=== PATIENT | male | born 1965 | race Caucasian/White ===

== ENCOUNTER 2016-08-03 22:24 | Inpatient (IN) | payer MEDICAID ==
[2016-08-03] MEDS ORDERED: NS 1,000 ML IV ONE ×2 (22:40→23:53)
--- NOTE | 2016-08-03 22:45 | EDPHY ---
H & P HPI/ROS: HPI CHIEF COMPLAINT: Alcohol intoxication, found unresponsive HISTORY OF PRESENT ILLNESS: This patient is a 61-year-old male presents emergency room by EMS after he was found sleeping on his backpack on the sidewalk with another homeless person please make contact with them they realized that he was highly intoxicated with alcohol was unable to care for himself unable to walk and they called 911. EMS arrived and evaluated him they found him to be lethargic unable to participate in the history and physical brought him here to the emergency room. Upon arrival to the emergency room the patient is highly intoxicated with alcohol is able to tell me his name and date of . Patient is unable to tell me how much she drank tonight or if he ingested any other substance. Unclear if there was trauma. However no trauma seen on exam of note history review of systems is limited due the patient's clinical mental state of acute alcohol intoxication. Past Medical History: Unknown medical history Past Surgical History: Unknown surgical history Social History: Homeless, drinks alcohol unclear further drugs or tobacco products Family History: Noncontributory ROS REVIEW OF SYSTEMS: A comprehensive 10 point review of systems is otherwise negative aside from elements mentioned in the history of present illness. Exam Constitutional triage nursing summary reviewed, vital signs reviewed, lethargic, intoxicated with alcohol Eyes normal conjunctivae and sclera, EOMI, horizontal beating nystagmus consistent with acute alcohol intoxication HENT head/neck: no evidence of acute trauma normal inspection, atraumatic, moist mucus membranes, no epistaxis, neck supple/ no meningismus, no raccoon eyes. Respiratory clear to auscultation bilaterally, normal breath sounds, no respiratory distress, no wheezing. Cardiovascular rate normal, regular rhythm, no murmur, no edema, distal pulses normal. Gastrointestinal soft, non-tender, no rebound, no guarding, normal bowel sounds, no distension, no pulsatile mass. Genitourinary no CVA tenderness. Musculoskeletal no midline vertebral tenderness, full range of motion, no calf swelling, no tenderness of extremities, no meningismus, good pulses, neurovascularly intact. Skin pink, warm, & dry, no rash, skin atraumatic. Neurologic lethargic, intoxicated with alcohol, horizontal beating nystagmus acute alcohol intoxication, moves all his extremities Psychiatric normal mood/affect. Heme/Lymph/Immune no lymphadenopathy. Differential Diagnosis: Includes but is not limited to in a particular order acute alcohol intoxication, Possible other substance, intracranial bleed, hypothermia, cold exposure Medical Decision Making:This patient be placed on full manager monitoring, patient had a CT scan of the head to rule out significant intracranial trauma given how sleepy is with alcohol, will check blood work including alcohol level. Patient will be gently hydrated. Re-evaluation: CT scan of the head without IV contrast. The results of the study are sinusitis and atrophy The study was read by Dr. Khan. I viewed the images myself on the PACS system. EKG interpretation by me on record in [email or web address] system. Impression time of EKG 09/29/1945 this is a junctional rhythm rate of 37. I do not appreciate a P and a QRS complex together regular. This appears to be ventricular conduction junctional rhythm. 1155: at this time it is unclear if he is symptomatic from this junctional bradycardia as he is highly intoxicated with alcohol in the 475 range. He has been placed on a full manager monitoring. He is being hydrated of continue closely monitor. His blood pressure is stable. 0430: Re-examination at this time this patient is much more sober however still slurring his speech is aching that he is intoxicated with alcohol still. Will continue monitor for better sobriety. 0642: Re-examination at this time this patient is much more sober. This patient is stable gait. He is not vomiting he is not slurring speech he is ready for discharge. He feels comfortable discharge plan. He is, cooperative. Source: Patient Constitutional: Initial Vital Signs Temperature (C) 36.7 C 08/03/16 22:25 Heart Rate 52 L 08/03/16 22:25 Respiratory Rate 16 08/03/16 22:25 Blood Pressure 124/86 H 08/03/16 22:25 O2 Sat (%) 93 08/03/16 22:25 O2 Delivery Mode Nasal Cannula O2 (L/minute) 3 Allergies/Adverse Reactions: Unable to Assess Allergy (Unverified 08/03/16 23:04) Home Medications: Medication Instructions Recorded NK [No Known Home Meds] 08/03/16 Medical Decision Making - Data Points Laboratory Results: Laboratory Results 08/03/16 22:45 08/03/16 22:45 08/03/16 22:45 WBC 2.13 L 10^3/uL (3.80-9.50) RBC 4.62 10^6/uL (4.40-6.38) Hgb 13.0 L g/dL (13.7-17.5) Hct 39.8 L % (40.0-51.0) MCV 86.1 fL (81.5-99.8) MCH 28.1 pg (27.9-34.1) MCHC 32.7 g/dL (32.4-36.7) RDW 16.8 H % (11.5-15.2) Plt Count 160 10^3/uL (150-400) MPV 9.7 fL (8.7-11.7) Neut % (Auto) 27.3 L % (39.3-74.2) Lymph % (Auto) 56.3 H % (15.0-45.0) [place] % (Auto) 13.6 H % (4.5-13.0) Eos % (Auto) 1.4 % (0.6-7.6) Baso % (Auto) 1.4 % (0.3-1.7) Nucleat RBC Rel Count 0.0 % (0.0-0.2) Absolute Neuts (auto) 0.58 L 10^3/uL (1.70-6.50) Absolute Lymphs (auto) 1.20 10^3/uL (1.00-3.00) Absolute Monos (auto) 0.29 L 10^3/uL (0.30-0.80) Absolute Eos (auto) 0.03 10^3/uL (0.03-0.40) Absolute Basos (auto) 0.03 10^3/uL (0.02-0.10) Absolute Nucleated RBC 0.00 10^3/uL (0-0.01) Immature Gran % 0.0 % (0.0-1.1) Immature Gran # 0.00 10^3/uL (0.00-0.10) Sodium 147 H mEq/L (134-144) Potassium 4.3 mEq/L (3.5-5.2) Chloride 109 mEq/L (97-110) Carbon Dioxide 22 mEq/l (22-31) Anion Gap 16 mEq/L (8-16) BUN 7 mg/dL (7-23) Creatinine 0.5 L mg/dL (0.7-1.3) Estimated GFR > 60 Glucose 245 H mg/dL (70-100) Calcium 8.7 mg/dL (8.5-10.4) Ethyl Alcohol 475 H* mg/dL (0-10) Medications Given: Discontinued Medications Sodium Chloride (Ns) 1,000 mls @ 0 mls/hr IV ONCE ONE PRN Reason: Wide Open Stop: 08/03/16 22:41 Last Admin: 08/03/16 22:50 Dose: 1,000 mls Sodium Chloride (Ns) 1,000 mls @ 0 mls/hr IV ONCE ONE PRN Reason: Wide Open Stop: 08/03/16 23:54 Last Admin: 08/04/16 01:30 Dose: 1,000 mls Multivitamins 10 ml/ Folic Acid 2.5 mg/ Thiamine HCl 100 mg/ Magnesium Sulfate 2 gm/Sodium Chloride 1,015.5 mls @ 0 mls/hr IV EDNOW ONE PRN Reason: As Directed Stop: 08/03/16 23:54 Last Admin: 08/04/16 00:20 Dose: 1,015.5 mls Departure - Departure Disposition: Home, Routine, Self-Care Clinical Impression: Alcoholic intoxication Qualifiers: Complication of substance-induced condition: uncomplicated Qualifier Code: ( F10.120) Alcohol abuse with intoxication, uncomplicated Condition: Good Instructions: Alcohol Intoxication (ED) Referrals: Patient,NotPresent [Primary Care Provider] - As per Instructions
[2016-08-03 22:55] LABS: ADD DIFF? NO; ADD MORPH? NO; ADD SCAN? NO; ATYPICAL LYMPHOCYTE FLAG 30 (0-99); FRAGMENT RBC FLAG 0 (0-99); HEMATOCRIT 39.8 % (40.0-51.0); LEFT SHIFT FLG 0 (0-99); LIPEMIA HEMOLYSIS FLAG 80 (0-99); MEAN CELL HEMOGLOBIN 28.1 pg (27.9-34.1); MEAN CELL HEMOGLOBIN CONCENTR. 32.7 g/dL (32.4-36.7); MEAN CELL VOLUME 86.1 fL (81.5-99.8); MEAN PLATELET VOLUME 9.7 fL (8.7-11.7); PLATELET CLUMPS FLAG 20 (0-99); PLATELET COUNT 160 10^3/uL (150-400); RED BLOOD CELL COUNT 4.62 10^6/uL (4.40-6.38); RED CELL DISTRIBUTION WIDTH 16.8 % (11.5-15.2)
[2016-08-03 23:17] LABS: ANION GAP 16 mEq/L (8-16); CALCIUM 8.7 mg/dL (8.5-10.4); CARBON DIOXIDE 22 mEq/l (22-31); CHLORIDE 109 mEq/L (97-110); CREATININE 0.5 mg/dL (0.7-1.3); GLOMERULAR FILTRATION RATE > 60; GLUCOSE 245 mg/dL (70-100); POTASSIUM 4.3 mEq/L (3.5-5.2); SODIUM 147 mEq/L (134-144)
--- NOTE | 2016-08-03 23:18 | CT ---
CT Brain (Without Contrast) at 2258 hours History: Altered mental status, EtOH. Comparison: None. Technique: Axial computed tomographic images of the brain without contrast. Dose reduction technique s were utilized. Findings: Ventricles, cisterns, and sulci are slightly widened. No hydrocephalus, midline shift/felicitas iation, or epidural/subdural hematomas. No acute intraparenchymal hemorrhage, definite infarct, or ma ss effect. Bone windows demonstrate no displaced fractures. Bilateral sinusitis worse in the right ma xillary sinus. Impression: 1. Sinusitis. 2. Mild atrophy. 3. No hemorrhage or mass effect. 4.Consider MRI of the brain without and with contrast enhancement, if there is continued clinical con cern. Findings and recommendations discussed with Emergency Department physician, Dr. Anant Ness at 23 10 hour, today. Final report concurs with initial preliminary interpretation.
[2016-08-03 23:28] LABS: ETHANOL SERUM 475 mg/dL (0-10)
--- NOTE | 2016-08-03 23:49 | CPEKG ---
Heart Rate: 37 RR Interval: 1622 QRSD Interval: 150 QT Interval: 628 QTC Interval: 493 QRS [place]: 69 T Wave [place]: 100 EKG Severity - ABNORMAL ECG - EKG Impression: JUNCTIONAL ESCAPE RHYTHM EKG Impression: NONSPECIFIC INTRAVENTRICULAR CONDUCTION DELAY Electronically Signed By: Loreto Ramos 04-Aug-2016 15:12:01
[2016-08-03] MEDS ORDERED: MVI WITH VIT K 10 ML, FOLIC ACID 2.5 MG, THIAMINE HCL 100 MG, MAGNESIUM SULFATE 2 GM in... IV ONE (23:53)
--- NOTE | 2016-08-04 07:39 | CPEKG ---
Heart Rate: 58 RR Interval: 1034 P-R Interval: 212 QRSD Interval: 90 QT Interval: 512 QTC Interval: 504 P [place]: 0 QRS [place]: 47 T Wave [place]: 88 EKG Severity - ABNORMAL ECG - EKG Impression: SINUS RHYTHM EKG Impression: FIRST DEGREE AV BLOCK EKG Impression: PROLONGED QT INTERVAL Electronically Signed By: Loreto Ramos 04-Aug-2016 15:11:41
[2016-08-04] MEDS ORDERED: chlordiazePOXIDE 25 MG CAP PO ONE (10:06)
[2016-08-04] MEDS ORDERED: LORazepam 1 MG TAB PO ONE (12:43)
[2016-08-04] MEDS ORDERED: CHLORDIAZEPOXIDE 25MG PREPK#6 BTL TAKEHOME ONE (13:17)
[2016-08-04] MEDS ORDERED: LORazepam 2 MG/ML INJ IVP ONE ×2 (13:45→13:55)
[2016-08-04] MEDS ORDERED: ONDANSETRON 4 MG/2 ML VIAL IVP PRN (15:37)
[2016-08-04] MEDS ORDERED: PROMETHAZINE HCL 25 MG/ML INJ IVP PRN (15:37)
[2016-08-04] MEDS ORDERED: diphenhydrAMINE 25 MG CAP PO PRN (15:37)
[2016-08-04] MEDS ORDERED: ACETAMINOPHEN 325 MG TAB PO PRN (15:37)
[2016-08-04] MEDS ORDERED: ONDANSETRON DISINTEGRATING 4 MG TAB PO PRN (15:37)
[2016-08-04] MEDS ORDERED: ACETAMINOPHEN 650 MG SUPP PR PRN (15:37)
[2016-08-04] MEDS ORDERED: D50W 25 GM/50 ML SYR IVP PRN (15:37)
[2016-08-04] MEDS ORDERED: THIAMINE HCL 500 MG in NS 100 ML IV ONE (15:39)
[2016-08-04] MEDS ORDERED: MAG HYDROX/AL HYDROX/SIMETH 30 ML UDCUP PO PRN (15:39)
[2016-08-04] MEDS: LORazepam 2 MG/ML INJ IVP PRN ×4 (16:57→23:51)
[2016-08-04] MEDS: NS 1,000 ML IV SCH (16:57)
[2016-08-04] MEDS: oxyCODONE IR 5 MG TAB PO PRN (17:33)
[2016-08-04] MEDS: INSULIN LISPRO 100 UNIT/ML SC SCH (17:34)
[2016-08-04] MEDS: chlordiazePOXIDE 25 MG CAP PO SCH ×2 (19:45→21:47)
--- NOTE | 2016-08-04 22:37 | GHP ---
[f rep st] HISTORY AND PHYSICAL DATE OF ADMISSION: 08/04/2016 CHIEF COMPLAINT: Intoxication. HISTORY: This is a 51-year-old man who has previously been seen at this hospital, however his chart is listed under a different MR number. He presents after being found by police acutely intoxicated a nd asleep outside. They did attempt to wake him up outside, but he was essentially unable to walk. They felt that given how intoxicated he was, he would need to be brought to the emergency room for fu rther evaluation. At time of my evaluation, patient was arousable and moving all four extremities, b ut essentially only able to mutter unintelligible words. I am unable to obtain essentially any histo ry from him, and therefore the entirety of this history is obtained per ER and EMS report. The patie nt was found to be hypothermic in the ER and tremulous, and likely beginning to have what appears to be alcohol withdrawal as well. PAST MEDICAL HISTORY: Alcohol abuse and diabetes. Polysubstance abuse, alcohol withdrawal and seizu re. Pancreatitis. FAMILY HISTORY: Notable for diabetes. SOCIAL HISTORY: Apparently patient is homeless. Heavy alcohol use is noted in his chart, though aga in I am unable to discuss this with him. Also apparently per chart review, he is and his wif e would be his decision maker. REVIEW OF SYSTEMS: This is unobtainable secondary to patient's obtundation. PHYSICAL EXAM: VITAL SIGNS: BP 105/65, heart rate 122, respiratory rate 18, O2 sat is 93% on room a ir, temperature is 36.7. GENERAL APPEARANCE: This is a disheveled malodorous man. He is quite somn olent though arousable, and when arousable is unintelligible. EYES: Anicteric. HENT: Poor dentiti on. Oropharynx is clear. CARDIOVASCULAR: Tachycardic, regular, no MRG. ABDOMEN: Soft, nontender, nondistended. EXTREMITIES: No clubbing, cyanosis or edema. SKIN: Warm, dry, well perfused. NEUR O/PSYCH: Patient moves all 4 extremities. He is not responding to commands or understandable when h e speaks. CLINICAL DATA: Labs reviewed significant for white blood cell count of 2.13, hemoglobin of [address] atelets of 160. Sodium of 147. Glucose of 245. Blood alcohol level of 475. Head CT reviewed and interpreted independently by myself shows no acute findings. EKG reviewed and interpreted showing sinus rhythm on 1 EKG and another one showing a junctional escap e rhythm with a heart rate of 37. ASSESSMENT AND PLAN: This is a 51-year-old man with past medical history of alcohol abuse as well as polysubstance abuse presenting with acute intoxication and hypothermia. 1. Acute alcohol intoxication. This is in the setting of a history of heavy alcohol abuse and withd yohana, with withdrawal seizures. He is already tremulous and showing evidence of withdrawal, despite a recent blood alcohol level 475. He will be monitored on CIWA. He may require a higher level of c are if his alcohol withdrawal become severe. 2. Hypothermia secondary to exposure. His temperature was as low as 31.8 initially, now up to 36.7 following passive rewarming. 3. Junctional bradycardia. This does seem to have resolved. It was in the setting of hypothermia. Monitoring on telemetry. 4. Diabetes. Will place patient on sliding scale. He is currently not able to take p.o. secondary to his somnolence and intoxication. 5. History of alcoholic hepatitis. LFTs have been ordered and are pending. He is not jaundiced on exam. 6. CODE STATUS: Full; per prior H and P's he is and his would be his MD OSORIO. 7. Disposition: Inpatient status. Suspect he will need greater than 48 hours stay for evaluation a nd management of above given his multiple active comorbidities. 8. Patient is new to my care. Old records reviewed and summarized as per HPI and Past Medical Histo ry. Care plan reviewed with ER physician, including plans for admission. 9. Again please note that the patient has been seen previously at [facility] but his chart is under a different medical record number for unclear reasons. Name is the same. /[id number]/MODL
[2016-08-04 22:47] LABS: ALBUMIN 3.3 g/dL (3.5-5.0); BILIRUBIN-CONJUGATED 0.2 mg/dL (0.0-0.5); BILIRUBIN-UNCONJUGATED 0.8 mg/dL (0.0-1.1); TOTAL PROTEIN 5.9 g/dL (6.3-8.2)
[2016-08-05] MEDS: LORazepam 2 MG/ML INJ IVP PRN (03:32)
[2016-08-05] MEDS: oxyCODONE IR 5 MG TAB PO PRN ×2 (03:32→21:14)
[2016-08-05 04:24] LABS: PHENCYCLIDINE URINE BCH < 6 ng/ml (NEGATIVE); TETRAHYDROCANNABINOL URINE < 5 ng/mL (NEGATIVE)
[2016-08-05 04:29] LABS: PHENCYCLIDINE URINE BCH NEGATIVE (NEGATIVE); TETRAHYDROCANNABINOL URINE NEGATIVE (NEGATIVE)
[2016-08-05 05:47] LABS: % IMMATURE GRANULYOCYTES 0.2 % (0.0-1.1); ABSOLUTE IMMATURE GRANULOCYTES 0.01 10^3/uL (0.00-0.10); ADD DIFF? NO; ADD MORPH? NO; ADD SCAN? NO; ATYPICAL LYMPHOCYTE FLAG 0 (0-99); FRAGMENT RBC FLAG 0 (0-99); HEMATOCRIT 30.5 % (40.0-51.0); HEMOGLOBIN 9.9 g/dL (13.7-17.5); LEFT SHIFT FLG 0 (0-99); LIPEMIA HEMOLYSIS FLAG 80 (0-99); MEAN CELL HEMOGLOBIN 28.1 pg (27.9-34.1); MEAN CELL HEMOGLOBIN CONCENTR. 32.5 g/dL (32.4-36.7); MEAN CELL VOLUME 86.6 fL (81.5-99.8); MEAN PLATELET VOLUME 11.3 fL (8.7-11.7); PLATELET CLUMPS FLAG 0 (0-99); PLATELET COUNT 119 10^3/uL (150-400); RED BLOOD CELL COUNT 3.52 10^6/uL (4.40-6.38); RED CELL DISTRIBUTION WIDTH 17.5 % (11.5-15.2)
[2016-08-05 06:05] LABS: ANION GAP 8 mEq/L (8-16); CALCIUM 8.2 mg/dL (8.5-10.4); CARBON DIOXIDE 23 mEq/l (22-31); CHLORIDE 105 mEq/L (97-110); CREATININE 0.6 mg/dL (0.7-1.3); GLOMERULAR FILTRATION RATE > 60; GLUCOSE 196 mg/dL (70-100); INR 1.13 (0.83-1.16); MAGNESIUM 1.4 mg/dL (1.6-2.3); POTASSIUM 3.6 mEq/L (3.5-5.2); PROTIME(PATIENT) 14.4 SEC (12.0-15.0); SODIUM 136 mEq/L (134-144)
[2016-08-05] MEDS: THIAMINE HCL 500 MG in NS 100 ML IV SCH (09:14)
[2016-08-05] MEDS: chlordiazePOXIDE 25 MG CAP PO SCH ×3 (09:18→21:15)
[2016-08-05] MEDS: FOLIC ACID 1 MG TAB PO SCH (09:18)
[2016-08-05] MEDS: MULTIVITAMINS 1 EACH TAB PO SCH (09:18)
[2016-08-05] MEDS: INSULIN LISPRO 100 UNIT/ML SC SCH ×3 (09:19→18:16)
[2016-08-05] MEDS: ENOXAPARIN 40 MG/0.4 ML SYR SC SCH (09:20)
[2016-08-05] MEDS: LORazepam 1 MG TAB PO PRN ×2 (14:18→22:24)
--- NOTE | 2016-08-05 14:35 | HOSPPROG ---
Hospitalist Progress Note Assessment/Plan: 51-year-old male found down in the outpatient setting. Brought to the emergency room secondary to altered mental status. Chart reviewed. This is my 1st encounter with the patient. Discussed with the disease case manager. # alcohol withdrawal Continue CIWA protocol Patient does not want to discontinue his alcohol consumption Will continue supportive care Consider adding beer to the patient's diet once his withdrawal is better # diabetes Continue blood sugar control # acute alcohol intoxication Continue supportive care # hypothermia The patient has been warmed Temperature is within normal limits # junctional bradycardia This is in the setting of hypothermia Has resolved since hypothermia resolved # tachycardia Likely secondary to withdrawal Continue supportive care # disposition Unclear at this time The patient is homeless Reviewed with disease case manager Will continue to assess and evaluate disposition on a daily basis Subjective: Feeling weak and tremulous. No pain currently. No specific concerns or issues at this time. Objective: Vital Signs Temp Pulse Resp BP Pulse Ox 36.7 C 111 H 18 124/93 H 95 08/05/16 12:00 08/05/16 12:00 08/05/16 12:00 08/05/16 12:00 08/05/16 12:00 Laboratory Results 08/05/16 04:21 08/05/16 04:21 08/04/16 08/05/16 08/06/16 05:59 05:59 05:59 Intake Total 5420 Output Total 1250 Balance 4170 PT 14.4 SEC (12.0-15.0) 08/05/16 04:21 INR 1.13 (0.83-1.16) 08/05/16 04:21 - Physical Exam Constitutional: not in pain, chronically ill appearing, unkempt Eyes: PERRL, anicteric sclera, EOMI Ears, Nose, Mouth, Throat: moist mucous membranes, hearing normal, ears appear normal Cardiovascular: tachycardia, No JVD, No edema Respiratory: no respiratory distress, no rales or rhonchi, reduced air movement Gastrointestinal: No tenderness, No ascites, No guarding Skin: warm, abrasion, No pressure ulcer Musculoskeletal: no joint effusions, muscular tenderness, generalized weakness Neurologic: AAOx3 Psychiatric: interacting appropriately, not encephalopathic, poor insight, poor judgement, poor memory ICD10 Worksheet Patient Problems: Problems Problem Status Diagnosed Alcoholic intoxication Acute
[2016-08-05] MEDS ORDERED: MAGNESIUM SULF 2 GM/WATER 50 ML IV ONE (15:30)
[2016-08-05] MEDS ORDERED: NICOTINE 21 MG/24 HR PATCH TD ONE (20:26)
[2016-08-05] MEDS: NS 1,000 ML IV SCH (23:50)
[2016-08-06] MEDS: oxyCODONE IR 5 MG TAB PO PRN (02:02)
[2016-08-06 03:00] VITALS: PULSE 108
[2016-08-06 04:53] LABS: % IMMATURE GRANULYOCYTES 0.3 % (0.0-1.1); ABSOLUTE IMMATURE GRANULOCYTES 0.01 10^3/uL (0.00-0.10); ABSOLUTE NRBC COUNT 0.02 10^3/uL (0-0.01); ADD DIFF? NO; ADD MORPH? NO; ADD SCAN? NO; ATYPICAL LYMPHOCYTE FLAG 0 (0-99); FRAGMENT RBC FLAG 0 (0-99); HEMATOCRIT 30.6 % (40.0-51.0); LEFT SHIFT FLG 0 (0-99); LIPEMIA HEMOLYSIS FLAG 80 (0-99); MEAN CELL HEMOGLOBIN CONCENTR. 32.7 g/dL (32.4-36.7); MEAN CELL VOLUME 85.7 fL (81.5-99.8); MEAN PLATELET VOLUME 10.6 fL (8.7-11.7); NRBC-AUTO% 0.5 % (0.0-0.2); PLATELET CLUMPS FLAG 10 (0-99); PLATELET COUNT 97 10^3/uL (150-400); RED BLOOD CELL COUNT 3.57 10^6/uL (4.40-6.38); RED CELL DISTRIBUTION WIDTH 17.3 % (11.5-15.2)
[2016-08-06 05:12] LABS: ANION GAP 8 mEq/L (8-16); CALCIUM 8.6 mg/dL (8.5-10.4); CARBON DIOXIDE 24 mEq/l (22-31); CHLORIDE 103 mEq/L (97-110); CREATININE 0.7 mg/dL (0.7-1.3); GLOMERULAR FILTRATION RATE > 60; GLUCOSE 295 mg/dL (70-100); MAGNESIUM 1.8 mg/dL (1.6-2.3); POTASSIUM 3.7 mEq/L (3.5-5.2); SODIUM 135 mEq/L (134-144)
[2016-08-06 07:46] VITALS: BP 149/110; RESP 16; TEMP 97.7; O2SAT 96
[2016-08-06] MEDS: FOLIC ACID 1 MG TAB PO SCH (08:22)
[2016-08-06] MEDS: ENOXAPARIN 40 MG/0.4 ML SYR SC SCH ×2 (08:23→08:24)
[2016-08-06] MEDS: MULTIVITAMINS 1 EACH TAB PO SCH (08:23)
[2016-08-06] MEDS: chlordiazePOXIDE 25 MG CAP PO SCH (08:30)
[2016-08-06] MEDS: INSULIN LISPRO 100 UNIT/ML SC SCH (09:07)
[2016-08-06] MEDS: THIAMINE HCL 500 MG in NS 100 ML IV SCH (09:17)
--- NOTE | 2016-08-06 13:13 | GDS ---
[f rep st] DISCHARGE SUMMARY DISCHARGE DIAGNOSES: 1. Alcohol withdrawal. 2. Acute intoxication. 3. Diabetes mellitus. 4. Hypothermia. 5. Junctional bradycardia. 6. Tachycardia. STUDIES AND PROCEDURES DONE: CT of the head. PHYSICAL EXAM: GENERAL: The patient is alert. VITAL SIGNS: Afebrile at 36.5, pulse is 108, respir atory rate 16, blood pressure is 149/110. He is saturating 96% on room air. I have seen and evaluat ed the patient on the day of discharge. HOSPITAL COURSE: The patient is a 51-year-old male who was found down in the outpatient setting and brought to the emergency room. He was evaluated and diagnosed with: 1. Acute intoxication. This condition has resolved. 2. Severe alcohol withdrawal. During this hospital course, the patient was treated with CIWA protoc ol and supportive management. He was given thiamine and Librium. His withdrawal symptoms have signi ficantly improved. However, he remains tachycardic at the time of disposition. He is able to ambula te independently and feels comfortable. He states that he does not want to discontinue his alcohol c onsumption and plans to continue alcohol in the outpatient setting. 3. Hypertension. The patient was offered antihypertensive medications during this hospitalization a nd has chosen to refuse them. He will follow up at [facility] in the outpatient setting. 4. Diabetes mellitus. The patient's blood glucose is intermittently elevated. He is returning to h is regular medications. 5. Hypothermia. This is in the setting of acute intoxication. The patient is homeless and was foun d down. He was warmed and his temperature is normal. 6. Junctional bradycardia. This is in the setting of hypothermia. This has resolved. 7. Tachycardia. This is likely secondary to his acute withdrawal process and will resolve in the fu ture. DISPOSITION: The patient will be discharged to the street. There are no pending studies. Again, he has been offered antihypertensive medications as well as outpatient followup. He is refusing either . He was visited by a director of casework services who offered [facility] . He states that he does not wish to see any medical providers in the outpatient setting. He will g o to [facility] if it is felt necessary. I have educated the patient with regard to his dis continuation of his chronic alcohol. Again, he states that he has no desire to discontinue alcohol u se. I spent greater than 35 minutes in the care, coordination, and management of this patient's disp osition. /[id number]/MODL
[2016-08-07] MEDS ORDERED: THIAMINE HCL 100 MG TAB PO SCH (09:00)
== END 2016-08-06 10:54 | disposition home or self-care (01) | DRG 897 ==
LOC: EDBD 22:24 → MERGE 08-04 15:37 → OBSVTOIN 08-04 15:37 → F3E 08-04 16:31
PROVIDERS: ADMIT Internal Medicine; ATTEND Hospitalist
DX: F10.239 Alcohol dependence with withdrawal, unspecified (principal); F10.220 Alcohol dependence with intoxication, uncomplicated; E11.9 Type 2 diabetes mellitus without complications; T68.XXXA Hypothermia, initial encounter; X31.XXXA Exposure to excessive natural cold, initial encounter; Y92.480 Sidewalk as the place of occurrence of the external cause; R00.1 Bradycardia, unspecified; R00.0 Tachycardia, unspecified; I10 Essential (primary) hypertension; Z59.0 Homelessness
CPT/HCPCS: 80307; 96365; 97116-GP; 97161-GP; 97165-GO; G0480; J1650; J1815; J3411

== ENCOUNTER 2016-08-08 17:03 | Emergency (ER) | payer MEDICAID ==
--- NOTE | 2016-08-08 17:30 | EDPHY ---
H & P Time Seen by Provider: 08/08/16 17:10 HPI/ROS: CHIEF COMPLAINT: Shooting pains in my legs HISTORY OF PRESENT ILLNESS: Patient was discharged 08/06/2016 with alcohol withdrawal and diabetes. Discharge summary personally reviewed by myself. In addition history and physical dated 03/22/2016 reviewed personally by myself. Patient presents today saying he last alcohol was 10 minutes before arrival. He says he has for months been having shooting pains in my legs which are sharp and intermittent and have been keeping him awake at night. Not associated with any recent trauma or back pain or incontinence. Is associated with generalized malaise and weakness. He does continue to drink. No recent seizures or fall or injury. REVIEW OF SYSTEMS: Eye: no change in vision ENT: no sore throat Cardiac: no chest pain or syncope Pulmonary: no cough or SOB Abdomen: no vomiting, diarrhea, abdominal pain Musculoskeletal: no back pain Skin: no rash Neuro: no headache Constitutional: no fever : no urinary symptoms A comprehensive 10 point review of systems is otherwise negative aside from elements mentioned in the history of present illness. PAST MEDICAL HISTORY: Includes alcoholism, diabetes, pancreatitis, withdrawal seizures. Social history: Tobacco user and alcohol 10 minutes prior to arrival. General Appearance: Alert and conversant, cooperative. Eyes: No scleral icterus. ENT, Mouth: Normal mucous membranes. Respiratory: Normal respiratory effort, breath sounds equal, lungs are clear to auscultation. Cardiovascular: Regular rate and rhythm. Gastrointestinal: Abdomen is soft and non tender. Neurological: Alert and oriented x3. Normally conversant. Face symmetric, normal movement and sensation in all extremities. Ambulatory in the emergency department and not ataxic. Skin: Warm and dry, no rashes. No lacerations. Musculoskeletal: No peripheral edema and no joint swelling. No spinal tenderness. Both feet are warm and well perfused without evidence of cellulitis or frostbite. No skin discoloration or erythema or lymphangitis or blisters. Psychiatric: Not agitated. Patient states he intermittently hears voices, songs about bashing me. Not currently hearing voices or hallucinating. Not suicidal or homicidal. Emergency Department course/MDM: CBC, chemistry panel, alcohol level. 1800: Patient very slightly tremulous. 1 mg oral Ativan. Patient is asking if I think "he has ALS" and wants to know if I can admit him to the hospital for definitive testing so we can find out. I told him that he can be referred to Neurology. Currently I do not think the patient has evidence of cauda equina, compartment syndrome, frostbite, acute spinal cord compromise. I think that diabetic neuropathy is possible. He is not currently hallucinating or hearing voices and I think that delirium tremens also unlikely in the emergency department. The patient states to me he is not interested in alcohol cessation. Ambulatory at the time of discharge. Does not have clinical evidence of delirium tremens at this time. Smoking Status: Current every day smoker Constitutional: Initial Vital Signs Temperature (C) 36.4 C 08/08/16 17:05 Heart Rate 105 H 08/08/16 17:05 Respiratory Rate 16 08/08/16 17:05 Blood Pressure 145/92 H 08/08/16 17:05 O2 Delivery Mode Room Air Allergies/Adverse Reactions: MILK THISTEL Allergy (Uncoded 08/08/16 17:09) Home Medications: Medication Instructions Recorded No Known Home Meds 08/08/16 Medical Decision Making Differential Diagnosis: Differential considered including but not limited to frostbite, spinal cord abnormality, spinal stenosis, cauda equina, peripheral neuropathy, fracture or compartment syndrome. - Data Points Laboratory Results: Laboratory Results 08/08/16 17:25 08/08/16 17:25 08/08/16 17:25 WBC 4.55 10^3/uL (3.80-9.50) RBC 3.43 L 10^6/uL (4.40-6.38) Hgb 9.8 L g/dL (13.7-17.5) Hct 30.5 L % (40.0-51.0) MCV 88.9 fL (81.5-99.8) MCH 28.6 pg (27.9-34.1) MCHC 32.1 L g/dL (32.4-36.7) RDW 17.3 H % (11.5-15.2) Plt Count 132 L 10^3/uL (150-400) MPV 10.5 fL (8.7-11.7) Neut % (Auto) 51.6 % (39.3-74.2) Lymph % (Auto) 31.4 % (15.0-45.0) [place] % (Auto) 12.1 % (4.5-13.0) Eos % (Auto) 4.0 % (0.6-7.6) Baso % (Auto) 0.7 % (0.3-1.7) Nucleat RBC Rel Count 0.0 % (0.0-0.2) Absolute Neuts (auto) 2.35 10^3/uL (1.70-6.50) Absolute Lymphs (auto) 1.43 10^3/uL (1.00-3.00) Absolute Monos (auto) 0.55 10^3/uL (0.30-0.80) Absolute Eos (auto) 0.18 10^3/uL (0.03-0.40) Absolute Basos (auto) 0.03 10^3/uL (0.02-0.10) Absolute Nucleated RBC 0.00 10^3/uL (0-0.01) Immature Gran % 0.2 % (0.0-1.1) Immature Gran # 0.01 10^3/uL (0.00-0.10) Sodium 137 mEq/L (134-144) Potassium 3.5 mEq/L (3.5-5.2) Chloride 105 mEq/L (97-110) Carbon Dioxide 21 L mEq/l (22-31) Anion Gap 11 mEq/L (8-16) BUN 6 L mg/dL (7-23) Creatinine 0.7 mg/dL (0.7-1.3) Estimated GFR > 60 Glucose 260 H mg/dL (70-100) Calcium 8.7 mg/dL (8.5-10.4) Ethyl Alcohol 55 H mg/dL (0-10) Medications Given: Discontinued Medications Ibuprofen (Motrin) 600 mg PO EDNOW ONE Stop: 08/08/16 18:04 Last Admin: 08/08/16 18:05 Dose: 600 mg Lorazepam (Ativan Injection) 2 mg IVP EDNOW ONE Stop: 08/08/16 17:57 Last Admin: 08/08/16 18:24 Dose: Not Given Lorazepam (Ativan) 1 mg PO EDNOW ONE Stop: 08/08/16 18:02 Last Admin: 08/08/16 18:20 Dose: 1 mg Departure - Departure Disposition: Home, Routine, Self-Care Clinical Impression: Alcoholism Condition: Good Instructions: Alcohol Intoxication (ED), Alcohol Dependence (ED) Referrals: Mingo Méndez MD [Primary Care Provider] - As per Instructions Marc Grewal MD [Medical Doctor] - As per Instructions (neurology referral)
[2016-08-08 17:38] LABS: % IMMATURE GRANULYOCYTES 0.2 % (0.0-1.1); ABSOLUTE IMMATURE GRANULOCYTES 0.01 10^3/uL (0.00-0.10); ADD DIFF? NO; ADD MORPH? NO; ADD SCAN? NO; ATYPICAL LYMPHOCYTE FLAG 30 (0-99); FRAGMENT RBC FLAG 20 (0-99); HEMATOCRIT 30.5 % (40.0-51.0); HEMOGLOBIN 9.8 g/dL (13.7-17.5); LEFT SHIFT FLG 0 (0-99); LIPEMIA HEMOLYSIS FLAG 80 (0-99); MEAN CELL HEMOGLOBIN 28.6 pg (27.9-34.1); MEAN CELL HEMOGLOBIN CONCENTR. 32.1 g/dL (32.4-36.7); MEAN CELL VOLUME 88.9 fL (81.5-99.8); MEAN PLATELET VOLUME 10.5 fL (8.7-11.7); PLATELET CLUMPS FLAG 10 (0-99); PLATELET COUNT 132 10^3/uL (150-400); RED BLOOD CELL COUNT 3.43 10^6/uL (4.40-6.38); RED CELL DISTRIBUTION WIDTH 17.3 % (11.5-15.2)
[2016-08-08 17:53] LABS: ANION GAP 11 mEq/L (8-16); CALCIUM 8.7 mg/dL (8.5-10.4); CARBON DIOXIDE 21 mEq/l (22-31); CHLORIDE 105 mEq/L (97-110); CREATININE 0.7 mg/dL (0.7-1.3); ETHANOL SERUM 55 mg/dL (0-10); GLOMERULAR FILTRATION RATE > 60; GLUCOSE 260 mg/dL (70-100); POTASSIUM 3.5 mEq/L (3.5-5.2); SODIUM 137 mEq/L (134-144)
[2016-08-08] MEDS ORDERED: LORazepam 2 MG/ML INJ IVP ONE (17:56)
[2016-08-08] MEDS ORDERED: LORazepam 1 MG TAB PO ONE (18:01)
[2016-08-08] MEDS ORDERED: IBUPROFEN 600 MG TAB PO ONE (18:03)
[2016-08-08 18:26] VITALS: BP 145/95; PULSE 92; RESP 18; TEMP 98.1; O2SAT 100
== END 2016-08-08 18:37 | disposition home or self-care (01) ==
DX: F10.10 Alcohol abuse, uncomplicated (principal); E11.9 Type 2 diabetes mellitus without complications; F17.200 Nicotine dependence, unspecified, uncomplicated
CPT/HCPCS: G0480

== ENCOUNTER 2016-10-10 11:20 | Emergency (ER) | payer MEDICAID ==
[2016-10-10] MEDS ORDERED: NS 1,000 ML IV ONE (11:25)
--- NOTE | 2016-10-10 11:29 | EDPHY ---
HPI/HX/ROS/PE/MDM Narrative: CHIEF COMPLAINT: Found down HPI: The patient is a 51 year-old man with a history of extensive ED visits related to alcohol intoxication and withdrawal. The patient was found passed out, covered in own stool inside a public shower in a park. He states he does not know what happened. He complains of generally not feeling well. BGL was normal on scene and no medications were given. Apparently the 911 call was for unresponsive green party, but the patient was responsive for EMS. REVIEW OF SYSTEMS: Aside from elements discussed in the HPI, a comprehensive 10-point review of systems was reviewed and is negative. PMH:Alcoholism. History of alcohol withdrawal, hypertension, diabetes. SOCIAL HISTORY: Homeless. Admits to alcohol abuse. Denies drug abuse. PHYSICAL EXAM: General:Patient is alert, in no acute distress. ENT:Eyes are normal to inspection. ENT inspection normal. Neck: Normal inspection. Full range of motion. Respiratory:No respiratory distress. Breath sounds normal bilaterally. Cardiovascular: Regular rate and rhythm. Strong peripheral pulses. Normal cap refill. Abdomen:The abdomen is nontender to palpation. There are no peritoneal signs. There are normal bowel sounds. Back: Normal to inspection. No tenderness to palpation. Skin: Normal color. No rash. Warm and dry. Extremities: Normal appearance. Full range of motion. Neuro: Normal motor function. Normal sensory function. ED Course: 1300: Patient noted to have large formed brown stool. 1340: Patient ambulatory around ED without assistance. No sign of alcohol withdrawal at this time. MDM: This patient presents after being found down with altered mental status. We performed an extensive workup which is negative except for signs of severe alcohol intoxication. In reviewing the patient's chart, this is similar to multiple previous ER presentations. He has had several CTH in the past so I think the risk of repeat radiation from CTH probably outweighs benefit. At this point, the patient appears to have AMS secondary to intoxication, and can be safely transported to the [facility]. - Data Points Laboratory Results: Laboratory Results 10/10/16 11:31 10/10/16 11:31 10/10/16 10/10/16 11:31 11:31 WBC 6.66 10^3/uL 10^3/uL (3.80-9.50) RBC 3.83 10^6/uL L 10^6/uL (4.40-6.38) Hgb 11.7 g/dL L g/dL (13.7-17.5) Hct 34.8 % L % (40.0-51.0) MCV 90.9 fL fL (81.5-99.8) MCH 30.5 pg pg (27.9-34.1) MCHC 33.6 g/dL g/dL (32.4-36.7) RDW 19.8 % H % (11.5-15.2) Plt Count 79 10^3/uL L 10^3/uL (150-400) MPV 8.9 fL fL (8.7-11.7) Neut % (Auto) 77.6 % H % (39.3-74.2) Lymph % (Auto) 14.4 % L % (15.0-45.0) [place] % (Auto) 6.3 % % (4.5-13.0) Eos % (Auto) 0.5 % L % (0.6-7.6) Baso % (Auto) 0.3 % % (0.3-1.7) Nucleat RBC Rel Count 0.0 % % (0.0-0.2) Absolute Neuts (auto) 5.17 10^3/uL 10^3/uL (1.70-6.50) Absolute Lymphs (auto) 0.96 10^3/uL L 10^3/uL (1.00-3.00) Absolute Monos (auto) 0.42 10^3/uL 10^3/uL (0.30-0.80) Absolute Eos (auto) 0.03 10^3/uL 10^3/uL (0.03-0.40) Absolute Basos (auto) 0.02 10^3/uL 10^3/uL (0.02-0.10) Absolute Nucleated RBC 0.00 10^3/uL 10^3/uL (0-0.01) Immature Gran % 0.9 % % (0.0-1.1) Immature Gran # 0.06 10^3/uL 10^3/uL (0.00-0.10) Sodium 146 mEq/L H mEq/L (134-144) Potassium 4.1 mEq/L mEq/L (3.5-5.2) Chloride 107 mEq/L mEq/L (97-110) Carbon Dioxide 23 mEq/l mEq/l (22-31) Anion Gap 16 mEq/L mEq/L (8-16) BUN 12 mg/dL mg/dL (7-23) Creatinine 0.6 mg/dL L mg/dL (0.7-1.3) Estimated GFR > 60 Glucose 123 mg/dL H mg/dL (70-100) Calcium 8.2 mg/dL L mg/dL (8.5-10.4) Troponin I < 0.012 ng/mL ng/mL (0-0.034) Ethyl Alcohol 367 mg/dL H mg/dL (0-10) Medications Given: Discontinued Medications Sodium Chloride (Ns) 1,000 mls @ 0 mls/hr IV ONCE ONE PRN Reason: Wide Open Stop: 10/10/16 11:26 Last Admin: 10/10/16 11:29 Dose: 1,000 mls General Time Seen by Provider: 10/10/16 11:20 Initial Vital Signs: Initial Vital Signs Temperature (C) 36.5 C 10/10/16 11:30 Heart Rate 78 10/10/16 11:30 Respiratory Rate 18 10/10/16 11:30 Blood Pressure 129/77 H 10/10/16 11:30 O2 Sat (%) 99 10/10/16 11:30 O2 Delivery Mode Room Air Allergies/Adverse Reactions: No Allergies [NKDA] Allergy (Verified 08/04/16 18:19) MILK THISTEL Allergy (Uncoded 08/08/16 17:09) Home Medications: Medication Instructions Recorded Insulin Detemir [Levemir Flextouch] 14 unit SQ DAILY 08/04/16 Insulin Lispro [Humalog Kwikpen 10 unit SQ TIDMEAL 08/04/16 U-100] Acetaminophen [Tylenol 325mg (*)] 650 mg PO Q4HRS PRN #0 tab 08/06/16 Folic Acid [Folic Acid 1 MG (*)] 1 mg PO DAILY #0 tab 08/06/16 Multivitamins [Multivitamin (*)] 1 each PO DAILY #0 tab 08/06/16 Thiamine HCl [Vitamin B-1] 100 mg PO DAILY #0 tab 08/06/16 No Known Home Meds 08/08/16 Departure - Departure Disposition: Home, Routine, Self-Care Clinical Impression: Alcohol intoxication, Altered mental status Condition: Good Instructions: Abuse of Alcohol (ED) Additional Instructions: Follow-up with your primary doctor within 72 hours. Return to the Emergency Department for fever, chest pain, shortness of breath, increasing pain or other worsening of condition. Referrals: Patient,NotPresent [Unknown] - As per Instructions
[2016-10-10 11:33] VITALS: TEMP 97.7
[2016-10-10 11:42] LABS: % IMMATURE GRANULYOCYTES 0.9 % (0.0-1.1); ABSOLUTE IMMATURE GRANULOCYTES 0.06 10^3/uL (0.00-0.10); ADD DIFF? NO; ADD MORPH? NO; ADD SCAN? NO; ATYPICAL LYMPHOCYTE FLAG 10 (0-99); FRAGMENT RBC FLAG 0 (0-99); HEMATOCRIT 34.8 % (40.0-51.0); HEMOGLOBIN 11.7 g/dL (13.7-17.5); LEFT SHIFT FLG 0 (0-99); LIPEMIA HEMOLYSIS FLAG 80 (0-99); MEAN CELL HEMOGLOBIN 30.5 pg (27.9-34.1); MEAN CELL HEMOGLOBIN CONCENTR. 33.6 g/dL (32.4-36.7); MEAN CELL VOLUME 90.9 fL (81.5-99.8); MEAN PLATELET VOLUME 8.9 fL (8.7-11.7); PLATELET CLUMPS FLAG 0 (0-99); PLATELET COUNT 79 10^3/uL (150-400); RED BLOOD CELL COUNT 3.83 10^6/uL (4.40-6.38); RED CELL DISTRIBUTION WIDTH 19.8 % (11.5-15.2)
--- NOTE | 2016-10-10 11:43 | CPEKG ---
Heart Rate: 74 RR Interval: 811 P-R Interval: 168 QRSD Interval: 94 QT Interval: 412 QTC Interval: 457 P [place]: 57 QRS [place]: 79 T Wave [place]: 67 EKG Severity - NORMAL ECG - EKG Impression: SINUS RHYTHM Electronically Signed By: Luis Fernando Moyer 10-Oct-2016 14:53:08
[2016-10-10 12:05] LABS: ANION GAP 16 mEq/L (8-16); CALCIUM 8.2 mg/dL (8.5-10.4); CARBON DIOXIDE 23 mEq/l (22-31); CHLORIDE 107 mEq/L (97-110); CREATININE 0.6 mg/dL (0.7-1.3); GLOMERULAR FILTRATION RATE > 60; GLUCOSE 123 mg/dL (70-100); POTASSIUM 4.1 mEq/L (3.5-5.2); SODIUM 146 mEq/L (134-144)
[2016-10-10 12:16] LABS: TROPONIN I < 0.012 ng/mL (0-0.034)
[2016-10-10 12:30] LABS: ETHANOL SERUM 367 mg/dL (0-10)
[2016-10-10 12:55] VITALS: RESP 18
[2016-10-10 14:13] VITALS: BP 128/75; PULSE 89; O2SAT 94
== END 2016-10-10 14:13 | disposition home or self-care (01) ==
LOC: EDUNIT#
DX: F10.129 Alcohol abuse with intoxication, unspecified (principal); R41.82 Altered mental status, unspecified; I10 Essential (primary) hypertension; E11.9 Type 2 diabetes mellitus without complications; Z79.4 Long term (current) use of insulin
CPT/HCPCS: G0480

== ENCOUNTER 2016-10-10 15:23 | Inpatient (IN) | payer MEDICAID ==
[2016-10-10] MEDS ORDERED: LORazepam 2 MG/ML INJ IVP ONE ×2 (15:43→18:08)
[2016-10-10] MEDS ORDERED: NS 1,000 ML IV ONE (15:44)
--- NOTE | 2016-10-10 15:56 | EDPHY ---
H & P Stated Complaint: dc from ed/? fell thinks he broke r hip/neck pain Time Seen by Provider: 10/10/16 15:31 HPI/ROS: CHIEF COMPLAINT: Neck pain, right hip pain after mechanical fall HISTORY OF PRESENT ILLNESS: The patient presents to the ED for evaluation of neck pain and right hip pain after mechanical fall. The patient was in the ED earlier today with alcohol intoxication and discharged after having sobriety inability to walk independently. The patient [facility] at that point time. The patient did developed symptoms of alcohol withdrawal after discharge. 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 The patient complains of 9/10 pain in his right hip. He also complains of pain throughout the right side of his neck. The patient denies abdominal pain, numbness, weakness or other concerns. REVIEW OF SYSTEMS: A comprehensive 10 point review of systems is otherwise negative aside from elements mentioned in the history of present illness. Source: Patient Exam Limitations: No limitations - Personal History Current Tetanus/Diphtheria Vaccine: Yes Tetanus Vaccine Date: 11/04/12 - Medical/Surgical History Hx Asthma: No Hx Chronic Respiratory Disease: No Hx Diabetes: Yes Hx Cardiac Disease: No Hx Renal Disease: No Hx Cirrhosis: No Hx Alcoholism: Yes Hx HIV/AIDS: No Hx Splenectomy or Spleen Trauma: No Other PMH: ETOH ABUSE. insulin dependent diabetic non compliant - Social History Smoking Status: Current every day smoker - Physical Exam Exam: General Appearance: Tremulous, no acute distress, thin male Head: Atraumatic Eyes: Pupils equal, round, reactive ENT, Mouth: No hemotympanum, no oral trauma Neck: Nontender, trachea midline Respiratory: No chest wall tender, subcutaneous air, lungs clear bilaterally Cardiovascular: Tachycardic Abdomen: Abdomen is soft and nontender, pelvis stable Skin: No lacerations, No abrasion Back: No midline T/L/S pain Extremities: Tenderness to palpation and painful range of motion noted in the right hip Neurological: A&Ox3, normal motor function, normal sensory exam Constitutional: Initial Vital Signs Temperature (C) 36.2 C 10/10/16 15:24 Heart Rate 86 10/10/16 15:24 Respiratory Rate 18 10/10/16 15:24 Blood Pressure 98/74 L 10/10/16 15:24 O2 Sat (%) 95 10/10/16 15:24 O2 Delivery Mode Room Air Allergies/Adverse Reactions: No Allergies [NKDA] Allergy (Verified 10/10/16 15:24) MILK THISTEL Allergy (Uncoded 08/08/16 17:09) Home Medications: Medication Instructions Recorded Insulin Detemir [Levemir Flextouch] 14 unit SQ DAILY 08/04/16 Insulin Lispro [Humalog Kwikpen 10 unit SQ TIDMEAL 08/04/16 U-100] Acetaminophen [Tylenol 325mg (*)] 650 mg PO Q4HRS PRN #0 tab 08/06/16 Folic Acid [Folic Acid 1 MG (*)] 1 mg PO DAILY #0 tab 08/06/16 Multivitamins [Multivitamin (*)] 1 each PO DAILY #0 tab 08/06/16 Thiamine HCl [Vitamin B-1] 100 mg PO DAILY #0 tab 08/06/16 Medical Decision Making - Diagnostics Imaging: Right hip x-ray: Negative for acute fracture. Images reviewed by myself and discussed with radiologist. CT head without contrast: Negative for intracranial hemorrhage, skull fracture or other acute abnormality. Images reviewed by myself and discussed with radiologist Dr. Emile Gentile. CT cervical spine without contrast: Negative for acute fracture. Images reviewed by myself. ED Course/Re-evaluation: The patient presents to the ED with traumatic complaints of headache, neck pain and right hip pain following a mechanical fall secondary to mild alcohol withdrawal. The patient had an IV established. He received 2 mg of IV Ativan. The patient was taken for a stat CT scan of his head and cervical spine which demonstrate no evidence of an acute fracture or intracranial hemorrhage. X-ray of his right hip demonstrates no evidence of an acute fracture. I re-evaluated the patient at 6:00 p.m.. He continues to have symptoms of alcohol withdrawal. The patient was given 50 mg of Librium. The patient is not eligible to go to the [facility] secondary to his diabetes and insulin requirement. The patient will be admitted to the hospital for observation this evening as he is homeless and would not be well served being discharged into the wet snowy night. Consultation was made with Dr. Eli from the hospitalist service who will admit the patient Differential Diagnosis: Differential diagnosis considered includes intracranial hemorrhage, alcohol withdrawal, metabolic abnormality, hip fracture, cervical spine fracture - Data Points Laboratory Results: Laboratory Results 10/10/16 16:00 10/10/16 16:45 10/10/16 10/10/16 10/10/16 16:45 16:00 16:00 WBC 5.81 10^3/uL 10^3/uL (3.80-9.50) RBC 3.78 10^6/uL L 10^6/uL (4.40-6.38) Hgb 11.7 g/dL L g/dL (13.7-17.5) Hct 34.1 % L % (40.0-51.0) MCV 90.2 fL fL (81.5-99.8) MCH 31.0 pg pg (27.9-34.1) MCHC 34.3 g/dL g/dL (32.4-36.7) RDW 19.9 % H % (11.5-15.2) Plt Count 88 10^3/uL L 10^3/uL (150-400) MPV 9.4 fL fL (8.7-11.7) Neut % (Auto) 79.0 % H % (39.3-74.2) Lymph % (Auto) 14.8 % L % (15.0-45.0) [place] % (Auto) 5.3 % % (4.5-13.0) Eos % (Auto) 0.3 % L % (0.6-7.6) Baso % (Auto) 0.3 % % (0.3-1.7) Nucleat RBC Rel Count 0.3 % H % (0.0-0.2) Absolute Neuts (auto) 4.58 10^3/uL 10^3/uL (1.70-6.50) Absolute Lymphs (auto) 0.86 10^3/uL L 10^3/uL (1.00-3.00) Absolute Monos (auto) 0.31 10^3/uL 10^3/uL (0.30-0.80) Absolute Eos (auto) 0.02 10^3/uL L 10^3/uL (0.03-0.40) Absolute Basos (auto) 0.02 10^3/uL 10^3/uL (0.02-0.10) Absolute Nucleated RBC 0.02 10^3/uL H 10^3/uL (0-0.01) Immature Gran % 0.3 % % (0.0-1.1) Immature Gran # 0.02 10^3/uL 10^3/uL (0.00-0.10) Turbidity REJ Sodium 138 mEq/L mEq/L REJ (134-144) Potassium 3.8 mEq/L mEq/L REJ (3.5-5.2) Chloride 102 mEq/L mEq/L REJ (97-110) Carbon Dioxide 23 mEq/l mEq/l REJ (22-31) Anion Gap 13 mEq/L mEq/L REJ (8-16) BUN 12 mg/dL mg/dL REJ (7-23) Creatinine 0.5 mg/dL L mg/dL REJ (0.7-1.3) Estimated GFR > 60 REJ Glucose 166 mg/dL H mg/dL REJ (70-100) Calcium 8.2 mg/dL L mg/dL REJ (8.5-10.4) Specimen Hemolysis REJ Medications Given: Discontinued Medications Sodium Chloride (Ns) 1,000 mls @ 0 mls/hr IV ONCE ONE PRN Reason: Wide Open Stop: 10/10/16 15:45 Last Admin: 10/10/16 16:13 Dose: 1,000 mls Lorazepam (Ativan Injection) 1 mg IVP EDNOW ONE Stop: 10/10/16 15:44 Last Admin: 10/10/16 16:14 Dose: 1 mg Departure - Departure Disposition: [facility] In[facility] Acute Clinical Impression: Alcohol withdrawal, Contusion of right hip, Cervical strain, acute Condition: Good Referrals: Mingo Méndez MD [Primary Care Provider] - As per Instructions
[2016-10-10 16:21] LABS: % IMMATURE GRANULYOCYTES 0.3 % (0.0-1.1); ABSOLUTE IMMATURE GRANULOCYTES 0.02 10^3/uL (0.00-0.10); ABSOLUTE NRBC COUNT 0.02 10^3/uL (0-0.01); ADD DIFF? NO; ADD MORPH? NO; ADD SCAN? NO; ATYPICAL LYMPHOCYTE FLAG 0 (0-99); FRAGMENT RBC FLAG 20 (0-99); HEMATOCRIT 34.1 % (40.0-51.0); HEMOGLOBIN 11.7 g/dL (13.7-17.5); LEFT SHIFT FLG 0 (0-99); LIPEMIA HEMOLYSIS FLAG 90 (0-99); MEAN CELL HEMOGLOBIN CONCENTR. 34.3 g/dL (32.4-36.7); MEAN CELL VOLUME 90.2 fL (81.5-99.8); MEAN PLATELET VOLUME 9.4 fL (8.7-11.7); NRBC-AUTO% 0.3 % (0.0-0.2); PLATELET CLUMPS FLAG 30 (0-99); PLATELET COUNT 88 10^3/uL (150-400); RED BLOOD CELL COUNT 3.78 10^6/uL (4.40-6.38); RED CELL DISTRIBUTION WIDTH 19.9 % (11.5-15.2)
[2016-10-10 17:06] LABS: ANION GAP 13 mEq/L (8-16); CALCIUM 8.2 mg/dL (8.5-10.4); CARBON DIOXIDE 23 mEq/l (22-31); CHLORIDE 102 mEq/L (97-110); CREATININE 0.5 mg/dL (0.7-1.3); GLOMERULAR FILTRATION RATE > 60; GLUCOSE 166 mg/dL (70-100); POTASSIUM 3.8 mEq/L (3.5-5.2); SODIUM 138 mEq/L (134-144)
[2016-10-10] MEDS ORDERED: chlordiazePOXIDE 25 MG CAP PO ONE (18:08)
[2016-10-10] MEDS ORDERED: LORazepam 2 MG/ML INJ IVP PRN (19:42)
[2016-10-10] MEDS ORDERED: ACETAMINOPHEN 325 MG TAB PO PRN (19:42)
[2016-10-10] MEDS ORDERED: ONDANSETRON DISINTEGRATING 4 MG TAB PO PRN (19:42)
[2016-10-10] MEDS ORDERED: ONDANSETRON 4 MG/2 ML VIAL IVP PRN (19:42)
[2016-10-10] MEDS ORDERED: D50W 25 GM/50 ML SYR IVP PRN (19:48)
[2016-10-10 20:33] LABS: ALANINE AMINOTRANSFERASE 88 IU/L (21-72); ALBUMIN 3.5 g/dL (3.5-5.0); ALKALINE PHOSPHATASE 225 IU/L (38-126); ASPARTATE AMINOTRANSFERASE 218 IU/L (17-59); BILIRUBIN,TOTAL 1.6 mg/dL (0.1-1.4); BILIRUBIN-CONJUGATED 0.6 mg/dL (0.0-0.5); ETHANOL SERUM 235 mg/dL (0-10); TOTAL PROTEIN 6.2 g/dL (6.3-8.2)
--- NOTE | 2016-10-10 20:48 | PDGENHP ---
History and Physical - Chief Complaint tremors, alcohol withdrawal - History of Present Illness 51 yo male with h/o alcohol abuse and frequent ED visits with acute alcohol intoxication presented to ED this morning after being found down with altered mentation. He was found to have severe alcohol intoxication. The plan was to transfer him to the [facility], but the pt refused. He left the ED and suffered a mechanical fall, injuring his hip and neck. He returned to the ED, imaging was negative, but he then developed acute withdrawal symptoms and is admitted for further management. He reports his last drink was this morning. He denies N/V/D or abdominal pain. No fevers/chills, CP or SOB. He states he drinks 750 mL bottle of vodka daily , but shares some of it. He endorses a h/o withdrawal seizures, last seizure reportedly a month ago. He complains of LE pain due to neuropathy. He has not been checking his bg's or taking his insulin due to homelessness. History Information - Allergies/Home Medication List Allergies/Adverse Reactions: No Allergies [NKDA] Allergy (Verified 10/10/16 15:24) MILK THISTEL Allergy (Uncoded 08/08/16 17:09) Home Medications: Insulin Detemir [Levemir Flextouch] 14 unit SQ DAILY 08/04/16 [Last Taken Unknown] Insulin Lispro [Humalog Kwikpen U-100] 10 unit SQ TIDMEAL 08/04/16 [Last Taken Unknown] I have personally reviewed and updated: family history, medical history, social history, surgical history - Past Medical History Additional medical history: alcohol abuse, withdrawal, IDDM, peripheral neuropathy - Surgical History Reports: no pertinent surgical hx - Family History Positive for: non-pertinent - Social History Smoking Status: Current every day smoker Alcohol Use: Heavy Additional social history: Pt is homeless, last drink this am. Review of Systems ROS: 10pt was reviewed & negative except for what was stated in HPI & below Physical Exam Temp Pulse Resp BP Pulse Ox 36.8 C 107 H 18 132/80 H 98 10/10/16 19:48 10/10/16 19:48 10/10/16 19:48 10/10/16 19:48 10/10/16 19:48 O2 (L/minute) 2 Constitutional: no apparent distress Eyes: PERRL, icteric sclera Ears, Nose, Mouth, Throat: moist mucous membranes Cardiovascular: regular rate and rhythym, no murmur, rub, or gallop Respiratory: no respiratory distress, clear to auscultation Gastrointestinal: normoactive bowel sounds, other (soft, nd, mild TTP without r/ r/g, +BS) Skin: warm Musculoskeletal: full muscle strength, other (decreased sensation of toes b/l) Neurologic: AAOx3 Psychiatric: interacting appropriately Lab Data & Imaging Review 10/10/16 16:00 10/10/16 16:45 WBC 5.81 10^3/uL (3.80-9.50) 10/10/16 16:00 RBC 3.78 10^6/uL (4.40-6.38) L 10/10/16 16:00 Hgb 11.7 g/dL (13.7-17.5) L 10/10/16 16:00 Hct 34.1 % (40.0-51.0) L 10/10/16 16:00 MCV 90.2 fL (81.5-99.8) 10/10/16 16:00 MCH 31.0 pg (27.9-34.1) 10/10/16 16:00 MCHC 34.3 g/dL (32.4-36.7) 10/10/16 16:00 RDW 19.9 % (11.5-15.2) H 10/10/16 16:00 Plt Count 88 10^3/uL (150-400) L 10/10/16 16:00 MPV 9.4 fL (8.7-11.7) 10/10/16 16:00 Neut % (Auto) 79.0 % (39.3-74.2) H 10/10/16 16:00 Lymph % (Auto) 14.8 % (15.0-45.0) L 10/10/16 16:00 [place] % (Auto) 5.3 % (4.5-13.0) 10/10/16 16:00 Eos % (Auto) 0.3 % (0.6-7.6) L 10/10/16 16:00 Baso % (Auto) 0.3 % (0.3-1.7) 10/10/16 16:00 Nucleat RBC Rel Count 0.3 % (0.0-0.2) H 10/10/16 16:00 Absolute Neuts (auto) 4.58 10^3/uL (1.70-6.50) 10/10/16 16:00 Absolute Lymphs (auto) 0.86 10^3/uL (1.00-3.00) L 10/10/16 16:00 Absolute Monos (auto) 0.31 10^3/uL (0.30-0.80) 10/10/16 16:00 Absolute Eos (auto) 0.02 10^3/uL (0.03-0.40) L 10/10/16 16:00 Absolute Basos (auto) 0.02 10^3/uL (0.02-0.10) 10/10/16 16:00 Absolute Nucleated RBC 0.02 10^3/uL (0-0.01) H 10/10/16 16:00 Immature Gran % 0.3 % (0.0-1.1) 10/10/16 16:00 Immature Gran # 0.02 10^3/uL (0.00-0.10) 10/10/16 16:00 Turbidity REJ 10/10/16 16:00 Sodium 138 mEq/L (134-144) 10/10/16 16:45 Potassium 3.8 mEq/L (3.5-5.2) 10/10/16 16:45 Chloride 102 mEq/L (97-110) 10/10/16 16:45 Carbon Dioxide 23 mEq/l (22-31) 10/10/16 16:45 Anion Gap 13 mEq/L (8-16) 10/10/16 16:45 BUN 12 mg/dL (7-23) 10/10/16 16:45 Creatinine 0.5 mg/dL (0.7-1.3) L 10/10/16 16:45 Estimated GFR > 60 10/10/16 16:45 Glucose 166 mg/dL (70-100) H 10/10/16 16:45 Calcium 8.2 mg/dL (8.5-10.4) L 10/10/16 16:45 Total Bilirubin 1.6 mg/dL (0.1-1.4) H 10/10/16 16:45 Conjugated Bilirubin 0.6 mg/dL (0.0-0.5) H 10/10/16 16:45 Unconjugated Bilirubin 1.0 mg/dL (0.0-1.1) 10/10/16 16:45 AST 218 IU/L (17-59) H 10/10/16 16:45 ALT 88 IU/L (21-72) H 10/10/16 16:45 Alkaline Phosphatase 225 IU/L (38-126) H 10/10/16 16:45 Total Protein 6.2 g/dL (6.3-8.2) L 10/10/16 16:45 Albumin 3.5 g/dL (3.5-5.0) 10/10/16 16:45 Specimen Hemolysis REJ 10/10/16 16:00 Ethyl Alcohol 235 mg/dL (0-10) H 10/10/16 16:45 Assessment & Plan Assessment: Alcohol dependence in active withdrawal despite a BAL of 235. His last drink was this morning. Plan for CIWA protocol, symptom triggered bzd dosing, thiamine, vits, folic acid. CM consult. Alcoholic hepatitis - AST/ALT ratio consistent with etoh etiology of transaminitis. However, will check acute hepatitis panel. Supportive care with IVF's, trend LFTs. Consider u/s if LFT's worsening or increased pain. Anemia and Thrombocytopenia - likely suppression due to etoh. No e/o bleeding. Follow. Insulin dependent DM - last a1c was 16 in 11/2013, bg on arrival is 166. Will check a1c. Med rec not completed, will give Lantus 10 u qhs with SSI and adjust as indicated after med rec completed. Peripheral neuropathy - start low dose Gabapentin Mechanical fall with Cervical strain and Contusion of right hip - Head and neck CT negative, hip xray negative. Will request PT/OT evals for tomorrow. Homelessness - CM consult requested DVT PPLX - Lovenox contraindicated with low plts, will place SCD's. Consider addition of Lovenox if plts improve and pt has prolonged hospitalization. Full code Dispo - inpt as pt will likely require >48 hrs hospitalization for alcohol w/d and acute alcoholic hepatitis.
[2016-10-10] MEDS: INSULIN GLARGINE 100 UNITS/ML SYRINGE SC SCH (21:30)
[2016-10-10] MEDS: GABAPENTIN 300 MG CAP PO SCH (21:30)
[2016-10-10] MEDS: FAMOTIDINE 20 MG TAB PO SCH (21:30)
[2016-10-10 21:44] LABS: HEMOGLOBIN A1C 9.4 % (4.0-6.0)
[2016-10-10 22:11] LABS: PHENCYCLIDINE URINE BCH < 6 ng/ml (NEGATIVE); PHENCYCLIDINE URINE BCH NEGATIVE (NEGATIVE); TETRAHYDROCANNABINOL URINE 32 ng/mL (NEGATIVE); TETRAHYDROCANNABINOL URINE NEGATIVE (NEGATIVE)
[2016-10-10] MEDS: LORazepam 1 MG TAB PO PRN (22:26)
[2016-10-10] MEDS: NS 1,000 ML IV SCH (22:29)
[2016-10-11 05:11] LABS: % IMMATURE GRANULYOCYTES 0.6 % (0.0-1.1); ABSOLUTE IMMATURE GRANULOCYTES 0.03 10^3/uL (0.00-0.10); ABSOLUTE NRBC COUNT 0.02 10^3/uL (0-0.01); ADD DIFF? NO; ADD MORPH? NO; ADD SCAN? NO; ATYPICAL LYMPHOCYTE FLAG 0 (0-99); FRAGMENT RBC FLAG 0 (0-99); HEMATOCRIT 29.4 % (40.0-51.0); HEMOGLOBIN 10.2 g/dL (13.7-17.5); LEFT SHIFT FLG 0 (0-99); LIPEMIA HEMOLYSIS FLAG 90 (0-99); MEAN CELL HEMOGLOBIN 31.1 pg (27.9-34.1); MEAN CELL HEMOGLOBIN CONCENTR. 34.7 g/dL (32.4-36.7); MEAN CELL VOLUME 89.6 fL (81.5-99.8); MEAN PLATELET VOLUME 10.7 fL (8.7-11.7); NRBC-AUTO% 0.4 % (0.0-0.2); PLATELET CLUMPS FLAG 0 (0-99); PLATELET COUNT 80 10^3/uL (150-400); RED BLOOD CELL COUNT 3.28 10^6/uL (4.40-6.38); RED CELL DISTRIBUTION WIDTH 19.4 % (11.5-15.2)
[2016-10-11 05:29] LABS: ALANINE AMINOTRANSFERASE 86 IU/L (21-72); ALBUMIN 3.2 g/dL (3.5-5.0); ALKALINE PHOSPHATASE 278 IU/L (38-126); ANION GAP 10 mEq/L (8-16); ASPARTATE AMINOTRANSFERASE 211 IU/L (17-59); BILIRUBIN,TOTAL 2.3 mg/dL (0.1-1.4); CALCIUM 8.4 mg/dL (8.5-10.4); CARBON DIOXIDE 24 mEq/l (22-31); CHLORIDE 100 mEq/L (97-110); CREATININE 0.6 mg/dL (0.7-1.3); GLOMERULAR FILTRATION RATE > 60; GLUCOSE 62 mg/dL (70-100); MAGNESIUM 1.1 mg/dL (1.6-2.3); POTASSIUM 3.4 mEq/L (3.5-5.2); SODIUM 134 mEq/L (134-144); TOTAL PROTEIN 5.9 g/dL (6.3-8.2)
[2016-10-11 05:37] LABS: BILIRUBIN-CONJUGATED 0.4 mg/dL (0.0-0.5); BILIRUBIN-UNCONJUGATED 1.9 mg/dL (0.0-1.1)
[2016-10-11] MEDS: NS 1,000 ML IV SCH (06:22)
[2016-10-11] MEDS ORDERED: FOLIC ACID 1 MG TAB PO SCH (09:00)
[2016-10-11] MEDS: INSULIN LISPRO 100 UNIT/ML SC SCH ×3 (09:03→18:10)
[2016-10-11] MEDS: MULTIVITAMINS 1 EACH TAB PO SCH (09:08)
[2016-10-11] MEDS: GABAPENTIN 300 MG CAP PO SCH ×2 (09:08→20:05)
[2016-10-11] MEDS: FAMOTIDINE 20 MG TAB PO SCH ×2 (09:08→20:05)
[2016-10-11] MEDS: LORazepam 1 MG TAB PO PRN ×4 (09:16→20:05)
[2016-10-11] MEDS ORDERED: ACETAMINOPHEN 325 MG TAB PO PRN (10:08)
--- NOTE | 2016-10-11 10:08 | HOSPPROG ---
Hospitalist Progress Note Assessment/Plan: Patient is a 51-year-old male who presented to the emergency room with acute alcohol intoxication. The plan was to [facility] to [facility] but the patient declined. He left the emergency room and suffered a mechanical fall injuring his hip in neck. He returned to the ER. The imaging was noted to be negative. But he developed acute withdrawal symptoms. Today is my 1st encounter with the patient. Chart reviewed. * Acute alcohol intoxication and withdrawal called by nursing staff because patient CIWA is increasing patient does not want to stop drinking drinks 750 mils of vodka a day will order vodka three times daily * gait instability with fall reviewed radiologic data CT of head and neck/ nothing acute hip xray stable reviewed his care with PT and OT who noted he needed a walker to ambulate gait still unsteady *Hypokalemia electrolyte protocol *thrombocytopenia due to the above *Nicotine dep patch *alcohol hepatitis *DM2 A1c is 9.4 with average glucose of 223 *anemia *peripheral neuropathy gabapentin *homelessness *Plan: will evaluate again in the a.m. to see if he is stable enough with his gait for dc Subjective: Von said he has pain in his feet, does not want to stop drinking. Objective: Vital Signs Temp Pulse Resp BP Pulse Ox 36.6 C 87 14 122/84 H 95 10/11/16 07:39 10/11/16 07:39 10/11/16 07:39 10/11/16 07:39 10/11/16 07:39 Laboratory Results 10/11/16 04:35 10/11/16 04:35 10/10/16 10/11/16 10/12/16 05:59 05:59 05:59 Intake Total 3100 Output Total 500 Balance 2600 - Physical Exam Constitutional: chronically ill appearing, other (thin) Eyes: PERRL Ears, Nose, Mouth, Throat: hearing normal Cardiovascular: regular rate and rhythym, No tachycardia Respiratory: no respiratory distress Skin: warm Musculoskeletal: generalized weakness Neurologic: AAOx3 Psychiatric: interacting appropriately, not anxious ICD10 Worksheet Patient Problems: Problems Problem Status Onset Alcohol withdrawal Acute Cervical strain, acute Acute Contusion of right hip Acute Alcohol intoxication Acute Altered mental status Acute
[2016-10-11] MEDS: VODKA 50 ML BOTTLE PO SCH ×3 (10:21→22:16)
[2016-10-11] MEDS: INSULIN GLARGINE 100 UNITS/ML SYRINGE SC SCH (20:06)
[2016-10-11] MEDS ORDERED: LORazepam 1 MG TAB PO PRN (20:37)
[2016-10-12 05:18] LABS: % IMMATURE GRANULYOCYTES 0.7 % (0.0-1.1); ABSOLUTE IMMATURE GRANULOCYTES 0.04 10^3/uL (0.00-0.10); ABSOLUTE NRBC COUNT 0.03 10^3/uL (0-0.01); ADD DIFF? NO; ADD MORPH? NO; ADD SCAN? NO; ATYPICAL LYMPHOCYTE FLAG 0 (0-99); FRAGMENT RBC FLAG 0 (0-99); HEMATOCRIT 31.1 % (40.0-51.0); HEMOGLOBIN 10.5 g/dL (13.7-17.5); LEFT SHIFT FLG 0 (0-99); LIPEMIA HEMOLYSIS FLAG 90 (0-99); MEAN CELL HEMOGLOBIN 30.5 pg (27.9-34.1); MEAN CELL HEMOGLOBIN CONCENTR. 33.8 g/dL (32.4-36.7); MEAN CELL VOLUME 90.4 fL (81.5-99.8); MEAN PLATELET VOLUME 10.3 fL (8.7-11.7); NRBC-AUTO% 0.5 % (0.0-0.2); PLATELET CLUMPS FLAG 0 (0-99); PLATELET COUNT 88 10^3/uL (150-400); RED BLOOD CELL COUNT 3.44 10^6/uL (4.40-6.38); RED CELL DISTRIBUTION WIDTH 19.6 % (11.5-15.2)
[2016-10-12 05:39] LABS: MAGNESIUM 1.3 mg/dL (1.6-2.3)
[2016-10-12] MEDS: INSULIN LISPRO 100 UNIT/ML SC SCH ×2 (07:37→12:31)
[2016-10-12] MEDS ORDERED: LISINOPRIL 20 MG TAB PO SCH (09:00)
[2016-10-12] MEDS ORDERED: FOLIC ACID 1 MG TAB PO SCH (09:00)
[2016-10-12] MEDS: VODKA 50 ML BOTTLE PO SCH (09:00)
[2016-10-12] MEDS: GABAPENTIN 300 MG CAP PO SCH (09:01)
[2016-10-12] MEDS: FAMOTIDINE 20 MG TAB PO SCH (09:01)
[2016-10-12] MEDS: MULTIVITAMINS 1 EACH TAB PO SCH (09:01)
[2016-10-12 12:13] VITALS: BP 119/83; PULSE 115; RESP 16; TEMP 98.5; O2SAT 93
--- NOTE | 2016-10-12 12:22 | HOSPPROG ---
Hospitalist Progress Note Assessment/Plan: Patient is a 51-year-old male who presented to the emergency room with acute alcohol intoxication. The plan was to transfer to the [facility] but the patient declined. He left the emergency room and suffered a mechanical fall injuring his hip in neck. He returned to the ER. The imaging was noted to be negative. But he developed acute withdrawal symptoms. * Acute alcohol intoxication and withdrawal encouraged him to go to the [facility]/he doesn't want to patient does not want to stop drinking drinks 750 mils of vodka a day will order vodka three times daily * gait instability with fall reviewed radiologic data CT of head and neck/ nothing acute hip xray stable gait much improved today *Hypokalemia electrolyte protocol *thrombocytopenia due to the above *Nicotine dep patch *alcohol hepatitis hepatitis panel is negative *DM2 A1c is 9.4 with average glucose of 223 offered him insulin/ doesn't want it *anemia *peripheral neuropathy gabapentin *homelessness CM to look nto arranging a correction bed, but doubtful he will go there *Plan: dc Subjective: Von wants to leave now. No complaints. Objective: Vital Signs Temp Pulse Resp BP Pulse Ox 36.9 C 115 H 16 119/83 H 93 10/12/16 12:00 10/12/16 12:00 10/12/16 12:00 10/12/16 12:00 10/12/16 12:00 Laboratory Results 10/12/16 04:32 10/11/16 04:35 10/11/16 10/12/16 10/13/16 05:59 05:59 05:59 Intake Total 3100 1300 Output Total 500 2200 Balance 2600 -900 - Physical Exam Constitutional: appears nourished, chronically ill appearing Eyes: scleral injection Ears, Nose, Mouth, Throat: hearing normal Cardiovascular: regular rate and rhythym Respiratory: no respiratory distress, reduced air movement Gastrointestinal: normoactive bowel sounds Skin: warm Musculoskeletal: generalized weakness Neurologic: AAOx3 Psychiatric: interacting appropriately, not encephalopathic ICD10 Worksheet Patient Problems: Problems Problem Status Onset Alcohol withdrawal Acute Cervical strain, acute Acute Contusion of right hip Acute Alcohol intoxication Acute Altered mental status Acute
[2016-10-12] MEDS ORDERED: VODKA 50 ML BOTTLE PO ONE (12:30)
--- NOTE | 2016-10-12 15:02 | GDS ---
[f rep st] DISCHARGE SUMMARY DISCHARGE DIAGNOSES: 1. Acute alcohol intoxication and withdrawal. 2. Gait instability with fall. 3. Hypokalemia. 4. Thrombocytopenia. 5. Nicotine dependence. 6. Alcoholic hepatitis. 7. Diabetes type 2. 8. Anemia. 9. Peripheral neuropathy. 10. Homelessness. BRIEF HISTORY: The patient is a 51-year-old male with history of alcohol abuse and frequent emergen cy department visits with acute alcohol intoxication. He initially presented to the emergency room after being found down with altered mentation. He was found to have severe alcohol intoxication. T he plan was to transfer to [facility], but he refused. He subsequently left the emergency department and s ustained a fall, complaining of pain to his hip and neck area. He returned to the ER. His imaging was noted to be negative, but he developed acute alcohol withdra wal symptoms and was admitted for further evaluation. He was admitted for further care. HOSPITAL COURSE PER PROBLEM: 1. Acute alcohol intoxication withdrawal. In speaking with the patient, he does not want to stop d rinking. He drinks 750 mL of vodka a day. His symptoms were well managed with giving him vodka 3 t imes a day. Encouraged him to go to [facility]. He wanted to be discharged back to the street. 2. Gait instability with fall. I reviewed all his radiologic data. The CT of his head and neck sh owed nothing acute. His hip x-ray was stable. He is ambulating well without difficulty. 3. Hypokalemia, on electrolyte protocol. 4. Thrombocytopenia due to alcohol use. 5. Nicotine dependence. Has a patch. 6. Alcoholic hepatitis. His hepatitis panel was negative. 7. Diabetes type 2. His hemoglobin A1c is 9.4 with an average glucose of 223. I offered him insul in, and he did not want it. 8. Anemia, stable. 9. Peripheral neuropathy. He was started on gabapentin. 10. Homelessness. [facility]. I told him they are open until November 10. [facility] was looking to see if a bed was available for him for this evening. I am doubtful that he will go there. CONDITION AT DISCHARGE: Stable. VITAL SIGNS: Blood pressure is 119/83, pulse is 115, respiratory rate of 16, temperature is 36.9 Celsius. O2 sats on room air 93%. MEDICATIONS AT DISCHARGE: Please see the EMR. DISCHARGE INSTRUCTIONS: 1. Recommend that he try to cut back a bit on his alcohol. 2. Follow up with his primary care provider, Dr. Méndez, at [facility]. Greater than 30 minutes discharging and coordinating care. /[id number]/MODL
[2016-10-13] MEDS ORDERED: THIAMINE HCL 100 MG TAB PO SCH (09:00)
== END 2016-10-12 13:00 | disposition home or self-care (01) | DRG 897 ==
LOC: F3N 19:42 → OBSVTOIN 19:42
PROVIDERS: ADMIT Hospitalist; ATTEND Hospitalist
DX: F10.229 Alcohol dependence with intoxication, unspecified (principal); F10.239 Alcohol dependence with withdrawal, unspecified; S70.01XA Contusion of right hip, initial encounter; S16.1XXA Strain of muscle, fascia and tendon at neck level, initial encounter; E87.6 Hypokalemia; D69.6 Thrombocytopenia, unspecified; F17.200 Nicotine dependence, unspecified, uncomplicated; K70.10 Alcoholic hepatitis without ascites; E11.9 Type 2 diabetes mellitus without complications; D64.9 Anemia, unspecified; G62.9 Polyneuropathy, unspecified; Y90.7 Blood alcohol level of 200-239 mg/100 ml; W19.XXXA Unspecified fall, initial encounter; Z79.4 Long term (current) use of insulin; Z59.0 Homelessness
CPT/HCPCS: 80307; 96374; 97116-GP; 97162-GP; 97165-GO; 97530-GP; G0472; G0480; J1815; J2060

== ENCOUNTER 2016-10-13 21:36 | Emergency (ER) | payer MEDICAID ==
[2016-10-13 21:45] VITALS: TEMP 98.2
[2016-10-13] MEDS ORDERED: LORazepam 2 MG/ML INJ ONE (22:24)
[2016-10-13] MEDS ORDERED: LORazepam 2 MG/ML INJ IVP ONE (22:36)
[2016-10-13] MEDS ORDERED: NS 1,000 ML IV ONE (22:36)
[2016-10-13 22:38] VITALS: RESP 16; O2SAT 96
[2016-10-13] MEDS ORDERED: IBUPROFEN 600 MG TAB PO ONE ×2 (23:10→23:36)
[2016-10-13 23:52] LABS: % IMMATURE GRANULYOCYTES 0.8 % (0.0-1.1); ABSOLUTE IMMATURE GRANULOCYTES 0.04 10^3/uL (0.00-0.10); ADD DIFF? NO; ADD MORPH? NO; ADD SCAN? NO; ATYPICAL LYMPHOCYTE FLAG 20 (0-99); FRAGMENT RBC FLAG 0 (0-99); HEMATOCRIT 27.5 % (40.0-51.0); HEMOGLOBIN 9.2 g/dL (13.7-17.5); LEFT SHIFT FLG 0 (0-99); LIPEMIA HEMOLYSIS FLAG 80 (0-99); MEAN CELL HEMOGLOBIN 30.4 pg (27.9-34.1); MEAN CELL HEMOGLOBIN CONCENTR. 33.5 g/dL (32.4-36.7); MEAN CELL VOLUME 90.8 fL (81.5-99.8); MEAN PLATELET VOLUME 9.7 fL (8.7-11.7); PLATELET CLUMPS FLAG 0 (0-99); PLATELET COUNT 131 10^3/uL (150-400); RED BLOOD CELL COUNT 3.03 10^6/uL (4.40-6.38)
[2016-10-14 00:13] LABS: ANION GAP 12 mEq/L (8-16); CALCIUM 8.5 mg/dL (8.5-10.4); CARBON DIOXIDE 21 mEq/l (22-31); CHLORIDE 102 mEq/L (97-110); CREATININE 0.7 mg/dL (0.7-1.3); ETHANOL SERUM < 10 mg/dL (0-10); GLOMERULAR FILTRATION RATE > 60; GLUCOSE 295 mg/dL (70-100); POTASSIUM 4.1 mEq/L (3.5-5.2); SODIUM 135 mEq/L (134-144)
[2016-10-14] MEDS ORDERED: chlordiazePOXIDE 25 MG CAP PO ONE (00:17)
[2016-10-14] MEDS ORDERED: LORazepam 2 MG/ML INJ IVP ONE (00:17)
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
[2016-10-14 00:39] VITALS: BP 126/89; PULSE 95
== END 2016-10-14 00:58 | disposition home or self-care (01) ==
DX: F10.239 Alcohol dependence with withdrawal, unspecified (principal); E11.9 Type 2 diabetes mellitus without complications; F17.200 Nicotine dependence, unspecified, uncomplicated; Z79.4 Long term (current) use of insulin
CPT/HCPCS: 80305; 96374; G0480; J2060

== ENCOUNTER 2016-12-15 21:05 | Emergency (ER) | payer OTHER, MEDICAID ==
--- NOTE | 2016-12-15 21:26 | EDPHY ---
H & P Time Seen by Provider: 12/15/16 21:25 HPI/ROS: Chief complaint. Hypoglycemia HPI. 51-year-old male insulin-dependent diabetic found to be lethargic with decreased responsiveness at the [place] [facility]. He had a blood glucose of 30. He was given D50. He arrives with a blood sugar 180 and is awake and alert. He thinks that he took his regular insulin dose but did not eat and off. Patient now has no complaints. He has no chest discomfort or trouble breathing. He is not ill and has not been running a fever. No vomiting or diarrhea. No abdominal pain. ROS Constitutional. Generalized weakness Eyes. no problems with vision ENT. no sore throat, no nasal drainage Cardiovascular. no chest pain Respiratory. no shortness of breath, no cough Abdominal. no abdominal pain, no nausea/vomiting, no diarrhea . no problems urinating MS. no calf pain/swelling, no neck/back pain, no joint pain Skin. no rash Lymph. no swollen glands Neuro. Decreased responsiveness Past Medical/Surgical History: Past medical history alcoholism, hypertension, insulin-dependent diabetes, closed-head injury Social History: Single, daily smoker, no alcohol Smoking Status: Current every day smoker Physical Exam: General Appearance: Alert well-developed male mild distress vital signs are stable Eyes: Pupils equal and round . Both eyes somewhat injected with yellowish exudate ENT, Mouth: Mucous membranes are moist. Respiratory: There are no retractions, lungs are clear to auscultation. Cardiovascular: Regular rate and rhythm. Gastrointestinal: Abdomen is soft and nontender, no masses, bowel sounds normal. Neurological: Awake and alert, sensory and motor exams grossly normal. Skin: Warm and dry, no rashes. Musculoskeletal: Neck is supple nontender. Extremities symmetrical, full range of motion. Psychiatric: Patient is oriented X 3, there is no agitation. Constitutional: Initial Vital Signs Temperature (C) 35.7 C L 12/15/16 21:05 Heart Rate 60 12/15/16 21:05 Respiratory Rate 18 12/15/16 21:05 Blood Pressure 116/82 H 12/15/16 21:05 O2 Sat (%) 98 12/15/16 21:05 O2 Delivery Mode Room Air Allergies/Adverse Reactions: No Allergies [NKDA] Allergy (Verified 12/15/16 21:16) MILK THISTEL Allergy (Uncoded 12/15/16 21:16) Home Medications: Medication Instructions Recorded Insulin Detemir [Levemir Flextouch] 0 unit SQ DAILY 08/04/16 Insulin Lispro [Humalog Kwikpen 0 unit SQ TIDMEAL 08/04/16 U-100] Acetaminophen [Tylenol 325mg (*)] 650 mg PO Q4HRS PRN #0 tab 08/06/16 Folic Acid [Folic Acid 1 MG (*)] 1 mg PO DAILY #0 tab 08/06/16 Multivitamins [Multivitamin (*)] 1 each PO DAILY #0 tab 08/06/16 Thiamine HCl [Vitamin B-1] 100 mg PO DAILY #0 tab 08/06/16 Medical Decision Making Procedures: IV normal saline, monitor Patient given a meal to eat. Re-evaluation 10:45 p.m. patient is stable and has no complaints ED Course/Re-evaluation: Patient and I discussed treatment plan including criteria for return importance of follow-up and further evaluation. He expresses understanding and agreement. We discussed making sure he eat adequately after taking his insulin Repeat i-STAT and glucose after eating A sandwich a is 154. Re-evaluation at 11:15 p.m.. Patient is stable and alert. We discussed laboratory evaluation, treatment plan, criteria for return, importance of follow -up further evaluation. He expresses understanding and agreement Differential Diagnosis: Hyperglycemia in a patient with insulin-dependent diabetes. He apparently took regular dose of insulin but did not eat enough. He also has bilateral conjunctivitis - Data Points Laboratory Results: Laboratory Results 12/15/16 21:15 12/15/16 21:15 12/15/16 12/15/16 12/15/16 22:49 21:15 21:15 WBC 5.85 10^3/uL 10^3/uL (3.80-9.50) RBC 3.61 10^6/uL L 10^6/uL (4.40-6.38) Hgb 11.1 g/dL L g/dL (13.7-17.5) POC Hgb 12.6 gm/dL L gm/dL (13.7-17.5) Hct 34.8 % L % (40.0-51.0) POC Hct 37 % L % (40-51) MCV 96.4 fL fL (81.5-99.8) MCH 30.7 pg pg (27.9-34.1) MCHC 31.9 g/dL L g/dL (32.4-36.7) RDW 15.0 % % (11.5-15.2) Plt Count 170 10^3/uL 10^3/uL (150-400) MPV 10.4 fL fL (8.7-11.7) Neut % (Auto) 65.0 % % (39.3-74.2) Lymph % (Auto) 16.8 % % (15.0-45.0) [place] % (Auto) 14.9 % H % (4.5-13.0) Eos % (Auto) 2.1 % % (0.6-7.6) Baso % (Auto) 0.7 % % (0.3-1.7) Nucleat RBC Rel Count 0.0 % % (0.0-0.2) Absolute Neuts (auto) 3.81 10^3/uL 10^3/uL (1.70-6.50) Absolute Lymphs (auto) 0.98 10^3/uL L 10^3/uL (1.00-3.00) Absolute Monos (auto) 0.87 10^3/uL H 10^3/uL (0.30-0.80) Absolute Eos (auto) 0.12 10^3/uL 10^3/uL (0.03-0.40) Absolute Basos (auto) 0.04 10^3/uL 10^3/uL (0.02-0.10) Absolute Nucleated RBC 0.00 10^3/uL 10^3/uL (0-0.01) Immature Gran % 0.5 % % (0.0-1.1) Immature Gran # 0.03 10^3/uL 10^3/uL (0.00-0.10) POC Sodium 144 mEq/L mEq/L (134-144) Sodium 141 mEq/L mEq/L (134-144) POC Potassium 2.9 mEq/L L mEq/L (3.3-5.0) Potassium 3.4 mEq/L L mEq/L (3.5-5.2) POC Chloride 104 mEq/L mEq/L (97-110) Chloride 103 mEq/L mEq/L (97-110) Carbon Dioxide 26 mEq/l mEq/l (22-31) Anion Gap 12 mEq/L mEq/L (8-16) POC BUN 14 mg/dL mg/dL (7-23) BUN 14 mg/dL mg/dL (7-23) Creatinine 0.8 mg/dL mg/dL (0.7-1.3) POC Creatinine 0.8 mg/dL mg/dL (0.7-1.3) Estimated GFR > 60 Glucose 65 mg/dL L mg/dL (70-100) POC Glucose 154 mg/dL H mg/dL (70-100) Calcium 10.0 mg/dL mg/dL (8.5-10.4) 12/15/16 21:08 WBC RBC Hgb POC Hgb 12.6 gm/dL L gm/dL (13.7-17.5) Hct POC Hct 37 % L % (40-51) MCV MCH MCHC RDW Plt Count MPV Neut % (Auto) Lymph % (Auto) [place] % (Auto) Eos % (Auto) Baso % (Auto) Nucleat RBC Rel Count Absolute Neuts (auto) Absolute Lymphs (auto) Absolute Monos (auto) Absolute Eos (auto) Absolute Basos (auto) Absolute Nucleated RBC Immature Gran % Immature Gran # POC Sodium 142 mEq/L mEq/L (134-144) Sodium POC Potassium 3.2 mEq/L L mEq/L (3.3-5.0) Potassium POC Chloride 100 mEq/L mEq/L (97-110) Chloride Carbon Dioxide Anion Gap POC BUN 13 mg/dL mg/dL (7-23) BUN Creatinine POC Creatinine 0.9 mg/dL mg/dL (0.7-1.3) Estimated GFR Glucose POC Glucose 194 mg/dL H mg/dL (70-100) Calcium Point of Care Test Results: 12/15/16 12/15/16 21:08 22:49 POC Sodium 142 144 POC Potassium 3.2 L 2.9 L POC Chloride 100 104 POC BUN 13 14 POC Creatinine 0.9 0.8 POC Glucose 194 H 154 H Departure - Departure Disposition: Home, Routine, Self-Care Clinical Impression: Hypoglycemia due to insulin Conjunctivitis Qualifiers: Conjunctivitis type: other mucopurulent Laterality: bilateral Qualified Code(s) : H10.023 - Other mucopurulent conjunctivitis, bilateral Condition: Good Instructions: Conjunctivitis (ED) Additional Instructions: Antibiotic eyedrops using 2 drops 4 times daily to each eye for 3 days. Eat regular meals after you take your insulin. Referrals: Patient,NotPresent [Primary Care Provider] - As per Instructions [facility] [Outside] - 2-3 days without fail
[2016-12-15 21:27] LABS: % IMMATURE GRANULYOCYTES 0.5 % (0.0-1.1); ABSOLUTE IMMATURE GRANULOCYTES 0.03 10^3/uL (0.00-0.10); ADD DIFF? NO; ADD MORPH? NO; ADD SCAN? NO; ATYPICAL LYMPHOCYTE FLAG 40 (0-99); FRAGMENT RBC FLAG 0 (0-99); HEMATOCRIT 34.8 % (40.0-51.0); HEMOGLOBIN 11.1 g/dL (13.7-17.5); LEFT SHIFT FLG 0 (0-99); LIPEMIA HEMOLYSIS FLAG 80 (0-99); MEAN CELL HEMOGLOBIN 30.7 pg (27.9-34.1); MEAN CELL HEMOGLOBIN CONCENTR. 31.9 g/dL (32.4-36.7); MEAN CELL VOLUME 96.4 fL (81.5-99.8); MEAN PLATELET VOLUME 10.4 fL (8.7-11.7); PLATELET CLUMPS FLAG 0 (0-99); PLATELET COUNT 170 10^3/uL (150-400); RED BLOOD CELL COUNT 3.61 10^6/uL (4.40-6.38)
[2016-12-15 21:36] LABS: ANION GAP 12 mEq/L (8-16); CARBON DIOXIDE 26 mEq/l (22-31); CHLORIDE 103 mEq/L (97-110); CREATININE 0.8 mg/dL (0.7-1.3); GLOMERULAR FILTRATION RATE > 60; GLUCOSE 65 mg/dL (70-100); POTASSIUM 3.4 mEq/L (3.5-5.2); SODIUM 141 mEq/L (134-144)
[2016-12-15] MEDS ORDERED: OFLOXACIN 0.3% SOLN PREPACK OPHT.BTL TAKEHOME ONE (22:49)
[2016-12-15 22:56] VITALS: RESP 16
[2016-12-15 23:56] VITALS: BP 118/70; PULSE 74; TEMP 96.8; O2SAT 94
== END 2016-12-15 23:56 | disposition home or self-care (01) ==
LOC: EDUNIT#
DX: E11.649 Type 2 diabetes mellitus with hypoglycemia without coma (principal); H10.023 Other mucopurulent conjunctivitis, bilateral; I10 Essential (primary) hypertension; F17.200 Nicotine dependence, unspecified, uncomplicated; Z79.4 Long term (current) use of insulin
CPT/HCPCS: 82947-QW

== ENCOUNTER 2016-12-18 16:37 | Emergency (ER) | payer MEDICAID, OTHER ==
[2016-12-18] MEDS ORDERED: NS 1,000 ML IV ONE (16:56)
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
[2016-12-18 17:07] LABS: ANION GAP 14 mEq/L (8-16); CALCIUM 9.5 mg/dL (8.5-10.4); CARBON DIOXIDE 22 mEq/l (22-31); CHLORIDE 106 mEq/L (97-110); CREATININE 0.7 mg/dL (0.7-1.3); GLOMERULAR FILTRATION RATE > 60; GLUCOSE 333 mg/dL (70-100); POTASSIUM 3.9 mEq/L (3.5-5.2); SODIUM 142 mEq/L (134-144)
[2016-12-18 17:11] LABS: % IMMATURE GRANULYOCYTES 0.5 % (0.0-1.1); ABSOLUTE IMMATURE GRANULOCYTES 0.02 10^3/uL (0.00-0.10); ADD DIFF? NO; ADD MORPH? NO; ADD SCAN? NO; ATYPICAL LYMPHOCYTE FLAG 50 (0-99); FRAGMENT RBC FLAG 0 (0-99); HEMATOCRIT 33.4 % (40.0-51.0); HEMOGLOBIN 10.6 g/dL (13.7-17.5); LEFT SHIFT FLG 0 (0-99); LIPEMIA HEMOLYSIS FLAG 80 (0-99); MEAN CELL HEMOGLOBIN 30.6 pg (27.9-34.1); MEAN CELL HEMOGLOBIN CONCENTR. 31.7 g/dL (32.4-36.7); MEAN CELL VOLUME 96.5 fL (81.5-99.8); PLATELET CLUMPS FLAG 10 (0-99); PLATELET COUNT 266 10^3/uL (150-400); RED BLOOD CELL COUNT 3.46 10^6/uL (4.40-6.38)
== END 2016-12-18 17:24 | disposition left against medical advice (07) ==
DX: M54.9 Dorsalgia, unspecified (principal); E11.65 Type 2 diabetes mellitus with hyperglycemia; I10 Essential (primary) hypertension; F17.200 Nicotine dependence, unspecified, uncomplicated; Z79.4 Long term (current) use of insulin

== ENCOUNTER 2017-01-09 09:22 | Emergency (ER) | payer MEDICAID ==
[2017-01-09 09:31] VITALS: TEMP 97.7
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
[2017-01-09 09:54] LABS: % IMMATURE GRANULYOCYTES 0.2 % (0.0-1.1); ABSOLUTE IMMATURE GRANULOCYTES 0.01 10^3/uL (0.00-0.10); ABSOLUTE NRBC COUNT 0.02 10^3/uL (0-0.01); ADD DIFF? NO; ADD MORPH? NO; ADD SCAN? NO; ATYPICAL LYMPHOCYTE FLAG 20 (0-99); FRAGMENT RBC FLAG 0 (0-99); HEMATOCRIT 38.7 % (40.0-51.0); HEMOGLOBIN 12.6 g/dL (13.7-17.5); LEFT SHIFT FLG 0 (0-99); LIPEMIA HEMOLYSIS FLAG 80 (0-99); MEAN CELL HEMOGLOBIN CONCENTR. 32.6 g/dL (32.4-36.7); MEAN CELL VOLUME 92.1 fL (81.5-99.8); MEAN PLATELET VOLUME 10.6 fL (8.7-11.7); NRBC-AUTO% 0.5 % (0.0-0.2); PLATELET CLUMPS FLAG 10 (0-99); PLATELET COUNT 76 10^3/uL (150-400); RED CELL DISTRIBUTION WIDTH 15.9 % (11.5-15.2)
[2017-01-09 10:07] LABS: ANION GAP 18 mEq/L (8-16); CALCIUM 8.2 mg/dL (8.5-10.4); CARBON DIOXIDE 19 mEq/l (22-31); CHLORIDE 105 mEq/L (97-110); CREATININE 0.7 mg/dL (0.7-1.3); GLOMERULAR FILTRATION RATE > 60; GLUCOSE 368 mg/dL (70-100); POTASSIUM 4.3 mEq/L (3.5-5.2); SODIUM 142 mEq/L (134-144)
[2017-01-09 10:20] LABS: ETHANOL SERUM 594 mg/dL (0-10)
[2017-01-09] MEDS ORDERED: NS 1,000 ML IV ONE (11:18)
[2017-01-09] MEDS: CHLORDIAZEPOXIDE 25MG PREPK#6 BTL TAKEHOME ONE ×2 (14:31→14:36)
[2017-01-09] MEDS ORDERED: CHLORDIAZEPOXIDE 25MG PREPK#6 BTL TAKEHOME ONE (14:31)
[2017-01-09 14:39] VITALS: BP 113/57; PULSE 78; RESP 18; O2SAT 91
== END 2017-01-09 14:38 | disposition left against medical advice (07) ==
LOC: EDUNIT#
DX: F10.920 Alcohol use, unspecified with intoxication, uncomplicated (principal); E11.65 Type 2 diabetes mellitus with hyperglycemia; I10 Essential (primary) hypertension; F17.200 Nicotine dependence, unspecified, uncomplicated; E86.9 Volume depletion, unspecified; Z79.4 Long term (current) use of insulin
CPT/HCPCS: 82947-QW; G0480

== ENCOUNTER 2017-01-20 09:24 | Inpatient (IN) | payer MEDICAID ==
[2017-01-20] MEDS ORDERED: LORazepam 2 MG/ML INJ IVP ONE ×3 (09:30→15:23)
[2017-01-20] MEDS ORDERED: NS 1,000 ML IV ONE ×2 (09:30→10:34)
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
[2017-01-20 09:47] LABS: % IMMATURE GRANULYOCYTES 0.7 % (0.0-1.1); ABSOLUTE IMMATURE GRANULOCYTES 0.02 10^3/uL (0.00-0.10); ADD DIFF? NO; ADD MORPH? NO; ADD SCAN? NO; ATYPICAL LYMPHOCYTE FLAG 0 (0-99); FRAGMENT RBC FLAG 0 (0-99); HEMATOCRIT 32.4 % (40.0-51.0); LEFT SHIFT FLG 0 (0-99); LIPEMIA HEMOLYSIS FLAG 90 (0-99); MEAN CELL HEMOGLOBIN 30.5 pg (27.9-34.1); MEAN CELL VOLUME 89.8 fL (81.5-99.8); MEAN PLATELET VOLUME 10.6 fL (8.7-11.7); PLATELET CLUMPS FLAG 10 (0-99); PLATELET COUNT 67 10^3/uL (150-400); RED BLOOD CELL COUNT 3.61 10^6/uL (4.40-6.38); RED CELL DISTRIBUTION WIDTH 17.4 % (11.5-15.2)
[2017-01-20] MEDS ORDERED: CHLORDIAZEPOXIDE 25MG PREPK#6 BTL TAKEHOME ONE (10:00)
[2017-01-20 10:03] LABS: ANION GAP 15 mEq/L (8-16); CALCIUM 8.3 mg/dL (8.5-10.4); CARBON DIOXIDE 21 mEq/l (22-31); CHLORIDE 99 mEq/L (97-110); CREATININE 0.7 mg/dL (0.7-1.3); GLOMERULAR FILTRATION RATE > 60; GLUCOSE 197 mg/dL (70-100); POTASSIUM 4.2 mEq/L (3.5-5.2); SODIUM 135 mEq/L (134-144)
[2017-01-20] MEDS ORDERED: ONDANSETRON 4 MG/2 ML VIAL IVP PRN (15:07)
[2017-01-20] MEDS ORDERED: ONDANSETRON DISINTEGRATING 4 MG TAB PO PRN (15:07)
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
[2017-01-20] MEDS ORDERED: NON-FORMULARY NEW DRUG (Insulin Aspart [Novolog] 5 UNIT) SQ SCH (18:00)
[2017-01-20] MEDS ORDERED: CREON PO SCH (18:00)
[2017-01-20] MEDS: NICOTINE 21 MG/24 HR PATCH TD SCH (18:20)
[2017-01-20] MEDS: NS 1,000 ML IV SCH (18:20)
[2017-01-20] MEDS: IBUPROFEN 200 MG TAB PO PRN (18:42)
[2017-01-20] MEDS: LORazepam 2 MG/ML INJ IVP PRN (18:52)
[2017-01-20] MEDS: INSULIN LISPRO 100 UNIT/ML SC SCH (19:42)
[2017-01-20] MEDS ORDERED: GABAPENTIN 300 MG CAP PO SCH (21:00)
[2017-01-21] MEDS: LORazepam 1 MG TAB PO PRN ×4 (03:58→20:57)
[2017-01-21] MEDS: IBUPROFEN 200 MG TAB PO PRN ×3 (03:58→20:57)
[2017-01-21 04:25] LABS: % IMMATURE GRANULYOCYTES 0.6 % (0.0-1.1); ABSOLUTE IMMATURE GRANULOCYTES 0.03 10^3/uL (0.00-0.10); ADD DIFF? NO; ADD MORPH? NO; ADD SCAN? NO; ATYPICAL LYMPHOCYTE FLAG 0 (0-99); FRAGMENT RBC FLAG 0 (0-99); HEMATOCRIT 32.5 % (40.0-51.0); LEFT SHIFT FLG 0 (0-99); LIPEMIA HEMOLYSIS FLAG 90 (0-99); MEAN CELL HEMOGLOBIN 30.8 pg (27.9-34.1); MEAN CELL HEMOGLOBIN CONCENTR. 33.8 g/dL (32.4-36.7); MEAN PLATELET VOLUME 11.5 fL (8.7-11.7); PLATELET CLUMPS FLAG 0 (0-99); PLATELET COUNT 70 10^3/uL (150-400); RED BLOOD CELL COUNT 3.57 10^6/uL (4.40-6.38); RED CELL DISTRIBUTION WIDTH 18.1 % (11.5-15.2)
[2017-01-21 04:34] LABS: INR 1.05 (0.83-1.16); PROTIME(PATIENT) 13.6 SEC (12.0-15.0)
[2017-01-21 05:20] LABS: ALANINE AMINOTRANSFERASE 177 IU/L (21-72); ALBUMIN 3.4 g/dL (3.5-5.0); ALKALINE PHOSPHATASE 221 IU/L (38-126); ANION GAP 12 mEq/L (8-16); ASPARTATE AMINOTRANSFERASE 591 IU/L (17-59); BILIRUBIN,TOTAL 4.4 mg/dL (0.1-1.4); CALCIUM 8.3 mg/dL (8.5-10.4); CARBON DIOXIDE 23 mEq/l (22-31); CHLORIDE 104 mEq/L (97-110); CREATININE 0.8 mg/dL (0.7-1.3); GLOMERULAR FILTRATION RATE > 60; GLUCOSE 80 mg/dL (70-100); MAGNESIUM 1.1 mg/dL (1.6-2.3); POTASSIUM 3.7 mEq/L (3.5-5.2); SODIUM 139 mEq/L (134-144); TOTAL PROTEIN 6.3 g/dL (6.3-8.2)
[2017-01-21 05:52] LABS: BILIRUBIN-CONJUGATED 1.1 mg/dL (0.0-0.5); BILIRUBIN-UNCONJUGATED 3.3 mg/dL (0.0-1.1)
[2017-01-21] MEDS ORDERED: PROTOCOL MAGNESIUM 1 DOSE IV PRN (06:43)
[2017-01-21] MEDS ORDERED: PROTOCOL POTASSIUM 1 DOSE MISC PRN (06:43)
[2017-01-21] MEDS ORDERED: POTASSIUM CL 10 MEQ TAB PO ONE ×3 (06:44→20:01)
[2017-01-21] MEDS: LORazepam 2 MG/ML INJ IVP PRN (06:46)
[2017-01-21] MEDS: NS 1,000 ML IV SCH (06:46)
[2017-01-21] MEDS ORDERED: MAGNESIUM SULF 2 GM/WATER 50 ML BAG IV ONE (07:20)
[2017-01-21] MEDS: NICOTINE 21 MG/24 HR PATCH TD SCH (07:29)
[2017-01-21] MEDS: CREON 12 CAP PO SCH (07:29)
[2017-01-21] MEDS: INSULIN LISPRO 100 UNIT/ML SC SCH ×3 (07:29→17:24)
[2017-01-21] MEDS ORDERED: MAGNESIUM SULF 2 GM/WATER 50 ML IV ONE (07:30)
[2017-01-21] MEDS ORDERED: INSULIN LISPRO 100 UNIT/ML SC SCH (08:00)
[2017-01-21] MEDS ORDERED: CREON PO SCH (09:00)
[2017-01-21] MEDS: GABAPENTIN 300 MG CAP PO SCH ×3 (11:05→20:57)
[2017-01-21] MEDS ORDERED: OLANZapine DISINTEGR 5 MG TAB PO PRN (11:09)
--- NOTE | 2017-01-21 15:21 | HOSPPROG ---
Hospitalist Progress Note Assessment/Plan: * Etoh withdrawal -continue CIWA - po benzos -IV thiamine * Query undiagnosed schizophrenia -patient hears voices - drinks Etoh to suppress -po zyprexa -consider inpatient MD psych consult when more stable * Increased LFT - due to Etoh -check abd US * DM - insulin dependent -has been on long-acting insulin in past -start Lantus 10 units qhs * Peripheral neuropathy -gabapentin * Chronic pancreatitis -Creon * Pancytopenia - due to Etoh * Congenital short acetabulum with hip pain -PT/OT -outpatient ortho consult * Homeless Subjective: Hearing voices now Objective: Vital Signs Temp Pulse Resp BP Pulse Ox 36.9 C 98 17 139/90 H 100 01/21/17 11:40 01/21/17 11:40 01/21/17 11:40 01/21/17 11:40 01/21/17 11:40 Laboratory Results 01/21/17 04:10 01/21/17 04:10 01/20/17 01/21/17 01/22/17 05:59 05:59 05:59 Intake Total 3600 Output Total 1350 Balance 2250 PT 13.6 SEC (12.0-15.0) 01/21/17 04:10 INR 1.05 (0.83-1.16) 01/21/17 04:10 Pelvis xray- congenital short acetabulum case d/w Dr. Bennett ICU rounds - stable for med surg - Physical Exam Constitutional: no apparent distress, appears nourished, not in pain Cardiovascular: regular rate and rhythym, no murmur, rub, or gallop Respiratory: no respiratory distress, no rales or rhonchi, clear to auscultation Gastrointestinal: normoactive bowel sounds, soft, non-tender abdomen, no palpable masses Skin: no rashes or abrasions, no fluctuance, no induration Neurologic: AAOx3, sensation intact bilaterally, other (tremor) Psychiatric: interacting appropriately, not anxious, not encephalopathic, thought process linear ICD10 Worksheet Patient Problems: Problems Problem Status Onset Alcohol withdrawal Acute Leg weakness, bilateral Acute Alcohol intoxication Acute Alcohol intoxication Acute Altered mental status Acute Cervical strain, acute Acute Contusion of right hip Acute Hyperglycemia Acute
[2017-01-21] MEDS ORDERED: D50W 25 GM/50 ML SYR IVP PRN (15:27)
[2017-01-21] MEDS: CREON 24 CAP PO SCH (17:27)
[2017-01-21 18:11] LABS: GLUCOSE 180 mg/dL (70-100); POTASSIUM 3.4 mEq/L (3.5-5.2)
--- NOTE | 2017-01-21 20:04 | GCON ---
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 HISTORY OF PRESENT ILLNESS: The patient is an extremely pleasant 51-year-old white male with a past medical history including schizophrenia, alcoholism, diabetes, peripheral neuropathy. He was trans ferred from [facility] today for significant tremors and he was subsequently admitted. Apparently, he has been taking gabapentin for his neuropathy; this was stolen. He had not had a drink in approximately 3 days. He apparently has long-standing history of schizophrenia and drinks to stop the voices in his head. In discussion with the patient, he states overall he is doing quite well. He does admit to pain from his neuropathy but denies any cough or productive sputum. There is no shortness of kaity ath, fever, or night sweats. He is awake and alert, and oriented x3. He has minimal tremors at thi s time. PAST MEDICAL HISTORY: Again, significant for alcoholism, insulin-dependent diabetes, peripheral maria ines ropathy as well as possible schizophrenia. ALLERGIES: No known allergies to medications. SOCIAL HISTORY: He is a daily smoker. Alcohol he drinks heavy. He is homeless but he has an advoc ate of the court with him currently. MEDICATIONS: At home include insulin, Neurontin. PHYSICAL EXAM: VITAL SIGNS: Blood pressure is 140/87, pulse 87, respirations 23, temperature 37.1, oxygen saturation 93% on room air. GENERAL: He is a well-developed, elderly white matter well-dev eloped 51-year-old white male who is currently resting comfortably in moderate pain. HEENT: Eyes P ERL EOMI. Throat shows no erythema or tonsillar hypertrophy. NECK: Supple. No cervical adenopath y. HEART: Regular rate and rhythm without murmurs, rubs, gallops. LUNGS: Clear to auscultation w ithout wheeze or rhonchi. ABDOMEN: Soft, nontender. Bowel sounds are present in all 4 quadrants. EXTREMITIES: No clubbing, cyanosis, or edema. He does have mild tremor. LABORATORY DATA: White count 5.1, hemoglobin of 11, hematocrit 32, platelet count is 70. INR is 1. 05. Sodium 139, potassium 3.9, chloride 104, CO2 is 23, BUN 6, creatinine 0.8, glucose is 80. AST is elevated at 591. ALT 177. IMPRESSION: 1. Alcoholism. 2. Alcohol withdrawals. 3. Schizophrenia by history. 4. Severe peripheral neuropathy. 5. Insulin-dependent diabetes. RECOMMENDATIONS: 1. Agree with current CIWA protocol. The patient not on Precedex at this time. 2. Adequate pain control. Will increase his Neurontin to t.i.d. 3. Aggressive blood sugar control. 4. DVT and PE prophylaxis. 5. Stress ulcer prophylaxis. 6. PT and OT. 7. Adequate nutrition. /[id number]/MODL
[2017-01-21] MEDS: INSULIN GLARGINE 100 UNITS/ML SYRINGE SC SCH (20:57)
[2017-01-22] MEDS: LORazepam 1 MG TAB PO PRN ×4 (03:11→18:48)
[2017-01-22] MEDS: IBUPROFEN 200 MG TAB PO PRN ×2 (03:11→18:13)
[2017-01-22 03:36] LABS: % IMMATURE GRANULYOCYTES 0.3 % (0.0-1.1); ABSOLUTE IMMATURE GRANULOCYTES 0.02 10^3/uL (0.00-0.10); ADD DIFF? NO; ADD MORPH? NO; ADD SCAN? NO; ATYPICAL LYMPHOCYTE FLAG 0 (0-99); FRAGMENT RBC FLAG 0 (0-99); HEMATOCRIT 33.8 % (40.0-51.0); HEMOGLOBIN 11.4 g/dL (13.7-17.5); LEFT SHIFT FLG 0 (0-99); LIPEMIA HEMOLYSIS FLAG 80 (0-99); MEAN CELL HEMOGLOBIN 31.1 pg (27.9-34.1); MEAN CELL HEMOGLOBIN CONCENTR. 33.7 g/dL (32.4-36.7); MEAN CELL VOLUME 92.1 fL (81.5-99.8); MEAN PLATELET VOLUME 11.4 fL (8.7-11.7); PLATELET CLUMPS FLAG 0 (0-99); PLATELET COUNT 74 10^3/uL (150-400); RED BLOOD CELL COUNT 3.67 10^6/uL (4.40-6.38); RED CELL DISTRIBUTION WIDTH 18.4 % (11.5-15.2)
[2017-01-22 04:10] LABS: ALANINE AMINOTRANSFERASE 143 IU/L (21-72); ALBUMIN 3.5 g/dL (3.5-5.0); ALKALINE PHOSPHATASE 226 IU/L (38-126); ANION GAP 11 mEq/L (8-16); ASPARTATE AMINOTRANSFERASE 359 IU/L (17-59); BILIRUBIN,TOTAL 3.5 mg/dL (0.1-1.4); BILIRUBIN-CONJUGATED 0.8 mg/dL (0.0-0.5); BILIRUBIN-UNCONJUGATED 2.7 mg/dL (0.0-1.1); CALCIUM 8.9 mg/dL (8.5-10.4); CARBON DIOXIDE 19 mEq/l (22-31); CHLORIDE 102 mEq/L (97-110); CREATININE 0.8 mg/dL (0.7-1.3); GLOMERULAR FILTRATION RATE > 60; GLUCOSE 261 mg/dL (70-100); MAGNESIUM 1.6 mg/dL (1.6-2.3); POTASSIUM 4.1 mEq/L (3.5-5.2); SODIUM 132 mEq/L (134-144); TOTAL PROTEIN 6.5 g/dL (6.3-8.2)
[2017-01-22] MEDS ORDERED: MAGNESIUM SULF 1 GM/DEXTROSE 100 ML IV ONE (05:03)
[2017-01-22] MEDS: GABAPENTIN 300 MG CAP PO SCH ×3 (05:54→21:01)
[2017-01-22] MEDS: CREON 24 CAP PO SCH ×3 (09:07→18:49)
[2017-01-22] MEDS: NICOTINE 21 MG/24 HR PATCH TD SCH (09:07)
[2017-01-22] MEDS: CREON 12 CAP PO SCH (09:07)
[2017-01-22] MEDS: INSULIN LISPRO 100 UNIT/ML SC SCH ×3 (09:08→18:22)
[2017-01-22] MEDS: LORazepam 2 MG/ML INJ IVP PRN ×2 (09:47→23:37)
--- NOTE | 2017-01-22 16:10 | HOSPPROG ---
Hospitalist Progress Note Assessment/Plan: * Etoh withdrawal -continue CIWA - po benzos -IV thiamine * Query undiagnosed schizophrenia -patient hears voices - drinks Etoh to suppress -po zyprexa - worsened hallucinations -consult psych - MD consult * Etoh hepatitis -follow LFT * DM - insulin dependent, uncontrolled/non-compliant -has been on long-acting insulin in past -start Lantus 10 units qhs * Peripheral neuropathy -gabapentin * Chronic pancreatitis -Creon * Pancytopenia - due to Etoh * Congenital short acetabulum with hip pain -PT/OT -outpatient ortho consult * Homeless Subjective: No new complaints. Zyprexa made voices worse Objective: Vital Signs Temp Pulse Resp BP Pulse Ox 36.6 C 105 H 24 H 106/74 99 01/22/17 12:00 01/22/17 12:00 01/22/17 12:00 01/22/17 12:00 01/22/17 12:00 Laboratory Results 01/22/17 03:27 01/22/17 03:27 01/21/17 01/22/17 01/23/17 05:59 05:59 05:59 Intake Total 3600 3860 Output Total 1350 3275 Balance 2250 585 PT 13.6 SEC (12.0-15.0) 01/21/17 04:10 INR 1.05 (0.83-1.16) 01/21/17 04:10 - Physical Exam Constitutional: no apparent distress, appears nourished, not in pain Cardiovascular: regular rate and rhythym, no murmur, rub, or gallop Respiratory: no respiratory distress, no rales or rhonchi, clear to auscultation Gastrointestinal: normoactive bowel sounds, soft, non-tender abdomen, no palpable masses Skin: no rashes or abrasions, no fluctuance, no induration Neurologic: AAOx3, sensation intact bilaterally Psychiatric: interacting appropriately, not anxious, not encephalopathic, thought process linear ICD10 Worksheet Patient Problems: Problems Problem Status Onset Alcohol withdrawal Acute Leg weakness, bilateral Acute Alcohol intoxication Acute Alcohol intoxication Acute Altered mental status Acute Cervical strain, acute Acute Contusion of right hip Acute Hyperglycemia Acute
[2017-01-22 18:12] LABS: POTASSIUM 4.7 mEq/L (3.5-5.2)
[2017-01-22 18:18] LABS: GLUCOSE 538 mg/dL (70-100)
--- NOTE | 2017-01-22 20:03 | BCON ---
[f rep st] BEHAVIORAL HEALTH CONSULTATION PSYCHIATRIC CONSULTATION PATIENT IDENTIFICATION: The patient presents as a 51-year-old white male, who is homeless, unemployed, has a severe alcohol addiction. He was admitted to the medical service on 01/20 after assessment in the [facility] ED, where he was found to be in acute alcohol withdrawal as well as experiencing lower extremity pain and weakness and was sent on to a medical bed on [address] [address] for further medical management and workup. CONSULTATIVE REQUEST: Psychiatry was asked to assess the patient for complaints of audio and visual hallucinations, a chronic recurrent problem, which is currently present; assessment to consider diagnostic options as well as dispositional planning. HISTORY OF PRESENT ILLNESS: As referenced, the patient presents with severe and advanced alcohol addiction. He has had sporadic attention for crises of his addictive use of alcohol. He has a history for withdrawal seizures. Most recently, he states, he experienced a withdrawal seizure several months ago. The patient denies any psychiatric treatment history. His history of audio and visual hallucinations, he states, began about 8 years ago, well into his history of chronic alcohol addiction. Prior to 8 years ago, he denies having any psychiatric symptoms. He states he has never had a psychiatric evaluation or received psychiatric treatment. More recently, the patient was active in his overuse of alcohol, was incarcerated overnight on 01/19 in the [facility] following a last drink during the day on 01/19. He was referred from the intermediate to the [facility] program for detoxification. On site at the [facility] program, he was found to be in active withdrawal, complaining of tremulousness, and was sent on by ambulance to the [facility] emergency room for further assessment and management of his withdrawal syndrome. In the emergency room, he was noted to be tremulous but alert and oriented x3. It is unclear if the tremulousness was visible or a subjective complaint by the patient about his internal sense of shakiness. He was given 2 mg by IV push of Ativan on 3 occasions, calmed considerably. He was also given a liter of normal saline, and the initial plan was to discharge him. However, the patient complained of lower extremity weakness and worsening of his chronic lower extremity pain secondary to congenital hip joint deformities. He therefore was sent on to a medical bed on [address] [place] [address]. Over the past 48 hours, the patient has been monitored by [facility] protocol, received medications per the protocol to resolve his withdrawal syndrome, which has improved. However, the patient has complained of the re-emergence of audio and visual hallucinations, which are occurring intermittently, per his report, while awake. He has remained calmer and cooperative with care through this current course of treatment. MENTAL STATUS EXAMINATION: On direct exam, the patient is relatively calm, alert, oriented x3. He denies having hallucinations currently. He describes his experience of hallucinations as emerging 8 years ago and happening both while drinking addictively as well as during withdrawal syndromes. He states the alcohol does diminish the intensity and frequency of the hallucinations but infrequently resolves them completely. He states they emerge with more intensity and frequency when detoxifying. He does not remember any medication intervention to help with the hallucinations. He does state that the intervention of Zydis/Zyprexa at 5 mg seemed to worsen the audio hallucinations. I note that the Zydis/Zyprexa 5 mg q.4h p.r.n. is remaining as an active order on the patient's medication regimen currently. The patient states he has been homeless x3 years, previously lived with his in their own home. He states, while , he and his are "friends," and she is aware of his problem with hallucinations. However, he states that she sometimes has experienced similar hallucinated experiences. The patient states he is willing to cooperate with another medication intervention as a trial to diminish the hallucinations. IMPRESSION: It is unlikely the patient suffers from a Schizophrenic Disorder, as he does not describe the usual history of positive and negative sx c/w with this disorder It is more likely that the circumscribed hallucinations, which have been present for 8 years intermittently, are associated with his chronic and severe alcohol addiction. The brain injury secondary to chronic exposure to alcohol may be the causal factor in creating the hallucinations, which can occur in selected alcoholics with sufficiently chronic and severe histories. 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 Its response to antipsychotic medication is variable but worth trying. RECOMMENDATIONS: I would recommend a trial of Risperdal, initially dosed at 1 mg b.i.d. as a standing trial. I would recommend discontinuation of the Zyprexa , given the report of it possibly exacerbating and not helping this problem. Further intake to formulate the case more precisely would be useful by contacting the patient's as collateral to expand the database. I will update the patient's status tomorrow and attempt to contact the patient' s in the a.m. I can be reached with any questions at [phone]. /[id number]/MODL MTDD
[2017-01-22] MEDS: INSULIN GLARGINE 100 UNITS/ML SYRINGE SC SCH (21:00)
[2017-01-22] MEDS: risperiDONE 1 MG TAB PO SCH (21:01)
[2017-01-23] MEDS: LORazepam 1 MG TAB PO PRN ×4 (04:23→16:47)
[2017-01-23 05:02] LABS: ALANINE AMINOTRANSFERASE 116 IU/L (21-72); ALBUMIN 3.6 g/dL (3.5-5.0); ALKALINE PHOSPHATASE 200 IU/L (38-126); ANION GAP 11 mEq/L (8-16); ASPARTATE AMINOTRANSFERASE 205 IU/L (17-59); BILIRUBIN,TOTAL 1.5 mg/dL (0.1-1.4); BILIRUBIN-CONJUGATED 0.4 mg/dL (0.0-0.5); BILIRUBIN-UNCONJUGATED 1.1 mg/dL (0.0-1.1); CALCIUM 9.2 mg/dL (8.5-10.4); CARBON DIOXIDE 17 mEq/l (22-31); CHLORIDE 102 mEq/L (97-110); CREATININE 0.7 mg/dL (0.7-1.3); GLOMERULAR FILTRATION RATE > 60; GLUCOSE 270 mg/dL (70-100); MAGNESIUM 1.6 mg/dL (1.6-2.3); POTASSIUM 4.5 mEq/L (3.5-5.2); SODIUM 130 mEq/L (134-144); TOTAL PROTEIN 6.3 g/dL (6.3-8.2)
[2017-01-23 05:18] LABS: % IMMATURE GRANULYOCYTES 0.5 % (0.0-1.1); ABSOLUTE IMMATURE GRANULOCYTES 0.03 10^3/uL (0.00-0.10); ADD DIFF? NO; ADD MORPH? NO; ADD SCAN? NO; ATYPICAL LYMPHOCYTE FLAG 0 (0-99); FRAGMENT RBC FLAG 0 (0-99); HEMATOCRIT 33.2 % (40.0-51.0); HEMOGLOBIN 11.3 g/dL (13.7-17.5); LEFT SHIFT FLG 0 (0-99); LIPEMIA HEMOLYSIS FLAG 90 (0-99); MEAN CELL HEMOGLOBIN 31.7 pg (27.9-34.1); MEAN CELL VOLUME 93.3 fL (81.5-99.8); MEAN PLATELET VOLUME 11.7 fL (8.7-11.7); PLATELET CLUMPS FLAG 0 (0-99); PLATELET COUNT 95 10^3/uL (150-400); RED BLOOD CELL COUNT 3.56 10^6/uL (4.40-6.38); RED CELL DISTRIBUTION WIDTH 18.6 % (11.5-15.2)
[2017-01-23] MEDS: GABAPENTIN 300 MG CAP PO SCH ×4 (08:44→20:27)
[2017-01-23] MEDS: risperiDONE 1 MG TAB PO SCH ×2 (08:45→20:27)
[2017-01-23] MEDS: CREON 24 CAP PO SCH ×4 (08:45→18:12)
[2017-01-23] MEDS: INSULIN LISPRO 100 UNIT/ML SC SCH ×3 (08:45→18:09)
[2017-01-23] MEDS: NICOTINE 21 MG/24 HR PATCH TD SCH (08:46)
[2017-01-23] MEDS: IBUPROFEN 200 MG TAB PO PRN (10:35)
[2017-01-23] MEDS: CREON 12 CAP PO SCH (10:36)
[2017-01-23] MEDS ORDERED: MAGNESIUM SULF 1 GM/DEXTROSE 100 ML IV ONE (11:50)
[2017-01-23] MEDS: chlordiazePOXIDE 25 MG CAP PO PRN ×2 (12:44→16:47)
--- NOTE | 2017-01-23 13:57 | HOSPPROG ---
Hospitalist Progress Note Assessment/Plan: 51y male with hx of ETOH and ataxia. First encounter, chart reviewed. * Etoh withdrawal -continue CIWA - po benzos, add librium -CIWA 11, cont supportive care -IV thiamine, unclear if pt was receiving this before today * Query undiagnosed schizophrenia -patient hears voices - drinks Etoh to suppress -po zyprexa - worsened hallucinations -appreciate psych - MD consult, change meds * Etoh hepatitis -follow LFT -some improvement -acute hep panel negative * DM - insulin dependent, uncontrolled/non-compliant -has been on long-acting insulin in past -start Lantus 10 units qhs -may not be best choice, noncomplaint * Peripheral neuropathy -gabapentin * Chronic pancreatitis -Creon * Pancytopenia - due to Etoh * Congenital short acetabulum with hip pain -PT/OT -outpatient ortho consult * Homeless -reviewed with Cm -pt refused snf in past -cont evaluation Subjective: Confused. Denies pain. Not anxious. Objective: Vital Signs Temp Pulse Resp BP Pulse Ox 37.0 C 119 H 18 106/71 94 01/23/17 11:35 01/23/17 11:35 01/23/17 11:35 01/23/17 11:35 01/23/17 11:35 Laboratory Results 01/23/17 04:21 01/23/17 04:21 01/22/17 01/23/17 01/24/17 05:59 05:59 05:59 Intake Total 3860 1300 Output Total 3275 2250 400 Balance 585 -950 -400 PT 13.6 SEC (12.0-15.0) 01/21/17 04:10 INR 1.05 (0.83-1.16) 01/21/17 04:10 - Physical Exam Constitutional: appears nourished, not in pain, chronically ill appearing Eyes: PERRL, anicteric sclera, EOMI Ears, Nose, Mouth, Throat: moist mucous membranes, hearing normal, ears appear normal Cardiovascular: regular rate and rhythym, No JVD, No edema Respiratory: no respiratory distress, no rales or rhonchi, reduced air movement Gastrointestinal: normoactive bowel sounds, No tenderness, No ascites Skin: warm, normal color, No erythema Musculoskeletal: normal joint ROM, no joint effusions, generalized weakness Neurologic: No AAOx3 Psychiatric: not anxious, poor insight, poor judgement, No thought process linear ICD10 Worksheet Patient Problems: Problems Problem Status Onset Alcohol withdrawal Acute Alcohol intoxication Acute Altered mental status Acute Contusion of right hip Acute Cervical strain, acute Acute Alcohol intoxication Acute Hyperglycemia Acute Leg weakness, bilateral Acute
[2017-01-23] MEDS: THIAMINE HCL 500 MG in NS 100 ML IV SCH (14:12)
[2017-01-23] MEDS ORDERED: LORazepam 2 MG/ML INJ IVP ONE (14:14)
[2017-01-23] MEDS: LORazepam 2 MG/ML INJ IVP PRN ×3 (14:18→20:27)
[2017-01-23] MEDS ORDERED: INSULIN LISPRO 100 UNIT/ML SC ONE (18:00)
[2017-01-23 19:31] LABS: POTASSIUM 4.6 mEq/L (3.5-5.2)
[2017-01-23] MEDS: INSULIN GLARGINE 100 UNITS/ML SYRINGE SC SCH (20:27)
[2017-01-23] MEDS: HALOPERIDOL LACT 5 MG/ML INJ IVP PRN (21:35)
[2017-01-24] MEDS: HALOPERIDOL LACT 5 MG/ML INJ IVP PRN ×3 (00:59→23:55)
[2017-01-24] MEDS: NICOTINE POLACRILEX 2 MG GUM B PRN ×2 (00:59→20:51)
[2017-01-24] MEDS: LORazepam 2 MG/ML INJ IVP PRN ×4 (02:50→21:48)
[2017-01-24] MEDS: chlordiazePOXIDE 25 MG CAP PO PRN ×3 (04:03→19:28)
[2017-01-24] MEDS: IBUPROFEN 200 MG TAB PO PRN ×2 (04:03→19:27)
[2017-01-24] MEDS ORDERED: LORazepam 2 MG/ML INJ IVP ONE (05:15)
[2017-01-24 05:29] LABS: MAGNESIUM 1.7 mg/dL (1.6-2.3); POTASSIUM 4.7 mEq/L (3.5-5.2)
[2017-01-24] MEDS ORDERED: MAGNESIUM SULF 1 GM/DEXTROSE 100 ML IV ONE (07:42)
[2017-01-24 09:00] LABS: GLUCOSE 401 mg/dL (70-100)
[2017-01-24] MEDS: risperiDONE 1 MG TAB PO SCH ×2 (09:43→20:27)
[2017-01-24] MEDS: GABAPENTIN 300 MG CAP PO SCH ×3 (09:43→20:27)
[2017-01-24] MEDS: LORazepam 1 MG TAB PO PRN ×3 (09:43→18:27)
[2017-01-24] MEDS: CREON 12 CAP PO SCH (09:44)
[2017-01-24] MEDS: INSULIN LISPRO 100 UNIT/ML SC SCH ×3 (09:44→18:27)
[2017-01-24] MEDS: CREON 24 CAP PO SCH ×3 (09:44→18:27)
[2017-01-24] MEDS: NICOTINE 21 MG/24 HR PATCH TD SCH (09:45)
[2017-01-24] MEDS: THIAMINE HCL 500 MG in NS 100 ML IV SCH (09:45)
--- NOTE | 2017-01-24 13:12 | HOSPPROG ---
Hospitalist Progress Note Assessment/Plan: # etOH abuse and w/d - cont CIWA, high dose IV thiamine - concerned about WE or cerebellar degeneration; consider CT head # delirium - visual and auditory hallucinations - Dr Emile issa's risperdal # etOH hepatitis - improving, follow tomorrow; low DF # DM, insulin dependent - labile glucs - cont glargine 10, SSI, follow glucs # hypoNa - recheck today # anemia/thrombocytopenia - d/t etOH - follow tomorrow - pancytopenic on admit # peripheral neuropathy - gabapentin # congenital short acetabulum with hip pain -PT/OT -outpatient ortho consult # chronic pancreatitis - creon # homeless # dvt ppx - start lovenox when plts>100; SCDs for now Subjective: can barely stand or feed himself Objective: Vital Signs Temp Pulse Resp BP Pulse Ox 36.7 C 95 20 160/104 H 95 01/24/17 07:38 01/24/17 07:38 01/24/17 07:38 01/24/17 07:38 01/24/17 07:38 Laboratory Results 01/23/17 04:21 01/24/17 08:30 01/23/17 01/24/17 01/25/17 05:59 05:59 05:59 Intake Total 1300 200 Output Total 2250 1200 1 Balance -950 -1000 -1 PT 13.6 SEC (12.0-15.0) 01/21/17 04:10 INR 1.05 (0.83-1.16) 01/21/17 04:10 US reviewed; CXR reviewed; chart reviewed - Physical Exam Constitutional: chronically ill appearing Cardiovascular: regular rate and rhythym, no murmur, rub, or gallop Respiratory: no respiratory distress, no rales or rhonchi, clear to auscultation Gastrointestinal: normoactive bowel sounds, soft, non-tender abdomen Neurologic: other (tremulous, speaks slowly, AOx3) ICD10 Worksheet Patient Problems: Problems Problem Status Onset Alcohol withdrawal Acute Leg weakness, bilateral Acute Alcohol intoxication Acute Alcohol intoxication Acute Altered mental status Acute Cervical strain, acute Acute Contusion of right hip Acute Hyperglycemia Acute
[2017-01-24 13:49] LABS: ANION GAP 12 mEq/L (8-16); CALCIUM 9.9 mg/dL (8.5-10.4); CARBON DIOXIDE 18 mEq/l (22-31); CHLORIDE 109 mEq/L (97-110); CREATININE 0.8 mg/dL (0.7-1.3); GLOMERULAR FILTRATION RATE > 60; GLUCOSE 106 mg/dL (70-100); POTASSIUM 4.1 mEq/L (3.5-5.2); SODIUM 139 mEq/L (134-144)
[2017-01-24 19:35] LABS: POTASSIUM 4.1 mEq/L (3.5-5.2)
[2017-01-24] MEDS: INSULIN GLARGINE 100 UNITS/ML SYRINGE SC SCH (20:27)
[2017-01-25 04:54] LABS: % IMMATURE GRANULYOCYTES 0.8 % (0.0-1.1); ABSOLUTE IMMATURE GRANULOCYTES 0.04 10^3/uL (0.00-0.10); ADD DIFF? NO; ADD MORPH? NO; ADD SCAN? NO; ATYPICAL LYMPHOCYTE FLAG 50 (0-99); FRAGMENT RBC FLAG 0 (0-99); HEMATOCRIT 31.6 % (40.0-51.0); HEMOGLOBIN 10.4 g/dL (13.7-17.5); LEFT SHIFT FLG 0 (0-99); LIPEMIA HEMOLYSIS FLAG 80 (0-99); MEAN CELL HEMOGLOBIN CONCENTR. 32.9 g/dL (32.4-36.7); MEAN PLATELET VOLUME 10.4 fL (8.7-11.7); PLATELET CLUMPS FLAG 0 (0-99); PLATELET COUNT 169 10^3/uL (150-400); RED BLOOD CELL COUNT 3.36 10^6/uL (4.40-6.38); RED CELL DISTRIBUTION WIDTH 19.1 % (11.5-15.2)
[2017-01-25] MEDS: LORazepam 2 MG/ML INJ IVP PRN ×2 (04:56→20:37)
[2017-01-25 05:12] LABS: ALANINE AMINOTRANSFERASE 81 IU/L (21-72); ALBUMIN 3.5 g/dL (3.5-5.0); ALKALINE PHOSPHATASE 149 IU/L (38-126); ANION GAP 12 mEq/L (8-16); ASPARTATE AMINOTRANSFERASE 107 IU/L (17-59); BILIRUBIN,TOTAL 1.3 mg/dL (0.1-1.4); BILIRUBIN-CONJUGATED 0.3 mg/dL (0.0-0.5); CALCIUM 9.4 mg/dL (8.5-10.4); CARBON DIOXIDE 17 mEq/l (22-31); CHLORIDE 109 mEq/L (97-110); CREATININE 0.7 mg/dL (0.7-1.3); GLOMERULAR FILTRATION RATE > 60; GLUCOSE 260 mg/dL (70-100); MAGNESIUM 1.8 mg/dL (1.6-2.3); POTASSIUM 4.2 mEq/L (3.5-5.2); SODIUM 138 mEq/L (134-144); TOTAL PROTEIN 6.4 g/dL (6.3-8.2)
[2017-01-25] MEDS: IBUPROFEN 200 MG TAB PO PRN ×2 (05:42→18:24)
[2017-01-25] MEDS: chlordiazePOXIDE 25 MG CAP PO PRN ×2 (05:45→13:44)
[2017-01-25] MEDS ORDERED: MAGNESIUM SULF 1 GM/DEXTROSE 100 ML IV ONE (07:11)
[2017-01-25] MEDS: THIAMINE HCL 500 MG in NS 100 ML IV SCH (08:20)
[2017-01-25] MEDS: CREON 12 CAP PO SCH (08:20)
[2017-01-25] MEDS: risperiDONE 1 MG TAB PO SCH ×2 (08:20→20:25)
[2017-01-25] MEDS: CREON 24 CAP PO SCH ×3 (08:20→17:23)
[2017-01-25] MEDS: GABAPENTIN 300 MG CAP PO SCH ×3 (08:20→20:25)
[2017-01-25] MEDS: NICOTINE 21 MG/24 HR PATCH TD SCH (08:22)
[2017-01-25 09:00] LABS: GLUCOSE 348 mg/dL (70-100)
[2017-01-25] MEDS: INSULIN LISPRO 100 UNIT/ML SC SCH ×3 (09:43→17:23)
[2017-01-25] MEDS: LORazepam 1 MG TAB PO PRN ×2 (09:43→17:23)
--- NOTE | 2017-01-25 12:41 | HOSPPROG ---
Hospitalist Progress Note Assessment/Plan: # etOH abuse and w/d - cont CIWA, high dose IV thiamine - concerned about WE or cerebellar degeneration; consider CT head if does not continue to improve - overall doing slightly better today - will be a long course # delirium - visual and auditory hallucinations - Dr Emile issa's risperdal # etOH hepatitis - improving, follow tomorrow; low DF # DM, insulin dependent - labile glucs - cont glargine 10, SSI, follow glucs # hypoNa - resolved # anemia/thrombocytopenia - d/t etOH - pancytopenic on admit # peripheral neuropathy - gabapentin # congenital short acetabulum with hip pain -PT/OT -outpatient ortho consult # chronic pancreatitis - creon # homeless # dvt ppx - start lovenox today Subjective: ambulated with walker today; tells me he is having less trouble eating Objective: Vital Signs Temp Pulse Resp BP Pulse Ox 36.4 C 102 H 20 114/74 96 01/25/17 08:00 01/25/17 08:00 01/25/17 08:00 01/25/17 08:00 01/25/17 08:00 Laboratory Results 01/25/17 04:22 01/25/17 08:15 01/24/17 01/25/17 01/26/17 05:59 05:59 05:59 Intake Total 200 700 400 Output Total 1200 203 300 Balance -1000 497 100 PT 13.6 SEC (12.0-15.0) 01/21/17 04:10 INR 1.05 (0.83-1.16) 01/21/17 04:10 - Physical Exam Constitutional: chronically ill appearing Cardiovascular: regular rate and rhythym, no murmur, rub, or gallop Respiratory: no respiratory distress, no rales or rhonchi Gastrointestinal: normoactive bowel sounds, soft, non-tender abdomen, no palpable masses Neurologic: AAOx3, other (tremulous; decreased finger to nose; good heel to briceno ) ICD10 Worksheet Patient Problems: Problems Problem Status Onset Alcohol withdrawal Acute Alcohol intoxication Acute Altered mental status Acute Contusion of right hip Acute Cervical strain, acute Acute Alcohol intoxication Acute Hyperglycemia Acute Leg weakness, bilateral Acute
[2017-01-25] MEDS: ENOXAPARIN 40 MG/0.4 ML SYR SC SCH (13:45)
[2017-01-25] MEDS ORDERED: NS 1,000 ML IV SCH (14:00)
[2017-01-25 17:23] LABS: GLUCOSE 325 mg/dL (70-100)
[2017-01-25] MEDS: INSULIN GLARGINE 100 UNITS/ML SYRINGE SC SCH (20:26)
[2017-01-26] MEDS: LORazepam 1 MG TAB PO PRN ×2 (00:43→22:06)
[2017-01-26 01:31] LABS: GLUCOSE 374 mg/dL (70-100)
[2017-01-26] MEDS ORDERED: INSULIN REGULAR HUMAN 100 UNIT/ML IVP ONE (02:06)
[2017-01-26] MEDS ORDERED: INSULIN REGULAR HUMAN 100 UNIT/ML SC ONE (02:30)
[2017-01-26 05:29] LABS: ANION GAP 11 mEq/L (8-16); CALCIUM 9.2 mg/dL (8.5-10.4); CARBON DIOXIDE 16 mEq/l (22-31); CHLORIDE 109 mEq/L (97-110); CREATININE 0.7 mg/dL (0.7-1.3); GLOMERULAR FILTRATION RATE > 60; GLUCOSE 233 mg/dL (70-100); MAGNESIUM 1.6 mg/dL (1.6-2.3); POTASSIUM 4.3 mEq/L (3.5-5.2); SODIUM 136 mEq/L (134-144)
[2017-01-26] MEDS ORDERED: MAGNESIUM SULF 1 GM/DEXTROSE 100 ML IV ONE (07:33)
[2017-01-26] MEDS: IBUPROFEN 200 MG TAB PO PRN (08:52)
[2017-01-26] MEDS: CREON 24 CAP PO SCH ×3 (08:53→18:00)
[2017-01-26] MEDS: risperiDONE 1 MG TAB PO SCH ×2 (08:53→20:21)
[2017-01-26] MEDS: CREON 12 CAP PO SCH (08:53)
[2017-01-26] MEDS: GABAPENTIN 300 MG CAP PO SCH ×3 (08:53→22:06)
[2017-01-26] MEDS: chlordiazePOXIDE 25 MG CAP PO PRN ×2 (08:54→15:43)
[2017-01-26] MEDS: NICOTINE 21 MG/24 HR PATCH TD SCH (08:54)
[2017-01-26] MEDS: ENOXAPARIN 40 MG/0.4 ML SYR SC SCH (08:54)
[2017-01-26] MEDS: INSULIN LISPRO 100 UNIT/ML SC SCH ×3 (08:55→17:59)
[2017-01-26] MEDS: THIAMINE HCL 500 MG in NS 100 ML IV SCH (10:14)
--- NOTE | 2017-01-26 10:54 | HOSPPROG ---
Hospitalist Progress Note Assessment/Plan: Mr Mae is a 51 y/o male with a PMH of schizophrenia, alcoholism and neuropathy who presented to the ER with alcohol withdrawal.Today is my first encounter with him/ chart reviewed. # etOH abuse and w/d - cont CIWA, high dose IV thiamine - concerned about WE or cerebellar degeneration; consider CT head if does not continue to improve - he is doing better, and per nursing staff was able to walk # delirium - visual and auditory hallucinations - Dr Emile issa's Risperdal # etOH hepatitis - improving, follow tomorrow; low DF # DM, insulin dependent - labile glucs - cont glargine 10, SSI, follow glucs # hypoNa - resolved # anemia/thrombocytopenia - d/t etOH # peripheral neuropathy - gabapentin # congenital short acetabulum with hip pain -PT/OT -outpatient ortho consult # chronic pancreatitis - creon # homeless - has offered him placement/ he wants to go back to the streets when he can walk # dvt ppx - lovenox Subjective: Pete has no complaints. Objective: Vital Signs Temp Pulse Resp BP Pulse Ox 36.6 C 90 16 136/89 H 96 01/26/17 07:42 01/26/17 07:42 01/26/17 07:42 01/26/17 07:42 01/26/17 07:42 Laboratory Results 01/25/17 04:22 01/26/17 04:22 01/25/17 01/26/17 01/27/17 05:59 05:59 05:59 Intake Total 700 3880 200 Output Total 203 2101 300 Balance 497 1779 -100 PT 13.6 SEC (12.0-15.0) 01/21/17 04:10 INR 1.05 (0.83-1.16) 01/21/17 04:10 - Physical Exam Constitutional: not in pain, chronically ill appearing, unkempt Eyes: PERRL Ears, Nose, Mouth, Throat: hearing normal Cardiovascular: regular rate and rhythym Respiratory: no respiratory distress, reduced air movement Skin: warm Neurologic: AAOx3 Psychiatric: interacting appropriately, not anxious ICD10 Worksheet Patient Problems: Problems Problem Status Onset Alcohol withdrawal Acute Leg weakness, bilateral Acute Alcohol intoxication Acute Alcohol intoxication Acute Altered mental status Acute Cervical strain, acute Acute Contusion of right hip Acute Hyperglycemia Acute
[2017-01-26 17:47] LABS: GLUCOSE 324 mg/dL (70-100)
[2017-01-26] MEDS: INSULIN GLARGINE 100 UNITS/ML SYRINGE SC SCH (20:22)
[2017-01-27] MEDS: INSULIN LISPRO 100 UNIT/ML SC SCH ×3 (08:42→17:40)
[2017-01-27] MEDS: ENOXAPARIN 40 MG/0.4 ML SYR SC SCH (08:42)
[2017-01-27] MEDS: THIAMINE HCL 500 MG in NS 100 ML IV SCH (08:42)
[2017-01-27] MEDS: CREON 12 CAP PO SCH (08:43)
[2017-01-27] MEDS: risperiDONE 1 MG TAB PO SCH (08:43)
[2017-01-27] MEDS: GABAPENTIN 300 MG CAP PO SCH ×3 (08:43→21:55)
[2017-01-27] MEDS: NICOTINE 21 MG/24 HR PATCH TD SCH (08:43)
[2017-01-27] MEDS: CREON 24 CAP PO SCH ×3 (08:43→17:40)
[2017-01-27] MEDS: LORazepam 1 MG TAB PO PRN (08:51)
[2017-01-27] MEDS ORDERED: MAGNESIUM SULF 1 GM/DEXTROSE 100 ML IV ONE (09:46)
--- NOTE | 2017-01-27 11:18 | HOSPPROG ---
Hospitalist Progress Note Assessment/Plan: Mr Mae is a 51 y/o male with a PMH of schizophrenia, alcoholism and neuropathy who presented to the ER with alcohol withdrawal. # etOH abuse and w/d - cont CIWA, high dose IV thiamine - concerned about WE or cerebellar degeneration; consider CT head if does not continue to improve - he is doing better, he was able to ambulate in room for me # delirium - visual and auditory hallucinations - Dr Emile issa's Risperdal dc today and see how he does/ he will be back on the streets # etOH hepatitis - improving, follow tomorrow; low DF # DM, insulin dependent - labile glucs - cont glargine 15, SSI, follow glucs # hypoNa - resolved # anemia/thrombocytopenia - d/t etOH # peripheral neuropathy - gabapentin # congenital short acetabulum with hip pain -PT/OT -outpatient ortho consult # chronic pancreatitis - creon # homeless -CM has offered him placement/ he wants to go back to the streets when he can walk # dvt ppx - lovenox #Plan: to set him an appt w Dr Mingo Gomez, stop ativan, low dose librium/ nursing staff to give him a glucometer Subjective: Von wants to go out to the street today/ he says he can ambulate , agreeable to staying another night to be sure he is steady on his feet. Objective: Vital Signs Temp Pulse Resp BP Pulse Ox 36.7 C 93 18 136/93 H 94 01/27/17 07:47 01/27/17 07:47 01/27/17 07:47 01/27/17 07:47 01/27/17 07:47 Laboratory Results 01/25/17 04:22 01/26/17 17:15 01/26/17 01/27/17 01/28/17 05:59 05:59 05:59 Intake Total 3880 2320 Output Total 2101 1970 225 Balance 1779 350 -225 PT 13.6 SEC (12.0-15.0) 01/21/17 04:10 INR 1.05 (0.83-1.16) 01/21/17 04:10 - Physical Exam Constitutional: no apparent distress, appears nourished, not in pain Eyes: PERRL Ears, Nose, Mouth, Throat: hearing normal Cardiovascular: regular rate and rhythym Respiratory: no respiratory distress Gastrointestinal: normoactive bowel sounds Skin: warm Musculoskeletal: abnormal gait, generalized weakness Neurologic: AAOx3 Psychiatric: interacting appropriately, not anxious, not encephalopathic ICD10 Worksheet Patient Problems: Problems Problem Status Onset Alcohol withdrawal Acute Alcohol intoxication Acute Altered mental status Acute Contusion of right hip Acute Cervical strain, acute Acute Alcohol intoxication Acute Hyperglycemia Acute Leg weakness, bilateral Acute
[2017-01-27] MEDS ORDERED: INSULIN GLARGINE 100 UNITS/ML SYRINGE SC SCH (12:41)
[2017-01-27] MEDS: IBUPROFEN 200 MG TAB PO PRN (21:55)
[2017-01-28] MEDS: IBUPROFEN 200 MG TAB PO PRN (05:28)
[2017-01-28 07:31] VITALS: BP 137/96; PULSE 96; RESP 18; TEMP 98.5; O2SAT 96
[2017-01-28] MEDS ORDERED: MAGNESIUM SULF 1 GM/DEXTROSE 100 ML IV ONE (07:40)
[2017-01-28] MEDS: CREON 12 CAP PO SCH (08:10)
[2017-01-28] MEDS: CREON 24 CAP PO SCH (08:11)
[2017-01-28] MEDS: NICOTINE 21 MG/24 HR PATCH TD SCH (08:11)
[2017-01-28] MEDS: GABAPENTIN 300 MG CAP PO SCH (08:11)
[2017-01-28] MEDS: ENOXAPARIN 40 MG/0.4 ML SYR SC SCH (08:13)
[2017-01-28] MEDS: INSULIN LISPRO 100 UNIT/ML SC SCH (08:14)
--- NOTE | 2017-01-28 08:36 | HOSPPROG ---
Hospitalist Progress Note Assessment/Plan: Mr Mae is a 51 y/o male with a PMH of schizophrenia, alcoholism and neuropathy who presented to the ER with alcohol withdrawal. # etOH abuse and w/d - cont CIWA, high dose IV thiamine - concerned about WE or cerebellar degeneration - he is doing better # delirium - visual and auditory hallucinations - Dr Baptiste rec's Risperdal -dc the Risperdal/ he's doing fine # etOH hepatitis # DM, insulin dependent - labile glucs - cont glargine 15, SSI, follow glucs # hypoNa - resolved # anemia/thrombocytopenia - d/t etOH # peripheral neuropathy - gabapentin # congenital short acetabulum with hip pain -PT/OT -outpatient ortho consult # chronic pancreatitis - creon # homeless - has offered him placement/ he wants to go back to the streets when he can walk # dvt ppx - lovenox #Plan: to see Dr [facility]/ if he can walk he can be dc/ refusing SNF Subjective: Gonzalo wants to go. Objective: Vital Signs Temp Pulse Resp BP Pulse Ox 36.9 C 96 18 137/96 H 96 01/28/17 07:29 01/28/17 07:29 01/28/17 07:29 01/28/17 07:29 01/28/17 07:29 Laboratory Results 01/25/17 04:22 01/26/17 17:15 01/27/17 01/28/17 01/29/17 05:59 05:59 05:59 Intake Total 2320 200 Output Total 1970 225 Balance 350 -25 PT 13.6 SEC (12.0-15.0) 01/21/17 04:10 INR 1.05 (0.83-1.16) 01/21/17 04:10 - Physical Exam Constitutional: no apparent distress, chronically ill appearing Eyes: PERRL Ears, Nose, Mouth, Throat: hearing normal Respiratory: no respiratory distress Skin: warm Musculoskeletal: generalized weakness Neurologic: AAOx3 Psychiatric: interacting appropriately, not anxious ICD10 Worksheet Patient Problems: Problems Problem Status Onset Alcohol withdrawal Acute Leg weakness, bilateral Acute Alcohol intoxication Acute Alcohol intoxication Acute Altered mental status Acute Cervical strain, acute Acute Contusion of right hip Acute Hyperglycemia Acute
[2017-01-28] MEDS: THIAMINE HCL 500 MG in NS 100 ML IV SCH (10:02)
--- NOTE | 2017-01-28 19:36 | GDS ---
[f rep st] DISCHARGE SUMMARY DISCHARGE DIAGNOSES: 1. Alcohol abuse and withdrawal. 2. Delirium. 3. Alcoholic hepatitis. 4. Diabetes, type 2. 5. Hyponatremia. 6. Anemia/thrombocytopenia. 7. Peripheral neuropathy. 8. Congenital short acetabulum with hip pain. 9. Chronic pancreatitis. 10. Homelessness. HISTORY OF PRESENT ILLNESS: Briefly, the patient is a 51-year-old male with a past medical history of schizophrenia, alcoholism, and neuropathy. He presented to the emergency room with severe alcoho l withdrawal. HOSPITAL COURSE BY PROBLEM: 1. Alcohol abuse and withdrawal: He was treated high-dose thiamin. There was concern that he has Wernicke's or cerebellar degeneration. He is doing better today, and yesterday he was able to ambul ate in the room. Doubtful that he will quit drinking. 2. Delirium: He had visual and auditory hallucinations. He was seen by Dr. Baptiste. He was treate d with Risperdal; this has been discontinued because he will be on the street. 3. Alcoholic hepatitis: Overall stable. 4. Diabetes, type 2. His glucoses have been labile. He does not check his blood sugars. I have a sked the nursing staff to get him a glucometer. He also has a followup appointment with Dr. Méndez at [facility]. In addition, prescriptions for his long-acting and short-acting insulin have be en called in to [facility]. 5. Hyponatremia, resolved. 6. Anemia/thrombocytopenia. This is due to alcohol use. 7. Peripheral neuropathy, better with gabapentin. 8. Congenital short acetabulum with hip pain. He is able to walk. 9. Chronic pancreatitis. Resume on his home [place]. 10. Homelessness. Case management has worked with him extensively, offering him [facility] fa cility. At this time, he is decisional and would like to be discharged back to the streets. CONDITION AT DISCHARGE: Stable. Blood pressure is 137/96, heart rate is 96, respiratory rate is 18 , O2 sats on room air 96%, temperature 36.9 Celsius. MEDICATIONS AT DISCHARGE: Please see the EMR. DISCHARGE INSTRUCTIONS: 1. Really encouraging this patient to stop drinking. Recommended that he go to the [facility]. 2. Follow up with Dr. Mingo Méndez. 3. Prescriptions for his insulin been called an. Greater than 30 minutes discharging and coordinating care. /[id number]/MODL
== END 2017-01-28 11:45 | disposition home or self-care (01) | DRG 897 ==
LOC: EDUNIT# → OBSVTOIN 15:07 → F2N 18:02 → F3N 01-22 17:20
PROVIDERS: ADMIT Hospitalist; ATTEND Internal Medicine
DX: F10.230 Alcohol dependence with withdrawal, uncomplicated (principal); K86.1 Other chronic pancreatitis; E87.1 Hypo-osmolality and hyponatremia; D61.818 Other pancytopenia; K70.10 Alcoholic hepatitis without ascites; E11.9 Type 2 diabetes mellitus without complications; G62.9 Polyneuropathy, unspecified; Q74.8 Other specified congenital malformations of limb(s); Z59.0 Homelessness; F20.9 Schizophrenia, unspecified; Z72.0 Tobacco use; Z79.4 Long term (current) use of insulin
CPT/HCPCS: 82947-QW; 96374; 97116-GP; 97161-GP; 97166-GO; 97530-GO; 97530-GP; 97535-GO; G0378; G0472; J1650; J1815; J2060; J3411; J3475

== ENCOUNTER 2017-02-11 17:55 | Emergency (ER) | payer MEDICAID ==
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
[2017-02-11 18:02] VITALS: RESP 18; TEMP 98.1
[2017-02-11] MEDS ORDERED: NS 500 ML IV ONE (19:27)
[2017-02-11 19:33] VITALS: BP 121/84; PULSE 94; O2SAT 92
[2017-02-11] MEDS ORDERED: IBUPROFEN 600 MG TAB PO ONE ×2 (19:42→19:43)
[2017-02-11] MEDS ORDERED: CHLORDIAZEPOXIDE 25MG PREPK#6 BTL TAKEHOME ONE (20:21)
[2017-02-11] MEDS ORDERED: LORazepam 1 MG TAB ONE (21:44)
[2017-02-11] MEDS ORDERED: LORazepam 1 MG TAB PO ONE (21:45)
== END 2017-02-11 22:51 | disposition home or self-care (01) ==
LOC: EDUNIT#
DX: F10.230 Alcohol dependence with withdrawal, uncomplicated (principal); E11.9 Type 2 diabetes mellitus without complications; I10 Essential (primary) hypertension; F17.200 Nicotine dependence, unspecified, uncomplicated; E86.9 Volume depletion, unspecified; Z79.4 Long term (current) use of insulin
CPT/HCPCS: 82947-QW

== ENCOUNTER 2017-02-12 05:17 | Emergency (ER) | payer MEDICAID ==
[2017-02-12 05:22] VITALS: BP 144/100; PULSE 114; RESP 20; TEMP 97.7; O2SAT 94
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
== END 2017-02-12 06:23 | disposition home or self-care (01) ==
DX: S76.011A Strain of muscle, fascia and tendon of right hip, initial encounter (principal); S76.012A Strain of muscle, fascia and tendon of left hip, initial encounter; E11.9 Type 2 diabetes mellitus without complications; I10 Essential (primary) hypertension; F17.200 Nicotine dependence, unspecified, uncomplicated; Z79.4 Long term (current) use of insulin; X58.XXXA Exposure to other specified factors, initial encounter

== ENCOUNTER 2017-03-24 07:46 | Emergency (ER) | payer MEDICAID ==
--- NOTE | 2017-03-24 07:48 | EDPHY ---
HPI/HX/ROS/PE/MDM Narrative: CHIEF COMPLAINT: Weakness, tremulousness HPI: The patient is a homeless 51 y/o male arriving via EMS complaining of generalized weakness onset this morning. He has a history of diabetes, alcoholism, and schizophrenia. This is his 12th ED visit in the last year for alcohol-related symptoms. Per EMS, his friend found him sitting under a tree near [place] and was concerned he was too weak to walk on his own. The patient complains of tremulousness that began yesterday and usually improves when he drinks alcohol. His last alcohol use was yesterday. He has baseline pain in his hips and knees that also causes difficulty walking. He denies unilateral weakness, new paresthesias, fever, vomiting, diarrhea, cough, chest pain, shortness of breath, or other symptoms. His EMS BGL was 138. REVIEW OF SYSTEMS: Aside from elements discussed in the HPI, a comprehensive 10-point review of systems was reviewed and is negative. PMH: Diabetes type II - insulin, pancreatitis, schizophrenia, alcoholism, neuropathy, chronic hip pain related to congenitally short acetabulum, prior visits for alcohol withdrawal SOCIAL HISTORY: Homeless, alcohol abuse, uses a cane to walk, PCP: Dr. M[facility]dez at [facility] Prior medical records reviewed including admission 01/20/17 for tremulousness. PHYSICAL EXAM: General:Patient is alert, in no acute distress. ENT:Eyes are normal to inspection. ENT inspection normal. Neck: Normal inspection. Full range of motion. Respiratory:No respiratory distress. Breath sounds normal bilaterally. Cardiovascular: Regular rate and rhythm. Strong peripheral pulses. Normal cap refill. Abdomen:Diffuse abdominal tenderness to palpation. There are no peritoneal signs. There are normal bowel sounds. Back: Normal to inspection. No tenderness to palpation. Skin: Normal color. No rash. Warm and dry. Extremities: Normal appearance. Full range of motion. Neuro: Oriented x3. Normal motor function. Normal sensory function. Grossly tremulous. ED Course: IV established. Labs drawn including CBC, CHEM, lipase, LFTs, troponin. 1L IV NS administered. Patient is chronically anemic and has a Hct of 27 today, lower than his average around 31 in January. LFTs are elevated at baseline and are elevated today. 50mg PO Librium administered for tremulousness likely related to alcohol withdrawal. MDM: This patient presents with diffuse non-specific weakness and alcohol withdrawal. His workup reveals a number of abnormalities, including anemia, but these appear to be all relatively baseline for the patient. He has had multiple similar admissions in the past, and sometimes gets admitted, sometimes not. He is afebrile and has no infectious symptoms. His alcohol withdrawal was easily controlled with meds here in the ED. He is refusing transport to the [facility]. I do not think admission is indicated at this visit. - Data Points Laboratory Results: Laboratory Results 03/24/17 07:54 03/24/17 07:54 03/24/17 03/24/17 07:54 07:54 WBC 3.58 10^3/uL L 10^3/uL (3.80-9.50) RBC 2.85 10^6/uL L 10^6/uL (4.40-6.38) Hgb 9.0 g/dL L g/dL (13.7-17.5) Hct 27.0 % L % (40.0-51.0) MCV 94.7 fL fL (81.5-99.8) MCH 31.6 pg pg (27.9-34.1) MCHC 33.3 g/dL g/dL (32.4-36.7) RDW 17.7 % H % (11.5-15.2) Plt Count 97 10^3/uL L 10^3/uL (150-400) MPV 9.5 fL fL (8.7-11.7) Neut % (Auto) 68.2 % % (39.3-74.2) Lymph % (Auto) 20.4 % % (15.0-45.0) [place] % (Auto) 8.9 % % (4.5-13.0) Eos % (Auto) 0.3 % L % (0.6-7.6) Baso % (Auto) 1.1 % % (0.3-1.7) Nucleat RBC Rel Count 0.0 % % (0.0-0.2) Absolute Neuts (auto) 2.44 10^3/uL 10^3/uL (1.70-6.50) Absolute Lymphs (auto) 0.73 10^3/uL L 10^3/uL (1.00-3.00) Absolute Monos (auto) 0.32 10^3/uL 10^3/uL (0.30-0.80) Absolute Eos (auto) 0.01 10^3/uL L 10^3/uL (0.03-0.40) Absolute Basos (auto) 0.04 10^3/uL 10^3/uL (0.02-0.10) Absolute Nucleated RBC 0.00 10^3/uL 10^3/uL (0-0.01) Immature Gran % 1.1 % % (0.0-1.1) Immature Gran # 0.04 10^3/uL 10^3/uL (0.00-0.10) Sodium 137 mEq/L mEq/L (134-144) Potassium 4.0 mEq/L mEq/L (3.5-5.2) Chloride 99 mEq/L mEq/L (97-110) Carbon Dioxide 19 mEq/l L mEq/l (22-31) Anion Gap 19 mEq/L H mEq/L (8-16) BUN 7 mg/dL mg/dL (7-23) Creatinine 0.7 mg/dL mg/dL (0.7-1.3) Estimated GFR > 60 Glucose 167 mg/dL H mg/dL (70-100) Calcium 8.8 mg/dL mg/dL (8.5-10.4) Total Bilirubin 3.0 mg/dL H mg/dL (0.1-1.4) Conjugated Bilirubin 0.8 mg/dL H mg/dL (0.0-0.5) Unconjugated Bilirubin 2.2 mg/dL H mg/dL (0.0-1.1) AST 406 IU/L H IU/L (17-59) ALT 116 IU/L H IU/L (21-72) Alkaline Phosphatase 281 IU/L H IU/L (38-126) Troponin I < 0.012 ng/mL ng/mL (0.000-0.034) Total Protein 6.5 g/dL g/dL (6.3-8.2) Albumin 3.9 g/dL g/dL (3.5-5.0) Lipase 17 IU/L L IU/L (23-300) Medications Given: Discontinued Medications Acetaminophen (Tylenol) 650 mg PO EDNOW ONE Stop: 03/24/17 09:14 Last Admin: 03/24/17 09:17 Dose: 650 mg Albuterol (Proventil Neb) 3 ml IH EDNOW ONE Stop: 03/24/17 08:53 Last Admin: 03/24/17 08:58 Dose: Not Given Albuterol/Ipratropium (Duoneb) 3 ml IH EDNOW ONE Stop: 03/24/17 08:53 Last Admin: 03/24/17 08:58 Dose: Not Given Chlordiazepoxide HCl (Librium) 50 mg PO EDNOW ONE Stop: 03/24/17 08:53 Last Admin: 03/24/17 08:55 Dose: 50 mg Sodium Chloride (Ns) 1,000 mls @ 0 mls/hr IV EDNOW ONE; Wide Open PRN Reason: Protocol Stop: 03/24/17 07:51 Last Admin: 03/24/17 07:56 Dose: 1,000 mls Lorazepam (Ativan) 1 mg PO EDNOW ONE Stop: 03/24/17 09:57 Last Admin: 03/24/17 09:59 Dose: 1 mg Methylprednisolone Sodium Succinate (Solu-Medrol) 125 mg IVP EDNOW ONE Stop: 03/24/17 08:53 Last Admin: 03/24/17 08:58 Dose: Not Given General Initial Vital Signs: Initial Vital Signs Temperature (C) 37 C 03/24/17 07:52 Heart Rate 92 03/24/17 07:52 Respiratory Rate 18 03/24/17 07:52 Blood Pressure 134/102 H 03/24/17 07:52 O2 Sat (%) 99 03/24/17 07:52 O2 Delivery Mode Room Air Allergies/Adverse Reactions: No Allergies [NKDA] Allergy (Verified 12/15/16 21:16) MILK THISTEL Allergy (Uncoded 12/15/16 21:16) Home Medications: Medication Instructions Recorded Lipase/Protease/Amylase [Creon 6 2 cap PO DAILY 01/20/17 (*)] Lipase/Protease/Amylase [Creon 6 4 cap PO TIDMEAL 01/20/17 (*)] Ibuprofen [Motrin (*)] 400 mg PO Q6HRS PRN #0 tab 01/28/17 Insulin Aspart [novoLOG] 5 unit SQ TIDMEAL #1 vial 01/28/17 Insulin Detemir [Levemir] 100 unit SQ 15 #1 ml 01/28/17 Syringe-Needle,Insulin,0.5 ml 1 each QID #50 disp.syrin 01/28/17 [Insulin Syringe] Departure - Departure Disposition: Home, Routine, Self-Care Clinical Impression: Alcohol withdrawal Qualifiers: Complication of substance-induced condition: uncomplicated Qualified Code(s): F10.230 - Alcohol dependence with withdrawal, uncomplicated Condition: Good Instructions: Abuse of Alcohol (ED), Alcohol Withdrawal (ED) Additional Instructions: 1. Go to the [facility] if you wish to detox from alcohol. 2. Follow up with your primary care provider for unimproved symptoms over the next few days. 3. Return to the ED for worsening of condition. 4. Avoid abusing alcohol. Referrals: Patient,NotPresent [Unknown] - As per Instructions Mingo Méndez MD [Primary Care Provider] - As per Instructions Report Scribed for: Luis Fernando Moyer Report Scribed by: Esperanza Wlech Date of Report: 03/24/17 Time of Report: 07:56 Physician Review and Approval Statement: Portions of this note were transcribed by an ED scribe. I personally performed the history, physical exam, and medical decision making; and confirm the accuracy of the information in the transcribed note.
[2017-03-24] MEDS ORDERED: NS 1,000 ML IV ONE (07:50)
[2017-03-24 07:53] VITALS: O2SAT 99
[2017-03-24 08:03] LABS: % IMMATURE GRANULYOCYTES 1.1 % (0.0-1.1); ABSOLUTE IMMATURE GRANULOCYTES 0.04 10^3/uL (0.00-0.10); ADD DIFF? NO; ADD MORPH? NO; ADD SCAN? NO; ATYPICAL LYMPHOCYTE FLAG 0 (0-99); FRAGMENT RBC FLAG 0 (0-99); LEFT SHIFT FLG 0 (0-99); LIPEMIA HEMOLYSIS FLAG 80 (0-99); MEAN CELL HEMOGLOBIN 31.6 pg (27.9-34.1); MEAN CELL HEMOGLOBIN CONCENTR. 33.3 g/dL (32.4-36.7); MEAN CELL VOLUME 94.7 fL (81.5-99.8); MEAN PLATELET VOLUME 9.5 fL (8.7-11.7); PLATELET CLUMPS FLAG 0 (0-99); PLATELET COUNT 97 10^3/uL (150-400); RED BLOOD CELL COUNT 2.85 10^6/uL (4.40-6.38); RED CELL DISTRIBUTION WIDTH 17.7 % (11.5-15.2)
[2017-03-24 08:15] LABS: ALANINE AMINOTRANSFERASE 116 IU/L (21-72); ALBUMIN 3.9 g/dL (3.5-5.0); ALKALINE PHOSPHATASE 281 IU/L (38-126); ANION GAP 19 mEq/L (8-16); ASPARTATE AMINOTRANSFERASE 406 IU/L (17-59); BILIRUBIN-CONJUGATED 0.8 mg/dL (0.0-0.5); BILIRUBIN-UNCONJUGATED 2.2 mg/dL (0.0-1.1); CALCIUM 8.8 mg/dL (8.5-10.4); CARBON DIOXIDE 19 mEq/l (22-31); CHLORIDE 99 mEq/L (97-110); CREATININE 0.7 mg/dL (0.7-1.3); GLOMERULAR FILTRATION RATE > 60; GLUCOSE 167 mg/dL (70-100); SODIUM 137 mEq/L (134-144); TOTAL PROTEIN 6.5 g/dL (6.3-8.2)
[2017-03-24 08:26] LABS: TROPONIN I < 0.012 ng/mL (0.000-0.034)
[2017-03-24] MEDS ORDERED: chlordiazePOXIDE 25 MG CAP PO ONE ×2 (08:52→10:34)
[2017-03-24] MEDS ORDERED: IPRATROPIUM/ALBUTEROL 3 ML DEYVIAL IH ONE (08:52)
[2017-03-24] MEDS ORDERED: methylPREDNISolone SOD SUCC 125 MG/2 ML VIAL IVP ONE (08:52)
[2017-03-24] MEDS ORDERED: ALBUTEROL 3 ML DEYVIAL IH ONE (08:52)
[2017-03-24] MEDS ORDERED: ACETAMINOPHEN 325 MG TAB ONE (09:09)
[2017-03-24] MEDS ORDERED: ACETAMINOPHEN 325 MG TAB PO ONE (09:13)
[2017-03-24] MEDS ORDERED: LORazepam 1 MG TAB PO ONE (09:56)
[2017-03-24 10:52] VITALS: BP 130/89; PULSE 88; RESP 16; TEMP 97.9
== END 2017-03-24 10:52 | disposition home or self-care (01) ==
LOC: EDUNIT#
DX: F10.230 Alcohol dependence with withdrawal, uncomplicated (principal); E11.9 Type 2 diabetes mellitus without complications; E86.9 Volume depletion, unspecified; Z79.4 Long term (current) use of insulin
CPT/HCPCS: 96374; J1815; J2060

== ENCOUNTER 2017-03-24 15:49 | Emergency (ER) | payer MEDICAID ==
[2017-03-24 15:59] VITALS: TEMP 98.4
[2017-03-24] MEDS ORDERED: NS 1,000 ML IV ONE (20:07)
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
[2017-03-24] MEDS ORDERED: LORazepam 2 MG/ML INJ IVP ONE (20:08)
[2017-03-24 20:56] LABS: % IMMATURE GRANULYOCYTES 0.6 % (0.0-1.1); ABSOLUTE IMMATURE GRANULOCYTES 0.03 10^3/uL (0.00-0.10); ADD DIFF? NO; ADD MORPH? NO; ADD SCAN? NO; ATYPICAL LYMPHOCYTE FLAG 0 (0-99); FRAGMENT RBC FLAG 0 (0-99); HEMOGLOBIN 8.9 g/dL (13.7-17.5); LEFT SHIFT FLG 0 (0-99); LIPEMIA HEMOLYSIS FLAG 80 (0-99); MEAN CELL VOLUME 97.1 fL (81.5-99.8); MEAN PLATELET VOLUME 10.5 fL (8.7-11.7); PLATELET CLUMPS FLAG 10 (0-99); PLATELET COUNT 110 10^3/uL (150-400); RED BLOOD CELL COUNT 2.78 10^6/uL (4.40-6.38); RED CELL DISTRIBUTION WIDTH 18.3 % (11.5-15.2)
[2017-03-24 21:13] LABS: ANION GAP 13 mEq/L (8-16); CALCIUM 9.6 mg/dL (8.5-10.4); CARBON DIOXIDE 25 mEq/l (22-31); CHLORIDE 96 mEq/L (97-110); CREATININE 0.8 mg/dL (0.7-1.3); GLOMERULAR FILTRATION RATE > 60; GLUCOSE 174 mg/dL (70-100); POTASSIUM 4.3 mEq/L (3.5-5.2); SODIUM 134 mEq/L (134-144)
[2017-03-24] MEDS ORDERED: INSULIN GLARGINE 100 UNITS/ML SYRINGE SC ONE (21:32)
[2017-03-24] MEDS ORDERED: CHLORDIAZEPOXIDE 25MG PREPK#6 BTL TAKEHOME ONE (21:38)
[2017-03-24] MEDS ORDERED: chlordiazePOXIDE 25 MG CAP PO ONE (22:22)
[2017-03-25] MEDS ORDERED: NS 1,000 ML IV ONE (00:07)
[2017-03-25 00:10] VITALS: PULSE 116; RESP 18; O2SAT 93
[2017-03-25 00:12] VITALS: BP 150/89
[2017-03-25] MEDS ORDERED: CHLORDIAZEPOXIDE 25MG PREPK#6 BTL TAKEHOME ONE (01:04)
== END 2017-03-25 00:59 | disposition home or self-care (01) ==
DX: E11.65 Type 2 diabetes mellitus with hyperglycemia (principal); I10 Essential (primary) hypertension; F10.230 Alcohol dependence with withdrawal, uncomplicated; E86.9 Volume depletion, unspecified; F17.200 Nicotine dependence, unspecified, uncomplicated; Z79.4 Long term (current) use of insulin
CPT/HCPCS: 96374; J1815; J2060

== ENCOUNTER 2017-03-25 13:42 | Inpatient (IN) | payer MEDICAID ==
--- NOTE | 2017-03-25 14:11 | EDPHY ---
HPI/HX/ROS/PE/MDM Narrative: CHIEF COMPLAINT: Shakes and inability to walk HISTORY OF PRESENT ILLNESS: The patient is a 51 y/o male who complains of an inability to walk because of his hip pain. He is a homeless alcoholic that is well known to this ED, and often complains of bilateral hip pain. He states his last drink was 4 days ago. After being discharged from the ED last night he fell down 4 times. He believes he hit his head last night. Denies history of alcohol withdrawal seizures. No fever, chills, chest pain, shortness of breath, palpitations, vomiting, diarrhea, urinary complaints, headache, lightheadedness. Prior medical records reviewed including ED visit on 03/24/[address] Boyle. REVIEW OF SYSTEMS: Aside from elements discussed in the HPI, a comprehensive 10-point review of systems was reviewed and is negative. PAST MEDICAL HISTORY: Alcoholism Diabetes Hypertension Pancreatitis Schizophrenia SOCIAL HISTORY: Homeless Alcohol, tobacco, and marijuana use VITAL SIGNS: Reviewed by me GENERAL: Disheveled, not showered. HEENT: Atraumatic. Eyes: Bilateral conjunctival injection and mild icterus in eyes. Mouth: moist mucous membranes. Tremors of tongue. No erythema or lesions. Neck: supple with no adenopathy. LUNGS: Clear to auscultation bilaterally, no wheezes, rhonchi or rales. CARDIAC: Regular rate and rhythm, no rubs, murmurs or gallops. ABDOMEN: Soft, nontender, nondistended, bowel sounds normal. BACK: No CVA tenderness. PELVIS: Tenderness with external rotation of both hips. Pelvis stable to compression, no visible trauma. Old abrasion over right greater trochanter. Grade 1 skin break down over coccyx. EXTREMITIES: Range of motion is normal throughout. NEURO: Alert and oriented, grossly nonfocal. SKIN: Warm and dry, no rash. PSYCHIATRIC: Normal mentation, no agitation. Portions of this note were transcribed by a medical reimbursement manager. I personally performed a history, physical exam, medical decision making, and confirmed accuracy of information the transcribed note. ED Course: The patient is a 51 y/o male who presents with bilateral tenderness of his hips with external rotation. His pelvis is stable to compression, with no visible trauma. There is no trauma to his head. The last imaging study of his hips was done in January, however he has not had a CT study performed. 1524: Spoke with radiologist. His pelvic CT is normal with no mechanical reason for inability to walk. Labs are pending. Also awaiting a case management consult. 1644: Patient seen by case management but states he does not want to work with them regarding disposition. He tried to ambulate from ED, but was unable to walk down the hallway. 1711: Reassessed patient. He states he can't walk because he feels dizzy, off balance, and feels like he's going to fall when he ambulates. On exam he has difficulty with the finger to nose test. He also feels like he is going to fall to his right side. He also describes significant truncal ataxia. CT scan of head ordered. Thiamine and multivitamins ordered. Am concerned regarding werneckies encephalopathy. Will also treat patients conjunctivitis with ofloxacin. 1805: Spoke with Dr. Pruitt, hospitalist, she accepts admission of this patient. Head CT is still pending. 1850: Spoke with radiologist, head CT is negative. MDM: Diff dx for patient presenting complaints considered including but not limited to alcohol intoxication, mechanical hip issues, neurologic causes, intracranial hemorrhage, cardiac causes of dizziness, wernickes encephalopathy. - Data Points Imaging Results: CT Pelvis: Impression: Normal CT scan of the pelvis. Findings and recommendations discussed with Dr. Loreto Ramos, at 1522 hours on March 25, 2017. Final report concurs with initial preliminary interpretation. Dictated By: Christine Cosby MD CT Head: Impression: 1. No acute abnormalities. 2. Stable moderate volume loss, more than expected for patient age. 3. Stable moderate supratentorial small vessel ischemic changes. Dr. Olsen discussed these findings by telephone with Loreto Ramos MD at 03/25/2017 18:50. Dictated By: Hermilo Olsen MD CXR: Impression: Very mild perihilar bronchitis, without a focal infiltrate. Dictated By: Greg Bah MD Imaging: Discussed imaging studies w/ will call order clerk Radiologist, I viewed and interpreted images myself Laboratory Results: Laboratory Results 03/25/17 15:02 03/25/17 15:02 Medications Given: Chlordiazepoxide HCl (Librium) 25 mg PO TID TAMMIE Stop: 09/21/17 21:59 Last Admin: 03/26/17 07:58 Dose: 25 mg Enoxaparin Sodium (Lovenox) 40 mg SC DAILY [facility] Stop: 09/22/17 08:59 Last Admin: 03/26/17 09:45 Dose: 40 mg Folic Acid (Folic Acid) 1 mg PO DAILY [facility] Stop: 09/21/17 19:44 Last Admin: 03/26/17 07:58 Dose: 1 mg Thiamine HCl 500 mg/ Sodium (Chloride) 105 mls @ 210 mls/hr IV Q8HRS [facility] Stop: 09/21/17 20:59 Last Admin: 03/26/17 05:26 Dose: 105 mls Insulin Human Lispro (Humalog Lispro) 0 unit SC TIDMEAL TAMMIE PRN Reason: Protocol Stop: 09/22/17 07:59 Last Admin: 03/26/17 07:59 Dose: 2 units Lorazepam (Ativan) 1 mg PO Q4HRS PRN PRN Reason: Agitation if able to take PO Stop: 09/21/17 19:33 Last Admin: 03/26/17 04:20 Dose: 1 mg Morphine Sulfate (Morphine) 1 - 2 mg IVP Q4HRS PRN PRN Reason: Pain, Severe Unable to Take PO Stop: 04/05/17 05:14 Last Admin: 03/26/17 05:25 Dose: 2 mg Nicotine (Nicoderm Cq) 14 mg TD DAILY [facility] Stop: 09/21/17 21:29 Last Admin: 03/26/17 07:59 Dose: 14 mg Vitamin B Complex (Vitamin B12) 1,000 mcg PO DAILY [facility] Stop: 09/21/17 19:59 Last Admin: 03/26/17 07:58 Dose: 1,000 mcg Discontinued Medications Acetaminophen (Tylenol) 650 mg PO EDNOW ONE Stop: 03/25/17 15:40 Last Admin: 03/25/17 15:56 Dose: 650 mg Chlordiazepoxide HCl (Librium) 25 mg PO EDNOW ONE Stop: 03/25/17 14:28 Last Admin: 03/25/17 15:57 Dose: 25 mg Sodium Chloride (Ns) 1,000 mls @ 0 mls/hr IV ONCE ONE; Wide Open PRN Reason: Protocol Stop: 03/25/17 14:27 Last Admin: 03/25/17 15:11 Dose: 1,000 mls Sodium Chloride (Ns) 1,000 mls @ 3,000 mls/hr IV ONCE ONE Stop: 03/25/17 19:53 Last Admin: 03/25/17 20:30 Dose: 1,000 mls Multivitamins (Tab-A-Mounika) 1 each PO EDNOW ONE Stop: 03/25/17 17:18 Last Admin: 03/25/17 17:54 Dose: 1 each Ofloxacin (Ocuflox 0.3%) 1 drops EACHEYE EDNOW ONE Stop: 03/25/17 17:17 Last Admin: 03/25/17 18:50 Dose: 1 drop Oxycodone/Acetaminophen (Percocet 5/325) 1 - 2 tab PO Q4HRS PRN PRN Reason: Pain, Severe Able to Take PO Stop: 04/04/17 19:33 Last Admin: 03/26/17 08:38 Dose: 2 tab Thiamine HCl (Vitamin B-1) 100 mg PO EDNOW ONE Stop: 03/25/17 17:17 Last Admin: 03/25/17 17:54 Dose: 100 mg General Time Seen by Provider: 03/25/17 14:09 Initial Vital Signs: Initial Vital Signs Temperature (C) 36.7 C 03/25/17 13:55 Heart Rate 88 03/25/17 13:55 Respiratory Rate 18 03/25/17 13:55 Blood Pressure 129/78 H 03/25/17 13:55 O2 Sat (%) 99 03/25/17 13:55 O2 Delivery Mode Room Air Allergies/Adverse Reactions: No Allergies [NKDA] Allergy (Verified 03/24/17 15:55) MILK THISTEL Allergy (Uncoded 12/15/16 21:16) Home Medications: Medication Instructions Recorded Lipase/Protease/Amylase [Creon 6 4 cap PO TIDMEAL 01/20/17 (*)] Gabapentin [Neurontin 100 MG (*)] 100 mg PO TID 03/25/17 Insulin Detemir [Levemir] 6 unit SQ 15 03/25/17 Insulin Lispro [Humalog] 5 unit SQ BID@12,18 03/25/17 Lisinopril [Zestril 20 mg (*)] 20 mg PO DAILY 03/25/17 Departure - Departure Disposition: [facility] Clinical Impression: Leg weakness, bilateral, Inability to ambulate due to hip, Ataxia Condition: Fair Report Scribed for: Loreto Ramos Report Scribed by: Gaviota Pedro Date of Report: 03/25/17 Time of Report: 14:10
[2017-03-25] MEDS ORDERED: NS 1,000 ML IV ONE ×2 (14:26→19:34)
[2017-03-25] MEDS ORDERED: chlordiazePOXIDE 25 MG CAP PO ONE (14:27)
[2017-03-25 15:15] LABS: % IMMATURE GRANULYOCYTES 0.7 % (0.0-1.1); ABSOLUTE IMMATURE GRANULOCYTES 0.03 10^3/uL (0.00-0.10); ADD DIFF? NO; ADD MORPH? NO; ADD SCAN? NO; ATYPICAL LYMPHOCYTE FLAG 0 (0-99); FRAGMENT RBC FLAG 0 (0-99); HEMATOCRIT 26.5 % (40.0-51.0); HEMOGLOBIN 8.6 g/dL (13.7-17.5); LEFT SHIFT FLG 0 (0-99); LIPEMIA HEMOLYSIS FLAG 80 (0-99); MEAN CELL HEMOGLOBIN 31.9 pg (27.9-34.1); MEAN CELL HEMOGLOBIN CONCENTR. 32.5 g/dL (32.4-36.7); MEAN CELL VOLUME 98.1 fL (81.5-99.8); MEAN PLATELET VOLUME 10.1 fL (8.7-11.7); PLATELET CLUMPS FLAG 0 (0-99); PLATELET COUNT 105 10^3/uL (150-400); RED CELL DISTRIBUTION WIDTH 18.4 % (11.5-15.2)
[2017-03-25 15:29] LABS: ALANINE AMINOTRANSFERASE 100 IU/L (21-72); ALBUMIN 3.6 g/dL (3.5-5.0); ALKALINE PHOSPHATASE 235 IU/L (38-126); ANION GAP 11 mEq/L (8-16); ASPARTATE AMINOTRANSFERASE 263 IU/L (17-59); BILIRUBIN,TOTAL 3.3 mg/dL (0.1-1.4); BILIRUBIN-CONJUGATED 0.6 mg/dL (0.0-0.5); BILIRUBIN-UNCONJUGATED 2.7 mg/dL (0.0-1.1); CALCIUM 9.4 mg/dL (8.5-10.4); CARBON DIOXIDE 25 mEq/l (22-31); CHLORIDE 98 mEq/L (97-110); CREATININE 0.8 mg/dL (0.7-1.3); GLOMERULAR FILTRATION RATE > 60; GLUCOSE 112 mg/dL (70-100); POTASSIUM 3.9 mEq/L (3.5-5.2); SODIUM 134 mEq/L (134-144); TOTAL PROTEIN 6.1 g/dL (6.3-8.2)
[2017-03-25] MEDS ORDERED: ACETAMINOPHEN 325 MG TAB PO ONE (15:39)
--- NOTE | 2017-03-25 16:31 | ASMTCMCOM ---
CM Note CM Note Notes: Pt in [facility] due to hip pain. ED RN Reyna requested C; pt indicated that he was unable to walk. Pt relayed to CM that he wanted to go "back to his campsite". When asked where his campsite was located he stated "he does not like people to know". When asked how he would return to his campsite he indicated that he has a bus pass. Pt declined to have this tech writer schedule follow up appointments with PCP or other provider. After receiving a sandwich the pt. dressed independently and he was able to walk. He was visibly shaking and agitated; refused additional services and indicated he has a friend who will help him with his care. Date Signed: 03/25/2017 04:30 PM Electronically Signed By:Tim Hays LCSW
[2017-03-25] MEDS ORDERED: THIAMINE HCL 100 MG TAB PO ONE (17:16)
[2017-03-25] MEDS ORDERED: OFLOXACIN 0.3% 5ML OPHT DROPS EACHEYE ONE (17:16)
[2017-03-25] MEDS ORDERED: MULTIVITAMINS 1 EACH TAB PO ONE (17:17)
[2017-03-25] MEDS ORDERED: THIAMINE HCL 500 MG in NS 100 ML IV ONE (19:34)
[2017-03-25] MEDS ORDERED: ONDANSETRON DISINTEGRATING 4 MG TAB PO PRN (19:34)
[2017-03-25] MEDS ORDERED: D50W 25 GM/50 ML SYR IVP PRN (19:44)
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
[2017-03-25] MEDS: OXYCODONE/APAP 5/325 TAB PO PRN (20:29)
[2017-03-25] MEDS: chlordiazePOXIDE 25 MG CAP PO SCH (20:29)
[2017-03-25 20:31] LABS: % SATURATION 23 % (20-55); TOTAL IRON BINDING CAPACITY 252 ug/dL (260-490)
[2017-03-25 20:59] LABS: FERRITIN - BCH 49.5 ng/mL (17.9-464.0)
[2017-03-25] MEDS: CYANO/VITAMIN B12 1000 MCG TAB PO SCH (21:14)
[2017-03-25] MEDS: FOLIC ACID 1 MG TAB PO SCH (21:14)
[2017-03-25] MEDS: THIAMINE HCL 500 MG in NS 100 ML IV SCH (21:14)
[2017-03-25] MEDS: LORazepam 1 MG TAB PO PRN (23:11)
[2017-03-26] MEDS: OXYCODONE/APAP 5/325 TAB PO PRN ×3 (00:49→08:38)
[2017-03-26] MEDS: NICOTINE 14 MG/24 HR PATCH TD SCH ×2 (01:06→07:59)
[2017-03-26] MEDS: LORazepam 1 MG TAB PO PRN (04:20)
[2017-03-26] MEDS: THIAMINE HCL 500 MG in NS 100 ML IV SCH ×3 (05:26→21:04)
[2017-03-26 05:49] LABS: % IMMATURE GRANULYOCYTES 0.8 % (0.0-1.1); ABSOLUTE IMMATURE GRANULOCYTES 0.04 10^3/uL (0.00-0.10); ADD DIFF? NO; ADD MORPH? NO; ADD SCAN? NO; ATYPICAL LYMPHOCYTE FLAG 0 (0-99); FRAGMENT RBC FLAG 0 (0-99); HEMATOCRIT 23.6 % (40.0-51.0); HEMOGLOBIN 7.6 g/dL (13.7-17.5); LEFT SHIFT FLG 0 (0-99); LIPEMIA HEMOLYSIS FLAG 80 (0-99); MEAN CELL HEMOGLOBIN 32.2 pg (27.9-34.1); MEAN CELL HEMOGLOBIN CONCENTR. 32.2 g/dL (32.4-36.7); MEAN PLATELET VOLUME 10.5 fL (8.7-11.7); PLATELET CLUMPS FLAG 0 (0-99); PLATELET COUNT 114 10^3/uL (150-400); RED BLOOD CELL COUNT 2.36 10^6/uL (4.40-6.38); RED CELL DISTRIBUTION WIDTH 18.6 % (11.5-15.2)
[2017-03-26 05:54] LABS: ANION GAP 10 mEq/L (8-16); CALCIUM 8.5 mg/dL (8.5-10.4); CARBON DIOXIDE 22 mEq/l (22-31); CHLORIDE 103 mEq/L (97-110); CREATININE 0.7 mg/dL (0.7-1.3); GLOMERULAR FILTRATION RATE > 60; GLUCOSE 75 mg/dL (70-100); MAGNESIUM 1.2 mg/dL (1.6-2.3); POTASSIUM 3.3 mEq/L (3.5-5.2); SODIUM 135 mEq/L (134-144)
[2017-03-26] MEDS: chlordiazePOXIDE 25 MG CAP PO SCH ×3 (07:58→21:04)
[2017-03-26] MEDS: CYANO/VITAMIN B12 1000 MCG TAB PO SCH (07:58)
[2017-03-26] MEDS: FOLIC ACID 1 MG TAB PO SCH (07:58)
[2017-03-26] MEDS: INSULIN LISPRO 100 UNIT/ML SC SCH ×2 (07:59→11:23)
[2017-03-26] MEDS: ENOXAPARIN 40 MG/0.4 ML SYR SC SCH (09:45)
--- NOTE | 2017-03-26 09:51 | HOSPPROG ---
Hospitalist Progress Note Assessment/Plan: DIAGNOSES: -High Suspicion for Wernecke's Encephalopathy: definite ataxia, some confusion and inattentiveness, no nystagmus but unable to adequately assess for occulomotor palsy at present -severe gait instability due to alcohol and related nutritional issues as well as pain -acute encephalopathy -acute alcohol withdrawal without seizure -suspect thiamine deficiency -bilateral hip pain, no skeletal abnormalities seen on CT scan and no hematoma or other specific signs of injury noticed -alcoholism -macrocytic anemia and thrombocytopenia due to alcoholism -homelessness PLANS: -continue high dose thiamine replacement -continue CIWA scoring and tx as indicated, can do on med surg for now -dietary supplement as tolerated -PT OT -watch closely for worsening withdrawal; he could potentially progress and require more intensive management in ICU -will stop insulin at this time, no having enough high sugar to really need it and low sugar could be potentially devastating -social work consult SUBJECTIVE: Patient somewhat confused and inattentive right now not really able to discuss symptoms very readily Per nursing staff has had some mildly elevated scores on CIWA monitor and has been given some benzodiazepine for that He has complained of some pain at the hips with activity OBJECTIVE Vitals reviewed: Stable overall without fever Exam: Mild to moderately somnolent, decreased interaction, mildly disoriented but not anxious and no tremor noted at this time skin warm dry color ok resps not labored lungs clear BSs heart regular abd soft nondistended, bowel sounds present limbs warm, no edema iv site ok Labs: K slightly low sugars mostly good but had one hypoglycemic spell after 2 units given by sliding scale Objective: Vital Signs Temp Pulse Resp BP Pulse Ox 36.6 C 80 18 122/86 H 96 03/26/17 06:58 03/26/17 06:58 03/26/17 06:58 03/26/17 06:58 03/26/17 06:58 Laboratory Results 03/26/17 04:39 03/26/17 04:39 03/25/17 03/26/17 03/27/17 06:59 06:59 06:59 Intake Total 1520 Output Total 850 Balance 670 ICD10 Worksheet Patient Problems: Problems Problem Status Onset Ataxia Acute Inability to ambulate due to hip Acute Leg weakness, bilateral Acute Alcohol intoxication Acute Alcohol intoxication Acute Alcohol withdrawal Acute Altered mental status Acute Cervical strain, acute Acute Contusion of right hip Acute Hyperglycemia Acute
[2017-03-26] MEDS ORDERED: PROTOCOL POTASSIUM 1 DOSE MISC PRN (12:40)
[2017-03-26] MEDS ORDERED: PROTOCOL MAGNESIUM 1 DOSE IV PRN (12:40)
[2017-03-26] MEDS ORDERED: POTASSIUM CL 10 MEQ TAB PO ONE (12:47)
[2017-03-26] MEDS: traMADol 50 MG TAB PO PRN ×2 (13:23→19:59)
[2017-03-26] MEDS ORDERED: MAGNESIUM SULF 2 GM/WATER 50 ML IV ONE (14:30)
[2017-03-26] MEDS: GABAPENTIN 100 MG CAP PO SCH ×2 (15:34→21:04)
[2017-03-26] MEDS ORDERED: LIPASE 6,000/AMYLASE/PROTEASE (CREON) 1 CAP PO SCH (18:00)
[2017-03-26] MEDS: LIPASE 24,000/AMYLASE/PROTEASE (CREON) 1 CAP PO SCH (18:05)
[2017-03-26 19:21] LABS: MAGNESIUM 1.7 mg/dL (1.6-2.3); POTASSIUM 3.5 mEq/L (3.5-5.2)
[2017-03-27] MEDS: traMADol 50 MG TAB PO PRN (03:40)
[2017-03-27] MEDS: THIAMINE HCL 500 MG in NS 100 ML IV SCH ×3 (05:00→22:40)
[2017-03-27 05:13] LABS: % IMMATURE GRANULYOCYTES 0.6 % (0.0-1.1); ABSOLUTE IMMATURE GRANULOCYTES 0.03 10^3/uL (0.00-0.10); ADD DIFF? NO; ADD MORPH? NO; ADD SCAN? NO; ATYPICAL LYMPHOCYTE FLAG 0 (0-99); FRAGMENT RBC FLAG 0 (0-99); LEFT SHIFT FLG 0 (0-99); LIPEMIA HEMOLYSIS FLAG 80 (0-99); MEAN CELL HEMOGLOBIN 32.3 pg (27.9-34.1); MEAN CELL VOLUME 100.8 fL (81.5-99.8); MEAN PLATELET VOLUME 10.1 fL (8.7-11.7); PLATELET CLUMPS FLAG 0 (0-99); PLATELET COUNT 123 10^3/uL (150-400); RED BLOOD CELL COUNT 2.48 10^6/uL (4.40-6.38); RED CELL DISTRIBUTION WIDTH 19.3 % (11.5-15.2)
[2017-03-27 05:34] LABS: ANION GAP 9 mEq/L (8-16); CALCIUM 8.4 mg/dL (8.5-10.4); CARBON DIOXIDE 22 mEq/l (22-31); CHLORIDE 103 mEq/L (97-110); CREATININE 0.7 mg/dL (0.7-1.3); GLOMERULAR FILTRATION RATE > 60; GLUCOSE 182 mg/dL (70-100); MAGNESIUM 1.4 mg/dL (1.6-2.3); POTASSIUM 3.9 mEq/L (3.5-5.2); SODIUM 134 mEq/L (134-144)
[2017-03-27] MEDS: LIPASE 24,000/AMYLASE/PROTEASE (CREON) 1 CAP PO SCH ×3 (08:37→18:25)
[2017-03-27] MEDS: LISINOPRIL 20 MG TAB PO SCH (08:39)
[2017-03-27] MEDS: FOLIC ACID 1 MG TAB PO SCH (08:39)
[2017-03-27] MEDS: GABAPENTIN 100 MG CAP PO SCH ×3 (08:40→22:40)
[2017-03-27] MEDS: CYANO/VITAMIN B12 1000 MCG TAB PO SCH (08:40)
[2017-03-27] MEDS: chlordiazePOXIDE 25 MG CAP PO SCH ×2 (08:41→17:42)
[2017-03-27] MEDS: ENOXAPARIN 40 MG/0.4 ML SYR SC SCH (08:42)
[2017-03-27] MEDS: NICOTINE 14 MG/24 HR PATCH TD SCH (08:42)
[2017-03-27] MEDS ORDERED: MAGNESIUM SULF 2 GM/WATER 50 ML IV ONE (10:11)
[2017-03-27] MEDS ORDERED: POTASSIUM CL 10 MEQ TAB PO ONE (10:31)
[2017-03-27] MEDS: LORazepam 1 MG TAB PO PRN ×2 (10:46→17:43)
--- NOTE | 2017-03-27 17:51 | ASMTCMCOM ---
CM Note CM Note Notes: Pt. is a 51-year-old man who does not have a stable home and lives in a campsite. Pt. admitted due to being quite disabled. 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 Pt. w/ hx. of extensive alcoholism, chronic pancreatitis, Type 2 diabetes, and a current smoker. PT recommending SNF. Pt. has Medicaid benefits. Today Pt. signed ULTC 100 and is open to 30-day Medicaid stay at this time. Hard copy ULTC 100 faxed to [facility] today and SWer verified received. ULTC 100 placed in hard chart. SWer received a vm msg from Maya [facility] Homeless Navigator . Maya is following Pt. in the community. Heather asked Pt. if SWer could speak w/ Maya about his situation. Pt. gave explicit verbal consent to speak kyra/ Maya. Heather called Maya back. Maya states that Pt. has received a Section 8 housing voucher through [facility]. She has assisted him in the past with getting an extension so that he can find an apt. with his voucher. Maya plans to continue to advocate for him to have his voucher remain valid while he works to stabalize his health. Maya shared that Pt. often has auditory hallucinations (hears voices). R/o etiology as mental health issues or alcohol-induced. Pt's PCP is Mingo Méndez MD at [facility]. Per Maya, Pt's ex- Monica Scott provides support to Pt. when she can. She is in a new relationship. Pt.'s mother is also involved per Maya. Pt. gave SWer explicit verbal consent to contact ex- Monica. Note: Pt. goes by "Gonzalo". Pt. interested only in [facility] at this time. Sent referral via [employer] today. Await response. CM to follow for d/c POC. Date Signed: 03/27/2017 05:51 PM Electronically Signed By:Keznie Sahu LCSW
--- NOTE | 2017-03-27 18:09 | HOSPPROG ---
Hospitalist Progress Note Assessment/Plan: assessment: 51-year-old male presents with acute encephalopathy and gait ataxia in the setting of acute alcohol withdrawal Plan: 1. acute encephalopathy. Suspected underlying Wernicke's the setting of chronic alcohol abuse, evidenced by global brain dysfunction characterized as disorientation, confusion, all of which is reportedly an acute change from patient's baseline -most likely secondary to combination of the effects of acute alcohol withdrawal , as well as chronic alcohol abuse -patient's mental status is improving, he is cooperative today and able to discuss discharge options -continue high-dose thiamin will be continued at discharge 2. ataxia. Acute, most likely secondary to alcohol-induced myopathy, with 4/5 proximal muscle strength and gait instability -patient continues to experience gait instability and is unsafe to be discharged without assisted facility care - discussed with patient and social Work, patient is being counseled to go to assisted facility for 30 days, receive rehab, remain alcohol free, and then pursue transitional housing through the homeless skilled nursing 3. Acute alcohol withdrawal. Evidence by tremulousness and tachycardia as well as mental status changes as outlined above, stabilized on scheduled Librium -will discontinue scheduled Librium and gauge as needed Ativan affect 4. Pancytopenia. Secondary to alcohol induced effect on bone marrow, repeat CBC tomorrow Diet. Regular Prophylaxis. High risk patient, Lovenox 40 Code. Full Disposition. Anticipated discharge uncertain, attempting to arrange assisted facility placement Subjective: counseled the patient extensively regarding his discharge location options Objective: Vital Signs Temp Pulse Resp BP Pulse Ox 36.8 C 96 20 96/68 L 93 03/27/17 16:00 03/27/17 16:00 03/27/17 16:00 03/27/17 16:00 03/27/17 16:00 Laboratory Results 03/27/17 04:36 03/26/17 03/27/17 03/28/17 05:59 05:59 05:59 Intake Total 1520 300 Output Total 850 700 Balance 670 300 -700 - Time Spent With Patient Time Spent with Patient: greater than 25 minutes Time Spent with Patient: Greater than 25 minutes spent on this patients care, greater than 50% of time spent counseling, educating, and coordinating care regarding the above mentioned plan. - Physical Exam Constitutional: no apparent distress, not in pain, chronically ill appearing, unkempt, No uncomfortable Cardiovascular: regular rate and rhythym, no murmur, rub, or gallop, No edema Respiratory: no respiratory distress, no rales or rhonchi, clear to auscultation Gastrointestinal: normoactive bowel sounds, distension ( moderate), No tenderness, No guarding Neurologic: AAOx3, sensation intact bilaterally, weakness ( 4/5 motor strength bilateral lower extremity), No asterixes ( tremulous bilateral upper extremity) Psychiatric: anxious, flat affect, other ( concentration /), No agitated ICD10 Worksheet Patient Problems: Problems Problem Status Onset Alcohol withdrawal Acute Alcohol intoxication Acute Altered mental status Acute Contusion of right hip Acute Cervical strain, acute Acute Alcohol intoxication Acute Hyperglycemia Acute Leg weakness, bilateral Acute Inability to ambulate due to hip Acute Ataxia Acute
[2017-03-28] MEDS: ONDANSETRON 4 MG/2 ML VIAL IVP PRN ×2 (01:00→07:54)
[2017-03-28] MEDS: THIAMINE HCL 500 MG in NS 100 ML IV SCH ×3 (06:26→21:00)
[2017-03-28 06:38] LABS: % IMMATURE GRANULYOCYTES 0.6 % (0.0-1.1); ABSOLUTE IMMATURE GRANULOCYTES 0.04 10^3/uL (0.00-0.10); ADD DIFF? NO; ADD MORPH? NO; ADD SCAN? NO; ATYPICAL LYMPHOCYTE FLAG 0 (0-99); FRAGMENT RBC FLAG 10 (0-99); HEMATOCRIT 26.1 % (40.0-51.0); HEMOGLOBIN 8.1 g/dL (13.7-17.5); LEFT SHIFT FLG 0 (0-99); LIPEMIA HEMOLYSIS FLAG 80 (0-99); MEAN CELL HEMOGLOBIN 31.6 pg (27.9-34.1); PLATELET CLUMPS FLAG 0 (0-99); PLATELET COUNT 146 10^3/uL (150-400); RED BLOOD CELL COUNT 2.56 10^6/uL (4.40-6.38); RED CELL DISTRIBUTION WIDTH 19.6 % (11.5-15.2)
[2017-03-28 06:54] LABS: ALANINE AMINOTRANSFERASE 65 IU/L (21-72); ALBUMIN 3.2 g/dL (3.5-5.0); ALKALINE PHOSPHATASE 207 IU/L (38-126); ANION GAP 12 mEq/L (8-16); ASPARTATE AMINOTRANSFERASE 118 IU/L (17-59); BILIRUBIN,TOTAL 1.1 mg/dL (0.1-1.4); CALCIUM 8.4 mg/dL (8.5-10.4); CARBON DIOXIDE 22 mEq/l (22-31); CHLORIDE 100 mEq/L (97-110); CREATININE 0.7 mg/dL (0.7-1.3); GLOMERULAR FILTRATION RATE > 60; GLUCOSE 234 mg/dL (70-100); POTASSIUM 4.3 mEq/L (3.5-5.2); SODIUM 134 mEq/L (134-144); TOTAL PROTEIN 5.6 g/dL (6.3-8.2)
[2017-03-28] MEDS: traMADol 50 MG TAB PO PRN ×2 (08:01→20:57)
[2017-03-28] MEDS: LIPASE 24,000/AMYLASE/PROTEASE (CREON) 1 CAP PO SCH ×3 (08:01→17:39)
[2017-03-28] MEDS: ENOXAPARIN 40 MG/0.4 ML SYR SC SCH (08:03)
[2017-03-28] MEDS: CYANO/VITAMIN B12 1000 MCG TAB PO SCH (08:04)
[2017-03-28] MEDS: LISINOPRIL 20 MG TAB PO SCH (08:04)
[2017-03-28] MEDS: GABAPENTIN 100 MG CAP PO SCH ×3 (08:04→20:58)
[2017-03-28] MEDS: FOLIC ACID 1 MG TAB PO SCH (08:04)
[2017-03-28] MEDS: NICOTINE 14 MG/24 HR PATCH TD SCH (08:07)
[2017-03-28] MEDS ORDERED: THIAMINE HCL 100 MG TAB PO SCH (09:00)
[2017-03-28] MEDS: LORazepam 1 MG TAB PO PRN ×2 (11:51→20:58)
[2017-03-28] MEDS ORDERED: NS 500 ML IV ONE (16:26)
--- NOTE | 2017-03-28 16:31 | HOSPPROG ---
Hospitalist Progress Note Assessment/Plan: assessment: 51-year-old male presents with acute encephalopathy and gait ataxia in the setting of acute alcohol withdrawal, c/b acute hypotension Plan: 1. Acute encephalopathy. Suspected underlying Wernicke's the setting of chronic alcohol abuse, improving -most likely secondary to combination of the effects of acute alcohol withdrawal , as well as chronic alcohol abuse -continue high-dose thiamine, will be continued at discharge 2. Ataxia. Acute, most likely secondary to alcohol-induced myopathy, with 4/5 proximal muscle strength and gait instability -patient continues to experience gait instability and is unsafe to be discharged without group home facility care 3. Acute alcohol withdrawal. Evidence by tremulousness and tachycardia, off librium and gauging ability to manage w/ PO ativan -given ativan today after encounter for ongoing tachycardia 4. Pancytopenia. Secondary to alcohol induced effect on bone marrow, repeat CBC tomorrow 5. Acute hypotension. New problem, further w/u indicated. Unclear if tachycardia is 2/2 withdraw and the hypotension to hypovolemia in setting of poor PO intake today -get vLact to ensure no hypoperfusion today -give 500cc NS bolus, then 150/hr NS ongoing IVF -repeat BMP/CBC in AM -CXR w/o infiltrate (personally interpreted), monitor for any localizing signs of infxn Diet. Regular Prophylaxis. High risk patient, Lovenox 40 Code. Full Disposition. Anticipated discharge pending ULTC for SNF Subjective: patient reports he's fatigued Objective: Vital Signs Temp Pulse Resp BP Pulse Ox 37.3 C 97 14 95/59 L 91 L 03/28/17 15:44 03/28/17 15:45 03/28/17 15:44 03/28/17 15:45 03/28/17 15:45 Laboratory Results 03/28/17 05:57 03/28/17 05:57 03/27/17 03/28/17 03/29/17 05:59 05:59 05:59 Intake Total 300 100 Output Total 1200 Balance 300 -1100 - Physical Exam Constitutional: no apparent distress, not in pain, chronically ill appearing, unkempt, No uncomfortable Eyes: anicteric sclera, EOMI, other (anisocoria w/ L>R) Cardiovascular: tachycardia, No irregularly irregular, No diastolic murmur, No edema Respiratory: no respiratory distress, no rales or rhonchi, clear to auscultation Gastrointestinal: normoactive bowel sounds, soft, non-tender abdomen, no palpable masses Neurologic: sensation intact bilaterally, weakness (4/5 motor bilat LE), other ( AAOx2 (person, place, not time)), No asterixes (but remains tremulous), No facial droop Psychiatric: not anxious, flat affect, other (concentration /), No agitated ICD10 Worksheet Patient Problems: Problems Problem Status Onset Alcohol withdrawal Acute Alcohol intoxication Acute Altered mental status Acute Contusion of right hip Acute Cervical strain, acute Acute Alcohol intoxication Acute Hyperglycemia Acute Leg weakness, bilateral Acute Inability to ambulate due to hip Acute Ataxia Acute
[2017-03-28] MEDS ORDERED: ONDANSETRON DISINTEGRATING 4 MG TAB PO PRN (16:33)
[2017-03-28] MEDS: NS 1,000 ML IV SCH ×2 (18:00→20:37)
[2017-03-28] MEDS: INSULIN LISPRO 100 UNIT/ML SC SCH (18:42)
[2017-03-29] MEDS: LORazepam 1 MG TAB PO PRN ×3 (01:02→23:07)
[2017-03-29] MEDS: ACETAMINOPHEN 325 MG TAB PO PRN ×2 (01:02→18:54)
[2017-03-29] MEDS: NS 1,000 ML IV SCH (03:42)
[2017-03-29] MEDS: traMADol 50 MG TAB PO PRN (03:44)
[2017-03-29 05:48] LABS: % IMMATURE GRANULYOCYTES 0.6 % (0.0-1.1); ABSOLUTE IMMATURE GRANULOCYTES 0.04 10^3/uL (0.00-0.10); ADD DIFF? NO; ADD MORPH? NO; ADD SCAN? NO; ATYPICAL LYMPHOCYTE FLAG 0 (0-99); FRAGMENT RBC FLAG 0 (0-99); HEMATOCRIT 21.8 % (40.0-51.0); LEFT SHIFT FLG 0 (0-99); LIPEMIA HEMOLYSIS FLAG 80 (0-99); MEAN CELL HEMOGLOBIN 32.7 pg (27.9-34.1); MEAN CELL HEMOGLOBIN CONCENTR. 32.1 g/dL (32.4-36.7); MEAN CELL VOLUME 101.9 fL (81.5-99.8); MEAN PLATELET VOLUME 10.4 fL (8.7-11.7); PLATELET CLUMPS FLAG 10 (0-99); PLATELET COUNT 131 10^3/uL (150-400); RED BLOOD CELL COUNT 2.14 10^6/uL (4.40-6.38); RED CELL DISTRIBUTION WIDTH 18.3 % (11.5-15.2)
[2017-03-29] MEDS: THIAMINE HCL 500 MG in NS 100 ML IV SCH (05:54)
[2017-03-29] MEDS: NICOTINE 14 MG/24 HR PATCH TD SCH (06:02)
[2017-03-29 06:16] LABS: ANION GAP 8 mEq/L (8-16); CALCIUM 8.3 mg/dL (8.5-10.4); CARBON DIOXIDE 21 mEq/l (22-31); CHLORIDE 100 mEq/L (97-110); CREATININE 0.7 mg/dL (0.7-1.3); GLOMERULAR FILTRATION RATE > 60; GLUCOSE 258 mg/dL (70-100); POTASSIUM 4.6 mEq/L (3.5-5.2); SODIUM 129 mEq/L (134-144)
[2017-03-29] MEDS ORDERED: INSULIN LISPRO 100 UNIT/ML SC SCH (08:00)
[2017-03-29] MEDS: INSULIN LISPRO 100 UNIT/ML SC SCH ×3 (08:05→17:50)
[2017-03-29] MEDS: CYANO/VITAMIN B12 1000 MCG TAB PO SCH (08:07)
[2017-03-29] MEDS: FOLIC ACID 1 MG TAB PO SCH (08:07)
[2017-03-29] MEDS: GABAPENTIN 100 MG CAP PO SCH (08:07)
[2017-03-29] MEDS: LIPASE 24,000/AMYLASE/PROTEASE (CREON) 1 CAP PO SCH ×3 (08:07→17:49)
[2017-03-29] MEDS: ENOXAPARIN 40 MG/0.4 ML SYR SC SCH (08:08)
[2017-03-29] MEDS: GABAPENTIN 300 MG CAP PO SCH ×3 (12:53→21:25)
[2017-03-29 13:15] LABS: HEMATOCRIT 24.1 % (40.0-51.0); HEMOGLOBIN 7.6 g/dL (13.7-17.5); MEAN CELL HEMOGLOBIN 32.1 pg (27.9-34.1); MEAN CELL HEMOGLOBIN CONCENTR. 31.5 g/dL (32.4-36.7); MEAN CELL VOLUME 101.7 fL (81.5-99.8); RED BLOOD CELL COUNT 2.37 10^6/uL (4.40-6.38); RED CELL DISTRIBUTION WIDTH 17.9 % (11.5-15.2)
--- NOTE | 2017-03-29 13:35 | SOAPPROG ---
SOAP Progress Note Assessment/Plan: assessment: 51-year-old male presents with acute encephalopathy and gait ataxia in the setting of acute alcohol withdrawal Plan: 1. Acute encephalopathy. Suspected underlying Wernicke's the setting of chronic alcohol abuse, improving -most likely secondary to combination of the effects of acute alcohol withdrawal , as well as chronic alcohol abuse -continue b vitamins, nutritional support 2. Ataxia. Acute, most likely secondary to alcohol-induced myopathy, with 4/5 proximal muscle strength and gait instability -patient continues to experience gait instability and is unsafe to be discharged without long-term facility care -pt/ot working with him 3. Acute alcohol withdrawal. Improving -on prns 4. Pancytopenia, normalizing WBC, stable thrombocytopenia, but worsening anemia -repeat Hgb today- stable, low iron -consult Dr Valentin- GI for EGD/colon eval -hemoccult stools -IV iron 5. Acute hypotension. resolved 6. hyponatremia -recheck in AM 7. type 2 DM -add low dose long acting insulin while on diet (will need to hold when NPO for procedures) Diet. low fiber per GI Prophylaxis. High risk patient, Lovenox sq Code. Full PCP------- Disposition. Anticipated discharge pending ULTC for SNF, > 2 mdnts for evaluation of significant anemia per GI 03/29/17 19:16 03/29/17 19:21 03/29/17 19:21 Subjective: Having significant hip pain, requesting more pain meds. No n/v. Feels less shaky. Says had colonoscopy a few yrs ago, not sure where. No CP/SOB/abd pain. Appetite good. Objective: Vital Signs Temp Pulse Resp BP Pulse Ox 98.4 F 90 16 116/80 95 03/29/17 12:00 03/29/17 12:00 03/29/17 12:00 03/29/17 12:00 03/29/17 12:00 Laboratory Results 03/29/17 13:10 03/29/17 05:01 03/28/17 03/29/17 03/30/17 11:59 11:59 11:59 Intake Total 100 2739 Output Total 500 1300 600 Balance -400 1439 -600 - Pending Discharge Pending Discharge Within 48 Hours: No Physical Exam - Physical Exam General Appearance: no apparent distress Respiratory: lungs clear, normal breath sounds Cardiac/Chest: regular rate, rhythm, No edema Abdomen: normal bowel sounds, non-tender, soft, No distended, No guarding, No rebound Neuro/Psych: normal mood/affect, disoriented to time, depressed affect, No disoriented to person, No disoriented to place ICD10 Worksheet Patient Problems: Problems Problem Status Onset Ataxia Acute Inability to ambulate due to hip Acute Leg weakness, bilateral Acute Alcohol intoxication Acute Alcohol intoxication Acute Alcohol withdrawal Acute Altered mental status Acute Cervical strain, acute Acute Contusion of right hip Acute Hyperglycemia Acute
[2017-03-29 13:42] LABS: % SATURATION 6 % (20-55); TOTAL IRON BINDING CAPACITY 272 ug/dL (260-490)
[2017-03-29] MEDS: traMADol 50 MG TAB PO SCH (16:14)
--- NOTE | 2017-03-29 16:54 | SOAPPROG ---
SOAP Progress Note Assessment/Plan: Assessment:Plan: see full dictated consult iron def anemia needs egd and colon eating salad for lunch, will prep tomorrow for Thursday Greg Valentin M.D. 03/29/17 16:52 Objective: Vital Signs Temp Pulse Resp BP Pulse Ox 37.2 C 95 18 148/96 H 97 03/29/17 16:00 03/29/17 16:00 03/29/17 16:00 03/29/17 16:00 03/29/17 16:00 Laboratory Results 03/29/17 13:10 03/29/17 05:01 03/28/17 03/29/17 03/30/17 05:59 05:59 05:59 Intake Total 100 2739 Output Total 1200 1300 600 Balance -1100 1439 -600 ICD10 Worksheet Patient Problems: Problems Problem Status Onset Ataxia Acute Inability to ambulate due to hip Acute Leg weakness, bilateral Acute Alcohol intoxication Acute Alcohol intoxication Acute Alcohol withdrawal Acute Altered mental status Acute Cervical strain, acute Acute Contusion of right hip Acute Hyperglycemia Acute
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
[2017-03-29] MEDS ORDERED: INSULIN GLARGINE 100 UNITS/ML SYRINGE SC SCH (19:15)
[2017-03-29] MEDS: INSULIN GLARGINE 100 UNITS/ML SYRINGE SC SCH (21:25)
[2017-03-30] MEDS: traMADol 50 MG TAB PO SCH ×5 (00:05→23:50)
[2017-03-30] MEDS: ACETAMINOPHEN 325 MG TAB PO PRN (04:52)
[2017-03-30 05:33] LABS: INR 0.94 (0.83-1.16); PROTIME(PATIENT) 12.5 SEC (12.0-15.0)
[2017-03-30 05:34] LABS: HEMATOCRIT 24.9 % (40.0-51.0); HEMOGLOBIN 7.9 g/dL (13.7-17.5); MEAN CELL HEMOGLOBIN 31.5 pg (27.9-34.1); MEAN CELL HEMOGLOBIN CONCENTR. 31.7 g/dL (32.4-36.7); MEAN CELL VOLUME 99.2 fL (81.5-99.8); RED BLOOD CELL COUNT 2.51 10^6/uL (4.40-6.38); RED CELL DISTRIBUTION WIDTH 17.3 % (11.5-15.2)
[2017-03-30 05:39] LABS: ALANINE AMINOTRANSFERASE 55 IU/L (21-72); ALBUMIN 3.3 g/dL (3.5-5.0); ALKALINE PHOSPHATASE 184 IU/L (38-126); ANION GAP 13 mEq/L (8-16); ASPARTATE AMINOTRANSFERASE 85 IU/L (17-59); BILIRUBIN,TOTAL 0.7 mg/dL (0.1-1.4); CALCIUM 8.8 mg/dL (8.5-10.4); CARBON DIOXIDE 23 mEq/l (22-31); CHLORIDE 95 mEq/L (97-110); CREATININE 0.7 mg/dL (0.7-1.3); GLOMERULAR FILTRATION RATE > 60; GLUCOSE 229 mg/dL (70-100); POTASSIUM 4.4 mEq/L (3.5-5.2); SODIUM 131 mEq/L (134-144); TOTAL PROTEIN 5.9 g/dL (6.3-8.2)
[2017-03-30] MEDS: SODIUM FERRIC GLUCONAT/SUCROSE 125 MG in NS 100 ML IV SCH (09:56)
[2017-03-30] MEDS: LIPASE 24,000/AMYLASE/PROTEASE (CREON) 1 CAP PO SCH ×3 (10:05→18:20)
[2017-03-30] MEDS: FOLIC ACID 1 MG TAB PO SCH (10:05)
[2017-03-30] MEDS: GABAPENTIN 300 MG CAP PO SCH ×3 (10:05→21:34)
[2017-03-30] MEDS: CYANO/VITAMIN B12 1000 MCG TAB PO SCH (10:06)
[2017-03-30] MEDS: THIAMINE HCL 100 MG TAB PO SCH (10:06)
[2017-03-30] MEDS: NICOTINE 14 MG/24 HR PATCH TD SCH (10:08)
[2017-03-30] MEDS: ENOXAPARIN 40 MG/0.4 ML SYR SC SCH (11:44)
[2017-03-30] MEDS: INSULIN LISPRO 100 UNIT/ML SC SCH ×3 (12:22→18:16)
--- NOTE | 2017-03-30 14:03 | SOAPPROG ---
SOAP Progress Note Assessment/Plan: Assessment: 51-year-old male presents with acute encephalopathy and gait ataxia in the setting of acute alcohol withdrawal Plan: 1. Acute encephalopathy. Suspected underlying Wernicke's in the setting of chronic alcohol abuse, improving -most likely secondary to combination of the effects of acute alcohol withdrawal , as well as chronic alcohol abuse -continue b vitamins, nutritional support 2. Ataxia. Acute, most likely secondary to alcohol-induced myopathy, with 4/5 proximal muscle strength and gait instability -patient continues to experience gait instability -pt/ot working with him 3. Acute alcohol withdrawal. Improving -on prns 4. Pancytopenia, normalizing WBC, resolved thrombocytopenia, but ongoing anemia -stable, low iron -discussed care with Dr Valentin- GI for EGD/colon eval tomorrow -hemoccult stools neg -IV iron 5. Acute hypotension. resolved 6. hyponatremia -improved 7. type 2 DM -low dose long acting insulin started -SSI Diet- on hold for GI eval Prophylaxis. High risk patient, Lovenox sq Code. Full PCP------- Disposition. Anticipated discharge pending ULTC for SNF, > 2 mdnts for evaluation of significant anemia per GI Subjective: Most concerned about hip pain, 'how to fix hips.' Denies abd pain/cp/sob. Has been walking with PT/OT, more steady. Objective: Vital Signs Temp Pulse Resp BP Pulse Ox 97.9 F 93 18 125/84 H 96 03/30/17 12:00 03/30/17 12:00 03/30/17 12:00 03/30/17 12:00 03/30/17 12:00 Laboratory Results 03/30/17 04:31 03/30/17 04:31 03/29/17 03/30/17 03/31/17 11:59 11:59 11:59 Intake Total 2739 100 Output Total 1300 2525 Balance 1439 -2425 PT 12.5 SEC (12.0-15.0) 03/30/17 04:31 INR 0.94 (0.83-1.16) 03/30/17 04:31 Physical Exam - Physical Exam General Appearance: alert, no apparent distress Respiratory: lungs clear, normal breath sounds, No respiratory distress Cardiac/Chest: regular rate, rhythm, No edema Abdomen: non-tender, soft, No distended, No guarding Skin: warm/dry Neuro/Psych: normal mood/affect, disoriented to time (says 'it's a homeless thing' to not know date/time), No disoriented to person, No disoriented to place ICD10 Worksheet Patient Problems: Problems Problem Status Onset Ataxia Acute Inability to ambulate due to hip Acute Leg weakness, bilateral Acute Alcohol intoxication Acute Alcohol intoxication Acute Alcohol withdrawal Acute Altered mental status Acute Cervical strain, acute Acute Contusion of right hip Acute Hyperglycemia Acute
[2017-03-30] MEDS ORDERED: PEG 3350/NA SULF,BICARB,CL/KCL (GAVILYTE-G) 4000 ML BTL PO ONE (15:02)
--- NOTE | 2017-03-30 15:05 | SOAPPROG ---
SOAP Progress Note Assessment/Plan: Assessment:Plan: 1) iron def anemia - prep for EGD colon 2) Alcohol withdrawal - as per hospitalists 3) LFT's - secondary to his alcohol 03/30/17 15:04 Subjective: cc- iron def anemia in alcoholic pt doing some rehab no specific GI complaints Objective: Vital Signs Temp Pulse Resp BP Pulse Ox 36.6 C 93 18 125/84 H 96 03/30/17 12:00 03/30/17 12:00 03/30/17 12:00 03/30/17 12:00 03/30/17 12:00 Laboratory Results 03/30/17 04:31 03/30/17 04:31 03/29/17 03/30/17 03/31/17 05:59 05:59 05:59 Intake Total 2739 100 Output Total 1300 1825 700 Balance 1439 -1725 -700 PT 12.5 SEC (12.0-15.0) 03/30/17 04:31 INR 0.94 (0.83-1.16) 03/30/17 04:31 Alert CTA S1S2 +BS, soft Laboratory Tests 03/29/17 13:10 Iron 17.0 L TIBC 272 Iron Saturation 6 L ICD10 Worksheet Patient Problems: Problems Problem Status Onset Ataxia Acute Inability to ambulate due to hip Acute Leg weakness, bilateral Acute Alcohol intoxication Acute Alcohol intoxication Acute Alcohol withdrawal Acute Altered mental status Acute Cervical strain, acute Acute Contusion of right hip Acute Hyperglycemia Acute
--- NOTE | 2017-03-30 16:29 | ASMTCMCOM ---
CM Note CM Note Notes: Spoke with Keven at [facility], confirmed all ULTC-100 paperwork received. Peyton with [facility] #[phone], will be out today or tomorrow to evaluate patient for SNF. Spoke with Salma at [facility] regarding referral, Salma to review and follow-up with Case Management. Viv with [facility] on floor today to complete LTC Medicaid [place]. Updated MD. [facility] will follow. Date Signed: 03/30/2017 04:28 PM Electronically Signed By:Cyndy Pagan RN
[2017-03-30] MEDS: INSULIN GLARGINE 100 UNITS/ML SYRINGE SC SCH (21:38)
[2017-03-31] MEDS: ACETAMINOPHEN 325 MG TAB PO PRN (03:51)
[2017-03-31 05:21] LABS: ANION GAP 11 mEq/L (8-16); CALCIUM 8.4 mg/dL (8.5-10.4); CARBON DIOXIDE 21 mEq/l (22-31); CHLORIDE 97 mEq/L (97-110); CREATININE 0.6 mg/dL (0.7-1.3); GLOMERULAR FILTRATION RATE > 60; GLUCOSE 250 mg/dL (70-100); POTASSIUM 3.6 mEq/L (3.5-5.2); SODIUM 129 mEq/L (134-144)
[2017-03-31] MEDS: traMADol 50 MG TAB PO SCH ×4 (05:54→21:31)
[2017-03-31] MEDS: CYANO/VITAMIN B12 1000 MCG TAB PO SCH (09:47)
[2017-03-31] MEDS: THIAMINE HCL 100 MG TAB PO SCH (09:47)
[2017-03-31] MEDS: FOLIC ACID 1 MG TAB PO SCH (09:49)
[2017-03-31] MEDS: GABAPENTIN 300 MG CAP PO SCH ×3 (09:49→21:31)
[2017-03-31] MEDS: NICOTINE 14 MG/24 HR PATCH TD SCH (09:50)
[2017-03-31] MEDS: SODIUM FERRIC GLUCONAT/SUCROSE 125 MG in NS 100 ML IV SCH (10:29)
[2017-03-31] MEDS ORDERED: MAGNESIUM CITRATE 300 ML BOTTLE PO ONE (11:15)
[2017-03-31] MEDS: LIPASE 24,000/AMYLASE/PROTEASE (CREON) 1 CAP PO SCH ×3 (13:32→19:23)
[2017-03-31] MEDS: INSULIN LISPRO 100 UNIT/ML SC SCH ×3 (13:32→19:22)
[2017-03-31] MEDS ORDERED: LORazepam 2 MG/ML INJ IVP ONE (14:35)
--- NOTE | 2017-03-31 14:44 | SOAPPROG ---
SOAP Progress Note Assessment/Plan: Assessment: 51-year-old male presents with acute encephalopathy and gait ataxia in the setting of acute alcohol withdrawal Plan: 1. Acute encephalopathy. Suspected underlying Wernicke's in the setting of chronic alcohol abuse, improving -most likely secondary to combination of the effects of acute alcohol withdrawal , as well as chronic alcohol abuse -continue b vitamins, nutritional support 2. Ataxia. Acute, most likely secondary to alcohol-induced myopathy, with 4/5 proximal muscle strength and gait instability -patient continues to experience gait instability -pt/ot working with him, still unstable/recommending SNF/rehab 3. Acute alcohol withdrawal. acute resolved -on prns -informed RN that he 'drank to not hear the voices' -BH/psych eval needed 4. Pancytopenia, normalizing WBC, resolved thrombocytopenia, but ongoing anemia -stable, low iron -discussed care with Dr Valentin- today EGD/colon eval -hemoccult stools neg -IV iron x 3 ordered 5. Acute hypotension. resolved 6. hyponatremia -improved 7. type 2 DM -low dose long acting insulin started -SSI Diet- on hold for GI eval Prophylaxis. High risk patient, Lovenox sq Code. Full PCP------- Disposition. Anticipated discharge pending ULTC for SNF Subjective: Denies CP/SOB/abd pain today. Hungry- having scopes today. No specific other concerns today. Objective: Vital Signs Temp Pulse Resp BP Pulse Ox 97.8 F 63 16 135/74 H 99 03/31/17 11:53 03/31/17 11:53 03/31/17 11:53 03/31/17 11:53 03/31/17 11:53 Laboratory Results 03/30/17 04:31 03/31/17 04:45 03/30/17 03/31/17 04/01/17 11:59 11:59 11:59 Intake Total 100 3982 Output Total 2525 400 Balance -2425 3582 PT 12.5 SEC (12.0-15.0) 03/30/17 04:31 INR 0.94 (0.83-1.16) 03/30/17 04:31 Physical Exam - Physical Exam General Appearance: alert, no apparent distress Respiratory: lungs clear, normal breath sounds Cardiac/Chest: regular rate, rhythm, No edema Abdomen: normal bowel sounds, soft, No distended, No guarding Skin: warm/dry Neuro/Psych: normal mood/affect, No speech abnormalities ICD10 Worksheet Patient Problems: Problems Problem Status Onset Ataxia Acute Inability to ambulate due to hip Acute Leg weakness, bilateral Acute Alcohol intoxication Acute Alcohol intoxication Acute Alcohol withdrawal Acute Altered mental status Acute Cervical strain, acute Acute Contusion of right hip Acute Hyperglycemia Acute
--- NOTE | 2017-03-31 14:54 | ASMTCMCOM ---
CM Note CM Note Notes: CM left a msg for Sonu at [facility] to inquire about when she would be stopping by to complete the ULTC-100. Pt is having a colonoscopy procedure today. CM met w/ pt for dispo planning. Pt is not interested in going to a SNF. Pt reports that he has a housing voucher. CM to follow to see if he will consider a SNF (as it is recommended by PT/OT). Date Signed: 03/31/2017 02:54 PM Electronically Signed By:GERMAN Su
[2017-03-31] MEDS ORDERED: LR 1,000 ML IV ONE (15:21)
--- NOTE | 2017-03-31 16:56 | PDANEPAE ---
ANE History of Present Illness thrombocytopenia in seting of etoh abuse ANE Past Medical History - Cardiovascular History Hx Hypertension: Yes Hx Arrhythmias: No Hx Chest Pain: No Hx Coronary Artery / Peripheral Vascular Disease: No Hx CHF / Valvular Disease: No Hx Palpitations: No - Pulmonary History Hx COPD: No Hx Asthma/Reactive Airway Disease: No Hx Recent Upper Respiratory Infection: No Hx Oxygen in Use at Home: No Hx Sleep Apnea: No Sleep Apnea Screening Result - Last Documented: Negative - Endocrine History Hx Diabetes: Yes Hypothyroid: No Hyperthyroid: No Obesity: no - Renal History Hx Renal Disorders: No - Neurological & Psychiatric Hx Hx Neurological and Psychiatric Disorders: Yes Neurological / Psychiatric History 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 - Chronic Pain History Chronic Pain: Yes ANE Review of Systems Review of systems is: negative Review of Systems: - Exercise capacity Exercise capacity: >=4 METS ANE Patient History - Allergies Allergies/Adverse Reactions: milk thistle (Silybum marianum) Allergy (Verified 03/30/17 14:55) - Home Medications Home Medications: Lipase 6,000/Amylase/Protease [Creon 6 (*)] 4 cap PO TIDMEAL 01/20/17 [Last Taken 2 Weeks Ago ~03/11/17] Gabapentin [Neurontin 100 MG (*)] 100 mg PO TID 03/25/17 [Last Taken 1 Month Ago ~02/22/17] Insulin Detemir [Levemir] 6 unit SQ 15 03/25/17 [Last Taken 2 Weeks Ago ~] Insulin Lispro [Humalog] 5 unit SQ BID@,18 03/25/17 [Last Taken 2 Weeks Ago ~ 03/11/17] Lisinopril [Zestril 20 mg (*)] 20 mg PO DAILY 03/25/17 [Last Taken Unknown] - NPO status NPO Status: no food or drink >8 hours NPO Since - Liquids (Date): 03/31/17 NPO Since - Liquids (Time): 10:30 NPO Since - Solids (Date): 03/30/17 NPO Since - Solids (Time): 12:00 - Anes Hx Anes Hx: no prior problems - Smoking Hx Smoking Status: Current every day smoker - Alcohol Use Alcohol Use: Heavy ANE Labs/Vital Signs - Labs Result Diagrams: 03/30/17 04:31 03/31/17 04:45 - Vital Signs Blood Pressure: 149/85 Heart Rate: 74 Respiratory Rate: 16 O2 Sat (%): 97 Height: 160.02 cm Weight: 68.039 kg ANE Physical Exam - Airway Mallampati Score: Class 2 - Pulmonary Pulmonary: no respiratory distress - Cardiovascular Cardiovascular: regular rate and rhythym - ASA Status ASA Status: III ANE Anesthesia Plan Anesthesia Plan: GA with mask
[2017-03-31] MEDS ORDERED: PROPOFOL/EMULSION 500 MG/50 ML BOTTLE IV ONE (17:06)
[2017-03-31] MEDS ORDERED: LIDOCAINE 2% 5 ML SDV ONE (17:06)
--- NOTE | 2017-03-31 17:48 | POSTOPPROG ---
Post Op Note Date of Operation: 03/31/17 Surgeon: Greg Valentin Anesthesiologist: Cecilio Anesthesia: Other (Specify) (IV general) Pre-op Diagnosis: iron def anemia eval for cancer, varices, ulcers Post-op Diagnosis: variant duodenum, nml esophagus, no varices, small transverse polyp Indication: iron def anemia Procedure: egd and bx colon and bx Findings: nml esoph, stomach, variatn duodenum bx, small 4mm polyp TC Inf/Abcess present in the surg proc area at time of surgery?: No EBL: Minimal (few ml) Total fluids administered: 100ml LR Complications: none immediate
[2017-03-31] MEDS ORDERED: ONDANSETRON 4 MG/2 ML VIAL IVP PRN (17:49)
[2017-03-31] MEDS ORDERED: PROMETHAZINE HCL 25 MG/ML INJ IVP PRN (17:49)
[2017-03-31] MEDS ORDERED: NALOXONE HCL 0.4 MG/ML INJ IVP PRN (17:49)
--- NOTE | 2017-03-31 17:50 | POSTANESTH ---
Post Anesthetic Evaluation Cardiovascular Status: Normal, Stable Respiratory Status: Normal, Stable Level of Consciousness/Mental Status: Mildly Sleepy, Arousable Pain Control: Adequate, Prn Tx Ordered Nausea/Vomiting Control: Adequate, Prn Tx Ordered Complications Possibly Related to Anesthesia: None Noted
--- NOTE | 2017-03-31 17:56 | GIREPORT ---
[facility] - Endoscopy Department Patient Name: Von Mae Procedure Date: 03/31/2017 5:08 PM Patient Type: Inpatient Attending / CHRIS Physician: Danyell Slaughter Procedure: Upper GI endoscopy Indications: Iron deficiency anemia Providers: Doni Valentin MD Medicines: Sedation Required Anesthesia Staff Assistance Complications: No immediate complications. Estimated blood loss: Minimal. Findings: The examined esophagus was normal. The entire examined stomach was normal. Scattered mild mucosal variance characterized by erythema and altered texture was found in the entire duodenum. Biopsies for histology were t aken with a cold forceps for evaluation of celiac disease. Estimated blood l oss was minimal. The exam was otherwise without abnormality. Estimated Blood Loss: Estimated blood loss was minimal. Post Op Diagnosis: - Normal esophagus. - Normal stomach. - Mucosal variant in the duodenum. Biopsied. - The examination was otherwise normal. Recommendation: - Await pathology results. - Perform a colonoscopy today. - Return patient to [facility] for ongoing care. - Continue present medications. - Thank you for allowing me to help in your patient's care. Do not hesi bartholomew to call with any questions. Attending Participation: I personally performed the entire procedure. Homero Marion M.D Doni Valentin MD 03/31/2017 5:55:56 PM Number of Addenda: 0 Note Initiated On: 03/31/2017 5:08 PM [id number]
--- NOTE | 2017-03-31 18:02 | GIREPORT ---
[facility] - Endoscopy Department Patient Name: Von Mae Procedure Date: 03/31/2017 5:06 PM Patient Type: Inpatient Attending / CHRIS Physician: Danyell Slaughter Procedure: Colonoscopy Indications: Iron deficiency anemia Providers: Doni Valentin MD Medicines: Sedation Required Anesthesia Staff Assistance IV general Complications: No immediate complications. Estimated blood loss: Minimal. Findings: The digital rectal exam was normal. The terminal ileum appeared normal. A 3 mm polyp was found in the mid transverse colon. The polyp was semi-sessile. The polyp was removed with a piecemeal technique using a cold biopsy forceps. Resection and retrieval were complete. Estimated blood loss was minimal. Non-bleeding internal hemorrhoids were found during retroflexion. The exam was otherwise without abnormality. Estimated Blood Loss: Estimated blood loss was minimal. Post Op Diagnosis: - The examined portion of the ileum was normal. - One 3 mm polyp in the mid transverse colon, removed piecemeal using a cold biopsy forceps. Resected and retrieved. - Non-bleeding internal hemorrhoids. - The examination was otherwise normal. Recommendation: - Await pathology results. - If the pathology report reveals adenomatous tissue, then repeat the colonoscopy for surveillance in 5 years. - Resume regular diet. - Return patient to hospital [facility] for ongoing care. - Thank you for allowing me to help in your patient's care. Do not hesi bartholomew to call with any questions. Attending Participation: I personally performed the entire procedure. Homero Marion M.D Doni Valentin MD 03/31/2017 6:01:57 PM Number of Addenda: 0 Note Initiated On: 03/31/2017 5:06 PM Total Procedure Duration Time 0 hours 18 minutes 3 seconds [email or web address]
[2017-03-31] MEDS: ENOXAPARIN 40 MG/0.4 ML SYR SC SCH (19:21)
[2017-03-31] MEDS: LORazepam 1 MG TAB PO PRN (21:31)
[2017-03-31] MEDS: INSULIN GLARGINE 100 UNITS/ML SYRINGE SC SCH (22:50)
[2017-04-01 03:13] VITALS: O2SAT 96
--- NOTE | 2017-04-01 03:23 | GPN ---
[f rep st] PROCEDURE NOTE DATE OF PROCEDURE: 03/31/2017 PROCEDURES PERFORMED: 1. Esophagogastroduodenoscopy and biopsy. 2. Colonoscopy and biopsy polypectomy. INDICATIONS: Iron-deficiency anemia. PREOPERATIVE DIAGNOSIS: Rule out varices. Rule out ulcers. Rule out polyps. Rule out cancer. POSTOPERATIVE DIAGNOSES: 1. Normal esophagus with no varices. 2. Normal stomach without varices. 3. Variant duodenum, query celiac sprue status post biopsy. 4. A 3 mm transverse colon polyp removed by cold biopsy piecemeal fashion. 5. Normal terminal ileum. 6. Otherwise normal colonoscopy. INFORMED CONSENT: I had a detailed discussion with the patient regarding the procedure, alternatives , benefits, and risks including bleeding, perforation, infection, risk of medication. Informed conse nt was signed and witnessed. COMPLICATIONS: None immediate. MEDICATIONS USED: IV general, as per Dr. Pierce. DESCRIPTION OF PROCEDURE: EGD: After adequate sedation, the patient remained in left lateral decubi tus position, and then I inserted the forward viewing upper endoscope via oropharynx and down the eso phagus. The esophageal mucosa was normal. There was no evidence of esophagitis. There was no evide nce of esophageal varices. The endoscope was then advanced into the stomach. The stomach was normal without ulcers or masses. Retroflexion examination was performed and revealed no gastric varices. The endoscope was un-retroflexed and advanced through a normal-looking pylorus. The duodenal bulb an d sweep had a variant. There was a some abnormal texture to the mucosa. Biopsies were obtained for evaluation of celiac sprue. There was no evidence of ulcerations or masses. The endoscope was compl etely withdrawn, confirming the above findings. The patient tolerated the procedure well and was rep ositioned for colonoscopy. Colonoscopy: The patient remained in left lateral decubitus position. A visual and digital anorecta l examination was performed. The video colonoscope was inserted via the rectum and advanced under vi sualization to the terminal ilium. Upon withdrawal the instrument, careful attention paid to mucosal detail. The prep was very good. There was a 3 mm polyp in the transverse colon that was removed in total by cold biopsy forceps. Retroflexion examination in the rectum revealed some internal hemorrh oids. The endoscope was completely withdrawn, confirming the above findings. The patient tolerated the procedure well and was transferred to the recovery room in satisfactory condition. IMPRESSION: 1. Normal esophagus and stomach with no evidence of varices. 2. 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 3. A 3 mm transverse colon polyp removed in total by cold biopsy. 4. Internal hemorrhoids. 5. Otherwise normal exams. RECOMMENDATIONS: 1. Follow up pathology. 2. Repeat colonoscopy in 5 years if adenoma. 3. Transferred to floor for ongoing care. 4. Alcohol abstinence lifelong. 5. Further recommendations to follow results of above and clinical course. Thank you for allowing me to participate in the patient's healthcare. Do not hesitate to call me morena h any questions. /[id number]/MODL
[2017-04-01] MEDS: traMADol 50 MG TAB PO SCH ×2 (05:30→11:31)
[2017-04-01 05:38] LABS: % IMMATURE GRANULYOCYTES 0.6 % (0.0-1.1); ABSOLUTE IMMATURE GRANULOCYTES 0.03 10^3/uL (0.00-0.10); ADD DIFF? NO; ADD MORPH? NO; ADD SCAN? NO; ATYPICAL LYMPHOCYTE FLAG 40 (0-99); FRAGMENT RBC FLAG 10 (0-99); HEMATOCRIT 25.9 % (40.0-51.0); HEMOGLOBIN 8.1 g/dL (13.7-17.5); LEFT SHIFT FLG 0 (0-99); LIPEMIA HEMOLYSIS FLAG 80 (0-99); MEAN CELL HEMOGLOBIN 30.9 pg (27.9-34.1); MEAN CELL HEMOGLOBIN CONCENTR. 31.3 g/dL (32.4-36.7); MEAN CELL VOLUME 98.9 fL (81.5-99.8); PLATELET CLUMPS FLAG 10 (0-99); PLATELET COUNT 292 10^3/uL (150-400); RED BLOOD CELL COUNT 2.62 10^6/uL (4.40-6.38); RED CELL DISTRIBUTION WIDTH 17.7 % (11.5-15.2)
[2017-04-01 05:54] LABS: ANION GAP 11 mEq/L (8-16); CALCIUM 8.9 mg/dL (8.5-10.4); CARBON DIOXIDE 22 mEq/l (22-31); CHLORIDE 99 mEq/L (97-110); CREATININE 0.7 mg/dL (0.7-1.3); GLOMERULAR FILTRATION RATE > 60; GLUCOSE 276 mg/dL (70-100); POTASSIUM 4.5 mEq/L (3.5-5.2); SODIUM 132 mEq/L (134-144)
[2017-04-01] MEDS: NICOTINE 14 MG/24 HR PATCH TD SCH (08:10)
[2017-04-01] MEDS: THIAMINE HCL 100 MG TAB PO SCH (08:11)
[2017-04-01] MEDS: FOLIC ACID 1 MG TAB PO SCH (08:11)
[2017-04-01] MEDS: CYANO/VITAMIN B12 1000 MCG TAB PO SCH (08:11)
[2017-04-01] MEDS: LIPASE 24,000/AMYLASE/PROTEASE (CREON) 1 CAP PO SCH ×2 (08:12→11:30)
[2017-04-01] MEDS: GABAPENTIN 300 MG CAP PO SCH (08:12)
[2017-04-01] MEDS: INSULIN LISPRO 100 UNIT/ML SC SCH ×2 (08:15→11:31)
[2017-04-01] MEDS: ENOXAPARIN 40 MG/0.4 ML SYR SC SCH (08:16)
[2017-04-01] MEDS ORDERED: INSULIN GLARGINE 100 UNITS/ML SYRINGE SC SCH (09:00)
[2017-04-01 09:15] VITALS: RESP 12
[2017-04-01] MEDS: INSULIN GLARGINE 100 UNITS/ML SYRINGE SC SCH (11:31)
[2017-04-01 12:37] VITALS: BP 98/79; PULSE 104; TEMP 99
--- NOTE | 2017-04-01 12:38 | SOAPPROG ---
SOAP Progress Note Assessment/Plan: Assessment:Plan: 1) iron def anemia - prep for EGD colon 2) Alcohol withdrawal - as per hospitalists 3) LFT's - secondary to his alcohol 03/30/17 15:04 04/01/17 12:35 EGD colon yesterday small polyp in TC f/u path colon 5 years 1) Iron def - likely form nutrition and some gi blood loss. nothing worrisome on scopes, no varices 2) Dispo - refusing SNF, d/c today 3) Alcoholism - rec lifelong abstinence , I suspect he will be drinking again this afternoon Subjective: CC- iron def anemia s/p egd and colon with small polyp pt wanting to leave Objective: Vital Signs Temp Pulse Resp BP Pulse Ox 36.6 C 72 12 131/86 H 96 04/01/17 08:00 04/01/17 08:00 04/01/17 08:00 04/01/17 08:00 04/01/17 08:00 Laboratory Results 04/01/17 04:44 04/01/17 04:44 03/31/17 04/01/17 04/02/17 05:59 05:59 05:59 Intake Total 3982 50 Output Total 1100 Balance 2882 50 PT 12.5 SEC (12.0-15.0) 03/30/17 04:31 INR 0.94 (0.83-1.16) 03/30/17 04:31 alert CTA S1S2 +BS , soft tender no r/g ICD10 Worksheet Patient Problems: Problems Problem Status Onset Ataxia Acute Inability to ambulate due to hip Acute Leg weakness, bilateral Acute Alcohol intoxication Acute Alcohol intoxication Acute Alcohol withdrawal Acute Altered mental status Acute Cervical strain, acute Acute Contusion of right hip Acute Hyperglycemia Acute
--- NOTE | 2017-04-01 12:57 | ASMTCMCOM ---
CM Note CM Note Notes: SWer went to see Pt. in his room today with friend, Cordell. (This SWer happens to know Cordell from his previous admission to [facility]). Pt. confirms that he does not want to go to a alf for a LTC Medicaid stay. Plans to d/c to the street today with Cordell as supportive friend. Pt. gave SWer explicit verbal consent to speak with his Court Navigator, Maya Varma again today . Maya tried to arrange a ride with the Homless Outreach Team (HOT) officers, but unable to reach them. Gave RN cab voucher to get Pt. and Cordell to [facility] on and where Pt. wants to fill his medications. Maya plans to set up f/u [facility] for Pt. for tomorrow with Dr. Méndez. SWer asked CM process assistant to get pants and a lightweight jacket for Pt. SWer gave to Pt. who was grateful. At Pt's request, Pt. d/c'ed to the street today. Date Signed: 04/01/2017 12:56 PM Electronically Signed By:Kenzie Sahu LCSW
--- NOTE | 2017-04-01 17:29 | ASDISCHSUM ---
Discharge Information Plan Status:Homeless/Care Home Medically Cleared to Leave: Discharge Date:04/01/2017 01:38 PM CM D/C Disposition: ADT D/C Disposition:Home, Routine, Self-Care Projected Discharge Date:04/01/2017 11:00 AM Transportation at D/C:Cab Voucher Discharge Delay Reason: Follow-Up Date:04/01/2017 11:00 AM Discharge Slot: Final Diagnosis: Placement Information Referral Type:*Long-Term/SNF Referral ID:[facility]-[id number] Provider Name: Address 1: Phone Number: Address 2: Fax Number: City: Selection Factors: State: Patient Contact Information Contact Name:ANALI Relationship: Address:[address] [place] [address] [address] Work Phone: Vinh:[facility] Phone: [facility]/Zip Code:[place] [address] Email: Financial Information Financial Class: Primary Plan Desc:MEDICA[place] Primary Plan Number:[id number] Secondary Plan Desc: Secondary Plan Number: Assessment Information [facility] CM Progress Note CM Note CM Note Notes: Pt in FED from [facility] due to hip pain. ED RN Reyna hardy C; pt indicated that he was unable to walk. Pt relayed to that he wanted to go "back to his campsite". When asked where his campsite was located he stated "he does not like people to know". When asked how he would return to his campsite he indicated that he has a bus pass. Pt declined to have this press writer schedule follow up appointments with PCP or other provider. After receiving a sandwich the pt. dressed independently and he was able to walk. He was visibly shaking and agitated; refused additional services and indicated he has a friend who will help him with his care. Date Signed: 03/25/2017 04:30 PM Electronically Signed By:Tim Hays LCSW [facility] CM Progress Note CM Note CM Note Notes: Pt. is a 51-year-old man who does not have a stable home and lives in a campsite. Pt. admitted due to being quite disabled. 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 Pt. w/ hx. of extensive alcoholism, chronic pancreatitis, Type 2 diabetes, and a current smoker. PT recommending SNF. Pt. has Medicaid benefits. Today Pt. signed ULTC 100 and is open to 30-day Medicaid stay at this time. Hard copy ULTC 100 faxed to [facility] today and Heather verified received. ULTC 100 placed in hard chart. Daltonr received a vm msg from Maya Varma [facility] Homeless Navigator . Maya is following Pt. in the community. Heather asked Pt. if SWer could speak w/ Maya about his situation. Pt. gave explicit verbal consent to speak kyra/ Maya. Heather called Maya back. Maya states that Pt. has received a Section 8 housing voucher through [facility]. She has assisted him in the past with getting an extension so that he can find an apt. with his voucher. Maya plans to continue to advocate for him to have his voucher remain valid while he works to stabalize his health. Maya shared that Pt. often has auditory hallucinations (hears voices). R/o etiology as mental health issues or alcohol-induced. Pt's PCP is Mingo Méndez MD at [facility]. Per Maya, Pt's ex- Monica Scott provides support to Pt. when she can. She is in a new relationship. Pt.'s mother is also involved per Maya. Pt. gave SWer explicit verbal consent to contact ex- Monica. Note: Pt. goes by "Gonzalo". Pt. interested only in [facility] at this time. Sent referral via [employer] today. Await response. CM to follow for d/c POC. Date Signed: 03/27/2017 05:51 PM Electronically Signed By:Kenzie Sahu LCSW [facility] Progress Note CM Note CM Note Notes: Spoke with Keven at [facility], confirmed all ULTC-100 paperwork received. Peyton with [facility] #[phone], will be out today or tomorrow to evaluate patient for SNF. Spoke with Salma at [facility] regarding referral, Salma to review and follow-up with Case Management. Viv with [employer] on floor today to complete LTC Medicaid Yamila. Updated MD. MOSHE will follow. Date Signed: 03/30/2017 04:28 PM Electronically Signed By:Cyndy Pagan RN [facility] CM Progress Note CM Note CM Note Notes: MOSHE left a msg for Sonu at [facility] to inquire about when she would be stopping by to complete the ULTC-100. Pt is having a colonoscopy procedure today. CM met w/ pt for dispo planning. Pt is not interested in going to a SNF. Pt reports that he has a housing voucher. CM to follow to see if he will consider a SNF (as it is recommended by PT/OT). Date Signed: 03/31/2017 02:54 PM Electronically Signed By:GERMAN Su [facility] CM Progress Note CM Note CM Note Notes: SWer went to see Pt. in his room today with friend, Cordell. (This SWer happens to know Cordell from his previous admission to [facility]). Pt. confirms that he does not want to go to a detention for a LTC Medicaid stay. Plans to d/c to the street today with Cordell as supportive friend. Pt. gave Daltonr explicit verbal consent to speak with his Court Navigator, Maya Varma again today . Maya tried to arrange a ride with the [employer] (HOT) officers, but unable to reach them. Gave RN cab voucher to get Pt. and Cordell to [facility] on and where Pt. wants to fill his medications. Maya plans to set up f/u [facility] for Pt. for tomorrow with Dr. Méndez. Heather asked CM stores assistant to get pants and a lightweight jacket for Pt. Heather gave to Pt. who was grateful. At Pt's request, Pt. d/c'ed to the street today. Date Signed: 04/01/2017 12:56 PM Electronically Signed By:Kenzie Sahu LCSW Intervention Information
--- NOTE | 2017-04-06 14:09 | GDS ---
[f rep st] DISCHARGE SUMMARY CONSULTATIONS: Gastroenterology. PROCEDURES: Esophagogastroduodenoscopy and colonoscopy on 03/31/2017. HISTORY OF PRESENT ILLNESS: Please see previously dictated note by Dr. Pruitt. ADMISSION DIAGNOSES: 1. Ataxia. 2. Alcohol abuse. 3. Normocytic anemia. 4. Diabetes, insulin dependent. 5. Chronic peripheral neuropathy. 6. Acute alcoholic hepatitis. DISCHARGE DIAGNOSES: 1. Ataxia. 2. Alcohol abuse. 3. Normocytic anemia. 4. Diabetes, insulin dependent. 5. Chronic peripheral neuropathy. 6. Acute alcoholic hepatitis. 7. Homelessness. HOSPITAL COURSE: The patient was admitted to the hospital because of worsening ataxia and difficulty walking. He has known chronic peripheral neuropathy and bilateral hip pain, but felt that his symptoms were acutely worse than normal. He was admitted to the hospital for further evaluation. He had a noncontrast head CT which did not show any acute bleeding or stroke. He had laboratory studies, which showed markedly elevated AST and ALT, along with a low hemoglobin of 8.6, and thrombocytopenia of 105. A chest x-ray was done, which did not show any acute changes. He was admitted to the hospital and treated for possible Wernicke syndrome with IV thiamin and B12. He was placed on an alcohol detox protocol with scheduled Librium and CIWA p.r.n. He was evaluated by Physical Therapy and Occupational Therapy, who recommended ongoing therapy at a SNF at discharge. Initially, he was willing to consider SNF placement and case management was working on placement. However, on the day of discharge, he declined SNF placement and instead wanted to be discharged to the community. Of note, he is homeless, but does have a director of casework that has been contacted throughout his stay also to coordinate care. Over the course of his hospitalization, his gait and stability did improve, and on the day of discharge he was ambulating with a cane. PT/OT worked with him regarding ongoing safety maneuvers that he could do at home, especially related to carrying his backpack and getting up from a seated position. Normocytic anemia. Hemoglobin was 8.0 at admission and did slowly decrease throughout his stay to a nik of 7.0. A Gastroenterology consult was requested , and Dr. Valentin evaluated the patient. He recommended EGD and colonoscopy ( per patient were done a few years ago, but not recently). These were performed on 03/31/2017. Multiple biopsies were done, but normal esophagus and stomach without varices, and only 1 colon polyp was noted. Anemia felt likely to be secondary to chronic alcohol intake, poor oral intake, and anemia of chronic disease from poorly controlled diabetes. Iron level was noted to be initially 57, but a repeat was 17. IV iron therapy was given x3. At time of discharge, his last hemoglobin was 8.1 and stable. Hemoccults were done, which were negative. Recommended Hematology/Oncology evaluation as an outpatient, which can be arranged through his primary care provider at [facility]. Acute alcoholic hepatitis. AST was 263 at admission. On the , it was noted to be 85. Have strongly encouraged the patient to continue with complete abstinence from alcohol, and multiple outpatient resources were discussed with him. He should follow up with his primary care provider and consider [facility] also if he is willing. Type 2 diabetes, insulin-dependent. Accu-Cheks were done throughout his stay and he was treated with sliding scale insulin and scheduled insulin. He was quite resistant to any change to his chronic insulin regimen and said that he would "work it out" with Dr. Méndez. I spoke with [facility] prior to his discharge to ensure that he had refills of detemir and Humalog, which they confirmed. Peripheral neuropathy. Was continued with gabapentin, and also the addition of B vitamins. DISCHARGE MEDICATIONS: Home medications were confirmed with [facility] and should be continued as previously prescribed by Dr. Méndez. The only addition order was vitamin B complex. FOLLOWUP: He should follow up with Dr. Méndez within a few days of discharge. He should follow up with Dr. Valentin within 2 weeks to review his biopsies. He should return at any time if he has worsening balance, chest pain, shortness of breath, dark stools, or blood in vomit or stools, or any other concerns. /[id number]/MODL MTDD
== END 2017-04-01 13:38 | disposition home or self-care (01) | DRG 92 ==
LOC: EDUNIT# → F3E 20:20
PROVIDERS: ADMIT Hospitalist; ATTEND Family Medicine
PROC: 0DBL8ZX Excision of Transverse Colon, Via Natural or Artificial Opening Endoscopic, Diagnostic (ICD-10-PCS; principal; 2017-03-31 16:15)
PROC: 0DB98ZX Excision of Duodenum, Via Natural or Artificial Opening Endoscopic, Diagnostic (ICD-10-PCS; principal; 2017-03-31 16:15)
DX: G72.1 Alcoholic myopathy (principal); R26.0 Ataxic gait; F10.26 Alcohol dependence with alcohol-induced persisting amnestic disorder; F10.230 Alcohol dependence with withdrawal, uncomplicated; E87.1 Hypo-osmolality and hyponatremia; K86.1 Other chronic pancreatitis; D61.818 Other pancytopenia; M25.551 Pain in right hip; M25.552 Pain in left hip; G62.9 Polyneuropathy, unspecified; E11.9 Type 2 diabetes mellitus without complications; D69.6 Thrombocytopenia, unspecified; D50.9 Iron deficiency anemia, unspecified; I95.9 Hypotension, unspecified; Z59.0 Homelessness
CPT/HCPCS: 82607-90; 97116-GP; 97162-GP; 97166-GO; 97530-GO; 97530-GP; 97535-GO; J1650; J1815; J2060; J2405; J2704; J2916; J3411

== ENCOUNTER 2017-04-08 20:17 | Emergency (ER) | payer MEDICAID ==
[2017-04-08 20:23] VITALS: TEMP 98.1
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
[2017-04-08] MEDS ORDERED: NS 1,000 ML IV ONE (20:31)
[2017-04-08 20:38] VITALS: RESP 16
--- NOTE | 2017-04-08 20:52 | CPEKG ---
Heart Rate: 96 RR Interval: 625 P-R Interval: 148 QRSD Interval: 82 QT Interval: 368 QTC Interval: 465 P [place]: 70 QRS [place]: 77 T Wave [place]: 74 EKG Severity - NORMAL ECG - EKG Impression: SINUS RHYTHM Electronically Signed By: Tom Pacheco 10-Apr-2017 09:14:16
[2017-04-08 21:11] LABS: % IMMATURE GRANULYOCYTES 0.4 % (0.0-1.1); ABSOLUTE IMMATURE GRANULOCYTES 0.02 10^3/uL (0.00-0.10); ADD DIFF? NO; ADD MORPH? NO; ADD SCAN? NO; ATYPICAL LYMPHOCYTE FLAG 40 (0-99); FRAGMENT RBC FLAG 0 (0-99); HEMATOCRIT 33.8 % (40.0-51.0); HEMOGLOBIN 10.6 g/dL (13.7-17.5); LEFT SHIFT FLG 0 (0-99); LIPEMIA HEMOLYSIS FLAG 80 (0-99); MEAN CELL HEMOGLOBIN 31.3 pg (27.9-34.1); MEAN CELL HEMOGLOBIN CONCENTR. 31.4 g/dL (32.4-36.7); MEAN CELL VOLUME 99.7 fL (81.5-99.8); PLATELET CLUMPS FLAG 0 (0-99); PLATELET COUNT 415 10^3/uL (150-400); RED BLOOD CELL COUNT 3.39 10^6/uL (4.40-6.38)
[2017-04-08 21:24] LABS: ANION GAP 14 mEq/L (8-16); CALCIUM 9.1 mg/dL (8.5-10.4); CARBON DIOXIDE 21 mEq/l (22-31); CHLORIDE 102 mEq/L (97-110); ETHANOL SERUM 267 mg/dL (0-10); GLOMERULAR FILTRATION RATE > 60; GLUCOSE 249 mg/dL (70-100); POTASSIUM 3.7 mEq/L (3.5-5.2); SODIUM 137 mEq/L (134-144)
[2017-04-08 21:37] VITALS: BP 92/52; PULSE 90; O2SAT 93
== END 2017-04-08 22:14 | disposition home or self-care (01) ==
DX: R55 Syncope and collapse (principal); F10.129 Alcohol abuse with intoxication, unspecified; E11.9 Type 2 diabetes mellitus without complications; I10 Essential (primary) hypertension; F17.200 Nicotine dependence, unspecified, uncomplicated; E86.9 Volume depletion, unspecified; Z79.4 Long term (current) use of insulin
CPT/HCPCS: G0480

== ENCOUNTER 2017-04-15 19:17 | Inpatient (IN) | payer MEDICAID ==
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
[2017-04-15] MEDS ORDERED: NS 1,000 ML IV ONE (22:25)
[2017-04-15] MEDS ORDERED: FOLIC ACID 1 MG TAB PO ONE (22:26)
[2017-04-15] MEDS ORDERED: THIAMINE HCL 500 MG in NS 100 ML IV ONE (22:26)
--- NOTE | 2017-04-15 23:01 | CPEKG ---
Heart Rate: 86 RR Interval: 698 QRSD Interval: 86 QT Interval: 392 QTC Interval: 469 QRS [place]: 86 EKG Severity - ABNORMAL ECG - EKG Impression: ACCELERATED JUNCTIONAL RHYTHM Electronically Signed By: Anant Ness 16-Apr-2017 07:14:16
[2017-04-15 23:04] LABS: ADD DIFF? NO; ADD MORPH? NO; ADD SCAN? NO; ATYPICAL LYMPHOCYTE FLAG 0 (0-99); FRAGMENT RBC FLAG 0 (0-99); HEMATOCRIT 33.1 % (40.0-51.0); HEMOGLOBIN 10.8 g/dL (13.7-17.5); LEFT SHIFT FLG 0 (0-99); LIPEMIA HEMOLYSIS FLAG 80 (0-99); MEAN CELL HEMOGLOBIN 30.7 pg (27.9-34.1); MEAN CELL HEMOGLOBIN CONCENTR. 32.6 g/dL (32.4-36.7); MEAN PLATELET VOLUME 9.4 fL (8.7-11.7); PLATELET CLUMPS FLAG 20 (0-99); PLATELET COUNT 201 10^3/uL (150-400); RED BLOOD CELL COUNT 3.52 10^6/uL (4.40-6.38); RED CELL DISTRIBUTION WIDTH 17.3 % (11.5-15.2)
[2017-04-15 23:11] LABS: INR 0.98 (0.83-1.16); PROTIME(PATIENT) 12.9 SEC (12.0-15.0)
[2017-04-15 23:12] LABS: APTT 31.6 SEC (23.0-38.0)
[2017-04-15 23:17] LABS: ALANINE AMINOTRANSFERASE 49 IU/L (21-72); ALBUMIN 4.2 g/dL (3.5-5.0); ALKALINE PHOSPHATASE 164 IU/L (38-126); ANION GAP 17 mEq/L (8-16); ASPARTATE AMINOTRANSFERASE 109 IU/L (17-59); BILIRUBIN,TOTAL 0.9 mg/dL (0.1-1.4); BILIRUBIN-CONJUGATED 0.4 mg/dL (0.0-0.5); BILIRUBIN-UNCONJUGATED 0.5 mg/dL (0.0-1.1); CALCIUM 8.7 mg/dL (8.5-10.4); CARBON DIOXIDE 22 mEq/l (22-31); CHLORIDE 105 mEq/L (97-110); CREATININE 0.7 mg/dL (0.7-1.3); GLOMERULAR FILTRATION RATE > 60; GLUCOSE 115 mg/dL (70-100); POTASSIUM 4.1 mEq/L (3.5-5.2); SODIUM 144 mEq/L (134-144)
[2017-04-15 23:19] LABS: COLOR YELLOW; LEUKOCYTE ESTERASE,URINE NEGATIVE (NEGATIVE); NITRITE,URINE NEGATIVE (NEGATIVE)
[2017-04-15 23:20] LABS: MUCUS 2+ /lpf (NONE-1+)
[2017-04-15 23:43] LABS: ETHANOL SERUM 389 mg/dL (0-10)
[2017-04-16] MEDS ORDERED: ONDANSETRON 4 MG/2 ML VIAL IVP PRN (00:38)
[2017-04-16] MEDS ORDERED: diphenhydrAMINE 25 MG CAP PO PRN (00:38)
[2017-04-16 02:23] LABS: CK-MB INTERPRETATION NEGATIVE (NEGATIVE)
[2017-04-16 02:26] LABS: CREATINE KINASE-MB FRACTION 3.47 ng/mL (0.00-3.19)
[2017-04-16] MEDS: NS 1,000 ML IV SCH ×3 (03:19→22:09)
--- NOTE | 2017-04-16 04:53 | GHP ---
[f rep st] HISTORY AND PHYSICAL DATE OF ADMISSION: 04/15/2017 DATE OF SERVICE: 04/16/2017 Patient without PCP. SOURCE: Patient provides some history, but is only a fair to poor historian and answers most questions with "I don't know, I don't know." CHIEF COMPLAINT: Lower extremity weakness. HISTORY OF PRESENT ILLNESS: This is a 51-year-old gentleman with past medical history of chronic alcohol abuse with sequelae of chronic pancreatitis, history of alcoholic hepatitis, withdrawal seizure in the past, who presents to the emergency department with complaints of lower extremity weakness per the ER provider. At time of my interview, patient reports that he is not sure how he got here, or what happened prior to arrival. He thinks he may have fallen, as he does have a bloody nose and when inquired he states that he cannot remember what happened. The patient denies any chest pain, palpitation, shortness of breath. No recent fevers, chills, nausea, vomiting, abdominal pain, or diarrhea. Patient reports some mild epigastric abdominal pain, which is baseline. He denies any headache, and has chronic neuropathy in his lower extremities. Per the ER provider, patient with complaints of inability to walk. He was apparently transported by private vehicle and left at the front of the hospital where he required a wheelchair to maneuver him to the emergency department. The patient has complaints of chronic numbness, tingling, and lower extremity weakness. He does utilize a cane. He reports a recent fall with head injury, possibly, but he really cannot recall. The patient reports drinking a pint of vodka on a daily basis. He denies any use of illicit or prescribed medications in abusive fashion. However, when asked this and noted that his U-tox was positive for opiates and benzos, he was not able to give an answer. REVIEW OF SYSTEMS: Negative, except as noted above in HPI. ALLERGIES: Milk thistle. HOME MEDICATIONS: Patient is noncompliant. He states that he is supposed to be on insulin, lisinopril, pancreatic enzymes and gabapentin, but not currently taking as he states [place] runs out of his medicines all the time. PAST MEDICAL HISTORY: Significant for alcohol dependence with a sequelae of history of alcoholic hepatitis, pancreatitis, withdrawal seizures, coagulopathy , osteoarthritis, bilateral lower extremity weakness related to neuropathy, diabetes type 2, and history of humerus fracture and clavicle fracture. PAST SURGICAL HISTORY: The patient is limited historian, but states at some point, he was hospitalized for a perforated viscus requiring surgical drainage in a 20+ day hospital stay remotely. FAMILY HISTORY: Significant for diabetes. SOCIAL HISTORY: Patient currently homeless. He drinks 1 pint of vodka on a daily basis. He reports last drink was earlier in the day. He smokes half pack per day tobacco and denies any illicit drugs or use of prescription drugs not assigned to him. He does use a cane for ambulation. CODE STATUS: Patient does not want to answer. PHYSICAL EXAM: VITAL SIGNS: Upon arrival in the emergency department, temperature 36.7, blood pressure 122/78, heart rate 76, respiratory rate 16, O2 saturation 94% on room air. Current vitals, heart rate at bedside 114, blood pressure 115/66, pulse ox 96% on 2 L by nasal cannula, temperature 36.8, respiratory rate 15. GENERAL: No acute distress. Adult gentleman, who appears older than stated age. Is asleep in bed, was woken to name. He appears slightly undernourished and thin. SKIN: Patient with a small abrasion and dried blood on the end of his nose. Photodamage to the skin on his face. Patient with some excoriations on his hands. Exam further limited by the patient's clothing and minimal cooperation during interview. HEAD: Otherwise normocephalic, atraumatic with exception of small abrasion and dry blood on patient's nose. EYES: Extraocular muscles grossly intact. No scleral icterus or conjunctival injection. Pupils are equal, round, with decreased activity to light bilaterally and symmetric. ENT: No nasal discharge. Mucous membranes appear slightly dry. Dentition is in fair to poor condition. NECK: Supple. Trachea midline. CV: Tachycardic with regular rhythm. No murmurs, rubs, or gallops appreciated. RESPIRATORY: Lungs are clear to auscultation bilaterally. No wheezes, rales, or rhonchi. Unlabored breathing. ABDOMEN: Positive bowel sounds. Soft. Patient complains of some mild tenderness to palpation in the epigastric region without any rebound or guarding. : No Rico catheter in place. No suprapubic tenderness to palpation. MUSCULOSKELETAL: Generalized weakness, but moves all extremities while lying in bed. NEURO: Grossly nonfocal. Patient with minimal cooperation during exam , which was further deferred. PSYCH: Patient affect is quite flat. Responses are limited to 1-2 word answers. The patient appears disinterested in interview. LABORATORY STUDIES: 1. WBC 3.93, H and H 10.8 and 33.1, MCV 94.0, platelet count 201. 2. PT is 12.9, INR 0.98, PTT is 31.6. 3. Sodium is 144, potassium 4.1, chloride is 105, CO2 is 22, BUN 13, creatinine is 0.7, anion gap of 17, glucose 115, calcium 8.7, total bilirubin 0.9, ALT 49, AST 109, alkaline phosphatase 164. CK 280, CK-MB 3.47, total protein 7.0, albumin 4.2, lipase 37. 4. UA: Specific gravity 1.026 with pH of 5.0, 2+ protein, trace ketones, 1+ blood, 2.0 urobilinogen, negative leuk esterase, 3-5 RBCs, 1-3 WBCs, trace epithelial cells, hyaline casts 5-15, mucus 2+, glucose 2+. 5. U-tox with alcohol level 389 mg/dL, positive opiates, positive benzos. 6. EKG showing accelerated junctional rhythm with rate in the 80s. Per reading , does appear sinus with some underlying artifact, no acute ST changes. QTc is 469. 7. CT head: Nothing acute. Moderate supratentorial volume loss for patient age. Vascular calcifications present, unchanged. Ventricles normal size, given degree of volume loss. 8. Chest x-ray: Lungs are clear, nothing acute. 9. Pelvis x-ray: Nothing acute. No significant degenerative changes. ASSESSMENT AND PLAN: This is a 51-year-old gentleman with history of chronic alcohol abuse, who presents with complaints of lower extremity weakness. Differential diagnosis including alcohol intoxication versus neuropathy with history of diabetes that is uncontrolled, as well as in setting of alcoholism, vitamin B12 deficiency, Wernicke's or polypharmacy in the setting of positive UA for benzos and opiates with elevated alcohol level. Physical Therapy/ Occupational Therapy has been consulted. CT head was negative for any evidence of acute infarct. Patient without any current focal findings, but again exam is limited secondary to patient's willingness to participate. We will need to reassess in the morning. The patient was also of note, recently admitted to the hospital for very similar findings, discharged on 04/01/2017 with lower extremity weakness. The patient will be placed on fall precautions. Will be given some intravenous fluid hydration. 1. Alcohol abuse. The patient not interested in cessation at this time. CIWA protocol has been ordered, although patient is currently still intoxicated. 2. Diabetes type 2. Patient's blood sugar at this time is acceptable. We will place him on ADA diet, insulin p.r.n. at a low dose. 3. Anemia, likely of chronic disease in the setting of chronic alcohol abuse. The patient will be receiving multivitamin, thiamine and folate. 4. Transaminitis, likely related to alcohol consumption. We will continue to monitor liver function tests. 5. Polysubstance abuse. Patient denies. U-tox positive for benzos and opiates. Will try to minimize usage. 6. Coagulopathies, likely related to chronic history of alcohol abuse. Will monitor hemoglobin and hematocrit. No evidence of active bleeding at this time. 7. Fall. The patient has been placed on fall precautions. No evidence of acute cerebrovascular accident, likely multifactorial including alcohol abuse, neuropathy. 8. Fluids, electrolyte, nutrition. Continue intravenous fluids overnight. Replace electrolytes if needed. ADA diet as tolerated. 9. Prophylaxis. Sequential compression devices and Lovenox. 10. Cor status. Will remain full at this time by default as patient refuses to consider. 11. Disposition. Patient has been admitted to observation on the medical floor. Awaiting Physical Therapy/Occupational Therapy recommendations. Case Management has been consulted to assist with resources. /[id number]/MODL MTDD
[2017-04-16] MEDS: LORazepam 1 MG TAB PO PRN ×5 (05:16→22:54)
[2017-04-16 05:27] LABS: % IMMATURE GRANULYOCYTES 0.3 % (0.0-1.1); ABSOLUTE IMMATURE GRANULOCYTES 0.01 10^3/uL (0.00-0.10); ADD DIFF? NO; ADD MORPH? NO; ADD SCAN? NO; ATYPICAL LYMPHOCYTE FLAG 20 (0-99); FRAGMENT RBC FLAG 0 (0-99); HEMATOCRIT 27.7 % (40.0-51.0); HEMOGLOBIN 8.9 g/dL (13.7-17.5); LEFT SHIFT FLG 0 (0-99); LIPEMIA HEMOLYSIS FLAG 80 (0-99); MEAN CELL HEMOGLOBIN 30.1 pg (27.9-34.1); MEAN CELL HEMOGLOBIN CONCENTR. 32.1 g/dL (32.4-36.7); MEAN CELL VOLUME 93.6 fL (81.5-99.8); MEAN PLATELET VOLUME 9.6 fL (8.7-11.7); PLATELET CLUMPS FLAG 0 (0-99); PLATELET COUNT 179 10^3/uL (150-400); RED BLOOD CELL COUNT 2.96 10^6/uL (4.40-6.38); RED CELL DISTRIBUTION WIDTH 17.2 % (11.5-15.2)
[2017-04-16 05:40] LABS: ALANINE AMINOTRANSFERASE 44 IU/L (21-72); ALBUMIN 3.3 g/dL (3.5-5.0); ALKALINE PHOSPHATASE 135 IU/L (38-126); ANION GAP 15 mEq/L (8-16); ASPARTATE AMINOTRANSFERASE 95 IU/L (17-59); BILIRUBIN,TOTAL 0.8 mg/dL (0.1-1.4); CARBON DIOXIDE 20 mEq/l (22-31); CHLORIDE 105 mEq/L (97-110); CREATININE 0.7 mg/dL (0.7-1.3); GLOMERULAR FILTRATION RATE > 60; GLUCOSE 149 mg/dL (70-100); MAGNESIUM 1.4 mg/dL (1.6-2.3); SODIUM 140 mEq/L (134-144); TOTAL PROTEIN 5.8 g/dL (6.3-8.2)
[2017-04-16] MEDS ORDERED: MENTHOL/CAMPHOR 222 ML BOTTLE TP PRN (06:01)
[2017-04-16] MEDS: GABAPENTIN 100 MG CAP PO PRN ×2 (06:26→22:54)
[2017-04-16] MEDS: ENOXAPARIN 40 MG/0.4 ML SYR SC SCH (09:41)
[2017-04-16] MEDS: NICOTINE 14 MG/24 HR PATCH TD PRN (09:42)
[2017-04-16] MEDS: MULTIVITAMINS 1 EACH TAB PO SCH (09:43)
[2017-04-16] MEDS: FOLIC ACID 1 MG TAB PO SCH (09:43)
--- NOTE | 2017-04-16 11:44 | ASMTCMCOM ---
MOSHE Note MOSHE Note Notes: Pt. is a 51-year-old man who goes by "Gonzalo" who was last d/c'ed on 04/01/17 from [facility] to the street. Pt. did not want to go to [facility] stay at the time. Will re-visit this admission. Pt. admitted this time w/ lower extremity weakness. Hx. chronic pancreatitis, alcoholic hepatitis, chronic alcoholism, chronic neuropathy of the lower extremities, and Type 2 diabetes. Per H&P, Pt. not interested in stopping drinking at this time. SWer went to see Pt. in room alone today. Pt. seemed to remember SWer. Pt. was quite tremulous. Wondered where his friend's backpack might be. Pt. states friend came with him in ambulance. We discussed calling security for backpack when friend visits. SWer let Pt. know that SWer will come back tomorrow to discuss [facility] option. Pt. gave SWer explicit verbal consent to speak with Maya Varma Court Navigator about his situation. SWer called Maya who is very concerned about Pt. States he appears to be incontinent of bowel when she sees him in the community setting. Per Maya, Pt. w/ history of delusions and hallucinations. Maya would like to be kept in the loop regarding Pt. Maya states Pt. might be interested in DNR status. SWer to let know to have this conversation w/ Pt. SWer will follow up w/ Pt. tomorrow on establishing MDPOA. ELLEN/MOSHE to follow. Date Signed: 04/16/2017 11:43 AM Electronically Signed By:Kenzie Sahu LCSW
--- NOTE | 2017-04-16 14:35 | HOSPPROG ---
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, per my review of his previous notes and physical exam -counseled the patient that sobriety is the mainstay and treatment, recommend ongoing sobriety as well as long-term facility placement with therapy modalities -discussed with social work, though continue to student loan counselor and support the patient Objective: Vital Signs Temp Pulse Resp BP Pulse Ox 36.8 C 88 17 142/91 H 98 04/16/17 11:38 04/16/17 11:38 04/16/17 11:38 04/16/17 11:38 04/16/17 11:38 Laboratory Results 04/16/17 04:48 04/16/17 04:48 04/15/17 04/16/17 04/17/17 05:59 05:59 05:59 Intake Total 1674 Output Total 350 Balance 1324 PT 12.9 SEC (12.0-15.0) 04/15/17 22:47 INR 0.98 (0.83-1.16) 04/15/17 22:47 ICD10 Worksheet Patient Problems: Problems Problem Status Onset Alcohol withdrawal Acute Alcohol intoxication Acute Altered mental status Acute Contusion of right hip Acute Cervical strain, acute Acute Alcohol intoxication Acute Hyperglycemia Acute Leg weakness, bilateral Acute Inability to ambulate due to hip Acute Ataxia Acute
--- NOTE | 2017-04-16 17:00 | PDMN ---
Medical Necessity Medical necessity: change to IP; los>2mn for ongoing signs of acute etoh withdrawal, etoh induced myopathy; continue CIWA, PT/OT; hx withdrawal sz, DM2, pancreatitis, coagulopathy; per progress note 04/16/17
[2017-04-16] MEDS ORDERED: DICLOFENAC SODIUM 1% 100 GM GEL TP PRN (17:24)
[2017-04-16] MEDS: INSULIN LISPRO 100 UNIT/ML SC SCH (18:12)
[2017-04-16] MEDS: LIPASE 6,000/AMYLASE/PROTEASE (CREON) 1 CAP PO SCH ×2 (18:12→22:03)
[2017-04-16] MEDS: LIDOCAINE 5% 1 EA PATCH TD SCH (18:14)
[2017-04-16] MEDS: LISINOPRIL 20 MG TAB PO SCH (18:15)
[2017-04-16] MEDS: GABAPENTIN 100 MG CAP PO SCH (22:03)
[2017-04-16] MEDS: PATCH REMOVAL 1 EA PATCH TD SCH (22:04)
[2017-04-17 05:30] LABS: % IMMATURE GRANULYOCYTES 0.2 % (0.0-1.1); ABSOLUTE IMMATURE GRANULOCYTES 0.01 10^3/uL (0.00-0.10); ADD DIFF? NO; ADD MORPH? NO; ADD SCAN? NO; ATYPICAL LYMPHOCYTE FLAG 0 (0-99); FRAGMENT RBC FLAG 60 (0-99); HEMATOCRIT 27.1 % (40.0-51.0); HEMOGLOBIN 8.8 g/dL (13.7-17.5); LEFT SHIFT FLG 0 (0-99); LIPEMIA HEMOLYSIS FLAG 80 (0-99); MEAN CELL HEMOGLOBIN 30.3 pg (27.9-34.1); MEAN CELL HEMOGLOBIN CONCENTR. 32.5 g/dL (32.4-36.7); MEAN CELL VOLUME 93.4 fL (81.5-99.8); MEAN PLATELET VOLUME 10.1 fL (8.7-11.7); PLATELET CLUMPS FLAG 0 (0-99); PLATELET COUNT 169 10^3/uL (150-400); RED CELL DISTRIBUTION WIDTH 16.7 % (11.5-15.2)
[2017-04-17 05:50] LABS: ALANINE AMINOTRANSFERASE 40 IU/L (21-72); ALBUMIN 3.1 g/dL (3.5-5.0); ALKALINE PHOSPHATASE 151 IU/L (38-126); ASPARTATE AMINOTRANSFERASE 87 IU/L (17-59); BILIRUBIN,TOTAL 2.6 mg/dL (0.1-1.4); CARBON DIOXIDE 23 mEq/l (22-31); CHLORIDE 102 mEq/L (97-110); CREATININE 0.7 mg/dL (0.7-1.3); GLOMERULAR FILTRATION RATE > 60; GLUCOSE 130 mg/dL (70-100); MAGNESIUM 1.4 mg/dL (1.6-2.3); SODIUM 134 mEq/L (134-144); TOTAL PROTEIN 5.8 g/dL (6.3-8.2)
[2017-04-17 05:53] LABS: TROPONIN I < 0.012 ng/mL (0.000-0.034)
[2017-04-17 06:04] LABS: ANION GAP 9 mEq/L (8-16); POTASSIUM 3.7 mEq/L (3.5-5.2)
[2017-04-17 06:12] LABS: BILIRUBIN-CONJUGATED 0.2 mg/dL (0.0-0.5); BILIRUBIN-UNCONJUGATED 2.4 mg/dL (0.0-1.1)
[2017-04-17] MEDS: NS 1,000 ML IV SCH (06:32)
[2017-04-17] MEDS: LIPASE 6,000/AMYLASE/PROTEASE (CREON) 1 CAP PO SCH ×6 (08:36→20:05)
[2017-04-17] MEDS: FOLIC ACID 1 MG TAB PO SCH (08:36)
[2017-04-17] MEDS: LISINOPRIL 20 MG TAB PO SCH (08:36)
[2017-04-17] MEDS: LORazepam 1 MG TAB PO PRN ×3 (08:36→20:05)
[2017-04-17] MEDS: ENOXAPARIN 40 MG/0.4 ML SYR SC SCH (08:37)
[2017-04-17] MEDS: INSULIN GLARGINE 100 UNIT/ML VIAL SC SCH (08:37)
[2017-04-17] MEDS: LIDOCAINE 5% 1 EA PATCH TD SCH (08:38)
[2017-04-17] MEDS: GABAPENTIN 100 MG CAP PO PRN ×2 (08:44→08:46)
[2017-04-17] MEDS: MULTIVITAMINS 1 EACH TAB PO SCH (08:44)
[2017-04-17] MEDS: GABAPENTIN 100 MG CAP PO SCH ×3 (08:47→22:28)
[2017-04-17] MEDS: INSULIN LISPRO 100 UNIT/ML SC SCH ×3 (08:53→17:53)
[2017-04-17] MEDS ORDERED: MAGNESIUM SULF 1 GM/DEXTROSE 100 ML IV ONE (08:56)
[2017-04-17] MEDS: NS W/ 20 KCl/L 1,000 ML IV SCH ×2 (09:13→22:30)
[2017-04-17] MEDS: PANTOPRAZOLE SODIUM 40 MG in NS 100 ML IV SCH ×2 (10:47→20:05)
[2017-04-17 11:27] LABS: % SATURATION 93 % (20-55); TOTAL IRON BINDING CAPACITY 293 ug/dL (260-490)
--- NOTE | 2017-04-17 17:11 | HOSPPROG ---
Hospitalist Progress Note Assessment/Plan: Assessment: 51-year-old male presents with acute alcohol intoxication and acute alcohol-induced myopathy, complicated by acute alcohol withdrawal Plan: 1. Alcohol intoxication. Acute, alcohol level greater than 300, contributing to his alcohol induced myopathy 2. Acute alcohol withdrawal. Evidenced by tachycardia, tremulousness, weakness , anxiety -continue with CIWA scoring, add additional Ativan -continue on seizure precautions 3. Alcohol induced myopathy. Acute, recurrent, educated patient that this will continue happening if he continues to drink alcohol, evidenced by diffuse generalized weakness, rendering him unable to safely ambulate or complete ADLs -patient had been scheduled for [facility] facility during his last hospitalization, and he suddenly left against better judgment, leaving with his cane and returning to his homeless situation so he could continue to consume alcohol -continue to provide social work counseling -continue daily physical and occupational assessment 4. Anemia. Acute, new problem this provider, further workup indicated. Fecal occult blood positive, most likely secondary to gastritis in the setting of alcohol consumption, iron levels drawn and not demonstrating any iron deficient component -no indication for transfusion at this time -continue to monitor his bowel movements -provide IV PPI twice daily and transition to oral tomorrow if hemoglobin remains stable, hemodynamically unstable, bowel movements normalized color 5. Hypokalemia. IV potassium and magnesium 6. Hip pain. Acute, reviewed outside records including 03/25/2017 CT of his pelvis demonstrating normal anatomy, no abnormalities -x-rays of his pelvis demonstrate no acute fracture, personally interpreted -patient most likely has osteoarthritis and to be treated supportively with Lidoderm patch, pain medication as needed the 7. Chest pain. Acute, no rib fracture on rib scan, abated without any intervention, potentially secondary to gastritis, order Maalox as needed, ppi as above Diet. Regular as tolerated Prophylaxis. High risk patient, avoid pharmacologic given bleeding, SCDs Code. Previously listed as do not resuscitate, patient may have rescinded this but this is somewhat unclear, this should be an ongoing conversation with the patient as he becomes more lucid and interactive following alcohol withdrawal Disposition. Anticipated discharge is uncertain, pending resolution of conditions outlined above. Subjective: Ongoing hip pain, dark bowel movement Objective: Vital Signs Temp Pulse Resp BP Pulse Ox 36.9 C 123 H 16 139/86 H 96 04/17/17 15:20 04/17/17 15:20 04/17/17 15:20 04/17/17 15:20 04/17/17 15:20 Laboratory Results 04/17/17 04:52 04/17/17 04:52 04/16/17 04/17/17 04/18/17 05:59 05:59 05:59 Intake Total 1700 Output Total 1500 Balance 200 PT 12.9 SEC (12.0-15.0) 04/15/17 22:47 INR 0.98 (0.83-1.16) 04/15/17 22:47 - Physical Exam Constitutional: no apparent distress, chronically ill appearing, uncomfortable, unkempt Cardiovascular: tachycardia, No systolic murmur, No irregularly irregular, No edema Respiratory: no respiratory distress, no rales or rhonchi, clear to auscultation Gastrointestinal: normoactive bowel sounds, soft, non-tender abdomen, no palpable masses, No distension Musculoskeletal: other (Tenderness in bilateral hips) Neurologic: AAOx3, sensation intact bilaterally, weakness (4/5 motor bilateral lower extremity), No asterixes (Bilateral tremulousness upper and lower extremities) Psychiatric: not encephalopathic, thought process linear, flat affect, No agitated ICD10 Worksheet Patient Problems: Problems Problem Status Onset Alcohol withdrawal Acute Alcohol intoxication Acute Altered mental status Acute Contusion of right hip Acute Cervical strain, acute Acute Alcohol intoxication Acute Hyperglycemia Acute Leg weakness, bilateral Acute Inability to ambulate due to hip Acute Ataxia Acute
--- NOTE | 2017-04-17 17:26 | ASMTCMCOM ---
CM Note CM Note Notes: SWer met w/ Pt. again today in room alone. Pt. still not able to articulate that he wants to go to a Medicaid LTC skilled nursing stay for some 30-days. Pt. states he has Court dates to go to and other obligations that he is quite fixated on. Pt. does acknowledge that his homelessness is not conducive to him doing better, "cold and concrete do not help your legs do better". Pt. did feel that [facility] was managing his alcohol withdrawal well. Pt. also states fentanyl patch is very much helping his hip pain. SWer gave bedside RN Pt's feedback. SWer brought up in conversation who Pt. may want as his medical decision maker if he was not able to make is own decisions. Had a brief conversation that he would like his ex- Monica Scott to be his decision maker ideally, but she is now remarried and wants to move on. SWer informed Pt. that Maya Varma, Court Navigator was willing to be his decision-maker only if he wanted it. Pt. became overwhelmed by conversation. MDPOA form not yet completed. Maya Varma plans to visit Pt. this evening at [facility]. Left MDPOA paperwork with engine builder should he want to complete form. Also, let engine builder know Pt. might change his mind about skilled nursing and CM would need to do [facility] 100 if Pt. is indeed interested in LTC. Daltonr called RN MOSHE who is covering floor tomorrow. Updated her on case. CM to follow for d/c POC. Date Signed: 04/17/2017 05:26 PM Electronically Signed By:Kenzie Sahu LCSW
[2017-04-17] MEDS: NICOTINE 14 MG/24 HR PATCH TD PRN (20:06)
[2017-04-17] MEDS: PATCH REMOVAL 1 EA PATCH TD SCH (20:15)
[2017-04-17] MEDS: LORazepam 2 MG/ML INJ IVP PRN (23:46)
[2017-04-18 05:24] LABS: % IMMATURE GRANULYOCYTES 0.3 % (0.0-1.1); ABSOLUTE IMMATURE GRANULOCYTES 0.02 10^3/uL (0.00-0.10); ABSOLUTE NRBC COUNT 0.02 10^3/uL (0-0.01); ADD DIFF? NO; ADD MORPH? NO; ADD SCAN? NO; ATYPICAL LYMPHOCYTE FLAG 0 (0-99); FRAGMENT RBC FLAG 0 (0-99); HEMATOCRIT 28.3 % (40.0-51.0); HEMOGLOBIN 9.3 g/dL (13.7-17.5); LEFT SHIFT FLG 0 (0-99); LIPEMIA HEMOLYSIS FLAG 80 (0-99); MEAN CELL HEMOGLOBIN 30.4 pg (27.9-34.1); MEAN CELL HEMOGLOBIN CONCENTR. 32.9 g/dL (32.4-36.7); MEAN CELL VOLUME 92.5 fL (81.5-99.8); MEAN PLATELET VOLUME 10.4 fL (8.7-11.7); NRBC-AUTO% 0.3 % (0.0-0.2); PLATELET CLUMPS FLAG 0 (0-99); PLATELET COUNT 133 10^3/uL (150-400); RED BLOOD CELL COUNT 3.06 10^6/uL (4.40-6.38); RED CELL DISTRIBUTION WIDTH 16.3 % (11.5-15.2)
[2017-04-18 05:43] LABS: ALANINE AMINOTRANSFERASE 40 IU/L (21-72); ALBUMIN 3.5 g/dL (3.5-5.0); ALKALINE PHOSPHATASE 135 IU/L (38-126); ANION GAP 9 mEq/L (8-16); ASPARTATE AMINOTRANSFERASE 75 IU/L (17-59); BILIRUBIN,TOTAL 1.9 mg/dL (0.1-1.4); CALCIUM 9.5 mg/dL (8.5-10.4); CARBON DIOXIDE 22 mEq/l (22-31); CHLORIDE 102 mEq/L (97-110); CREATININE 0.7 mg/dL (0.7-1.3); GLOMERULAR FILTRATION RATE > 60; GLUCOSE 151 mg/dL (70-100); MAGNESIUM 1.6 mg/dL (1.6-2.3); POTASSIUM 4.1 mEq/L (3.5-5.2); SODIUM 133 mEq/L (134-144); TOTAL PROTEIN 6.3 g/dL (6.3-8.2)
[2017-04-18] MEDS: LORazepam 2 MG/ML INJ IVP PRN ×2 (06:21→12:08)
[2017-04-18] MEDS: PANTOPRAZOLE SODIUM 40 MG in NS 100 ML IV SCH ×2 (07:49→19:47)
[2017-04-18] MEDS: LIDOCAINE 5% 1 EA PATCH TD SCH (07:49)
[2017-04-18] MEDS: LIPASE 6,000/AMYLASE/PROTEASE (CREON) 1 CAP PO SCH ×5 (07:49→19:46)
[2017-04-18] MEDS: INSULIN LISPRO 100 UNIT/ML SC SCH ×3 (07:50→17:39)
[2017-04-18] MEDS: FOLIC ACID 1 MG TAB PO SCH (07:50)
[2017-04-18] MEDS: GABAPENTIN 100 MG CAP PO SCH ×3 (07:50→21:27)
[2017-04-18] MEDS: MULTIVITAMINS 1 EACH TAB PO SCH (07:50)
[2017-04-18] MEDS: LISINOPRIL 20 MG TAB PO SCH (09:23)
[2017-04-18] MEDS: INSULIN GLARGINE 100 UNIT/ML VIAL SC SCH (09:23)
--- NOTE | 2017-04-18 15:35 | HOSPPROG ---
Hospitalist Progress Note Assessment/Plan: 51-year-old alcoholic is admitted with acute weakness thought secondary to acute alcohol induced myopathy. # alcohol-induced myopathy, acute and recurrent. Patient has presented to this facility previously with similar complaints. Last hospitalization he was scheduled for senior living rehab and he left against medical advice preferring to return to his homeless situation. * Continue PT and OT * Case management to work on disposition # alcohol intoxication, acute * Watch for withdrawal # anemia likely secondary to gastritis will follow H&H and provide proton pump inhibitor. # hypokalemia, electrolyte protocol # hip pain with negative workup likely osteoarthritis Subjective: Patient new to me and chart reviewed. No specific complaints today except for weakness. Objective: Vital Signs Temp Pulse Resp BP Pulse Ox 36.6 C 117 H 20 132/83 H 95 04/18/17 10:48 04/18/17 10:48 04/18/17 10:48 04/18/17 10:48 04/18/17 10:48 Laboratory Results 04/18/17 04:50 04/18/17 04:50 04/17/17 04/18/17 04/19/17 05:59 05:59 05:59 Intake Total 1700 3847 Output Total 1500 1250 300 Balance 200 2597 -300 PT 12.9 SEC (12.0-15.0) 04/15/17 22:47 INR 0.98 (0.83-1.16) 04/15/17 22:47 - Physical Exam Constitutional: chronically ill appearing, uncomfortable Eyes: PERRL Ears, Nose, Mouth, Throat: moist mucous membranes Cardiovascular: regular rate and rhythym Respiratory: no respiratory distress, clear to auscultation Gastrointestinal: normoactive bowel sounds, soft, non-tender abdomen Skin: warm Musculoskeletal: generalized weakness Neurologic: No facial droop Psychiatric: interacting appropriately, not anxious ICD10 Worksheet Patient Problems: Problems Problem Status Onset Alcohol withdrawal Acute Alcohol intoxication Acute Altered mental status Acute Contusion of right hip Acute Cervical strain, acute Acute Alcohol intoxication Acute Hyperglycemia Acute Leg weakness, bilateral Acute Inability to ambulate due to hip Acute Ataxia Acute
[2017-04-18] MEDS: LORazepam 1 MG TAB PO PRN (19:47)
[2017-04-18] MEDS: NS W/ 20 KCl/L 1,000 ML IV SCH (19:47)
[2017-04-18] MEDS: PATCH REMOVAL 1 EA PATCH TD SCH (20:14)
[2017-04-19] MEDS: INSULIN GLARGINE 100 UNITS/ML SYRINGE SC SCH ×3 (00:13→20:29)
[2017-04-19] MEDS: LORazepam 1 MG TAB PO PRN ×5 (00:13→20:26)
[2017-04-19] MEDS: INSULIN LISPRO 100 UNIT/ML SC SCH ×2 (07:45→17:41)
[2017-04-19] MEDS: GABAPENTIN 100 MG CAP PO SCH ×3 (07:45→20:26)
[2017-04-19] MEDS: MULTIVITAMINS 1 EACH TAB PO SCH (07:46)
[2017-04-19] MEDS: FOLIC ACID 1 MG TAB PO SCH (07:46)
[2017-04-19] MEDS: LIPASE 6,000/AMYLASE/PROTEASE (CREON) 1 CAP PO SCH ×5 (07:46→20:26)
[2017-04-19] MEDS: LISINOPRIL 20 MG TAB PO SCH (07:46)
[2017-04-19] MEDS: LIDOCAINE 5% 1 EA PATCH TD SCH (07:47)
[2017-04-19] MEDS: PANTOPRAZOLE SODIUM 40 MG in NS 100 ML IV SCH (07:47)
[2017-04-19] MEDS: THIAMINE HCL 100 MG TAB PO SCH (07:52)
[2017-04-19] MEDS: NICOTINE 14 MG/24 HR PATCH TD PRN (08:25)
[2017-04-19] MEDS ORDERED: INSULIN LISPRO 100 UNIT/ML SC SCH (09:39)
--- NOTE | 2017-04-19 09:41 | HOSPPROG ---
Hospitalist Progress Note Assessment/Plan: 51-year-old alcoholic is admitted with acute weakness thought secondary to acute alcohol induced myopathy. # alcohol-induced myopathy, acute and recurrent. Patient has presented to this facility previously with similar complaints. Last hospitalization he was scheduled for retirement rehab and he left against medical advice preferring to return to his homeless situation. * Continue PT and OT * Case management to work on disposition * Patient now refusing rehab and wants to go back to his homeless situation tomorrow. # conjunctivitis or blepharitis will start him on a antibiotic eyedrop. # significantly elevated blood sugars. Will increase his insulin Lantus and increase his home dose of Humalog. # alcohol intoxication, acute * Watch for withdrawal # anemia likely secondary to gastritis will follow H&H and provide proton pump inhibitor. # hypokalemia, electrolyte protocol # hip pain with negative workup likely osteoarthritis Subjective: No new complaints today. Objective: Vital Signs Temp Pulse Resp BP Pulse Ox 37.1 C 118 H 20 141/101 H 96 04/19/17 07:38 04/19/17 07:38 04/19/17 07:38 04/19/17 07:46 04/19/17 07:38 Laboratory Results 04/18/17 04:50 04/18/17 04:50 04/18/17 04/19/17 04/20/17 05:59 05:59 05:59 Intake Total 3847 1818 Output Total 1250 2075 Balance 2597 -257 PT 12.9 SEC (12.0-15.0) 04/15/17 22:47 INR 0.98 (0.83-1.16) 04/15/17 22:47 - Physical Exam Constitutional: no apparent distress, chronically ill appearing Eyes: PERRL, EOMI Ears, Nose, Mouth, Throat: moist mucous membranes Cardiovascular: regular rate and rhythym, no murmur, rub, or gallop Respiratory: no respiratory distress, no rales or rhonchi Gastrointestinal: normoactive bowel sounds, soft, non-tender abdomen Genitourinary: no bladder fullness Skin: warm Musculoskeletal: generalized weakness Neurologic: AAOx3 Psychiatric: interacting appropriately, not anxious, not encephalopathic ICD10 Worksheet Patient Problems: Problems Problem Status Onset Alcohol withdrawal Acute Alcohol intoxication Acute Altered mental status Acute Contusion of right hip Acute Cervical strain, acute Acute Alcohol intoxication Acute Hyperglycemia Acute Leg weakness, bilateral Acute Inability to ambulate due to hip Acute Ataxia Acute
[2017-04-19] MEDS ORDERED: INSULIN GLARGINE 100 UNITS/ML SYRINGE SC ONE (10:00)
[2017-04-19] MEDS: PANTOPRAZOLE SODIUM 40 MG TAB PO SCH ×2 (10:22→20:26)
[2017-04-19] MEDS: TOBRAMYCIN/DEXAMETH 5 ML OPHT.BTL EACHEYE SCH ×4 (11:33→20:39)
--- NOTE | 2017-04-19 16:30 | ASMTCMCOM ---
CM Note CM Note Notes: Per hospitalist, pt is refusing SNF d/c. He said he has Court dates and other things he needs to attend to after leaving the hospital. He wants to leave tomorrow and has declined the intermediate bed. Apparently Mounika Fritz, the Court Navigator, is going on vacation. Pt said she hasn't done much for him. He also has been told housing is available through [facility] but they haven't shown him any places. He also thinks his belongings were mixed up with a Pratik Cali who is also homeless and was in the ED at the same time. The talked with Security who do not have any items belonging to him. Date Signed: 04/19/2017 04:29 PM Electronically Signed By:GILBERT Mcnamara
[2017-04-19] MEDS ORDERED: IBUPROFEN 200 MG TAB PO PRN (20:24)
[2017-04-19] MEDS ORDERED: ACETAMINOPHEN 325 MG TAB PO PRN (20:24)
[2017-04-19] MEDS: PATCH REMOVAL 1 EA PATCH TD SCH (20:47)
[2017-04-19] MEDS ORDERED: INSULIN GLARGINE 100 UNITS/ML SYRINGE SC SCH (21:00)
[2017-04-19] MEDS ORDERED: INSULIN LISPRO 100 UNIT/ML SC ONE (22:15)
[2017-04-20] MEDS: TOBRAMYCIN/DEXAMETH 5 ML OPHT.BTL EACHEYE SCH ×6 (02:40→23:59)
[2017-04-20] MEDS: LORazepam 1 MG TAB PO PRN ×3 (06:04→17:42)
[2017-04-20] MEDS: LIDOCAINE 5% 1 EA PATCH TD SCH (07:40)
[2017-04-20] MEDS: PANTOPRAZOLE SODIUM 40 MG TAB PO SCH ×2 (07:41→22:48)
[2017-04-20] MEDS: LISINOPRIL 20 MG TAB PO SCH (07:41)
[2017-04-20] MEDS: INSULIN LISPRO 100 UNIT/ML SC SCH ×3 (07:41→16:28)
[2017-04-20] MEDS: INSULIN GLARGINE 100 UNITS/ML SYRINGE SC SCH ×2 (07:41→22:48)
[2017-04-20] MEDS: FOLIC ACID 1 MG TAB PO SCH (07:42)
[2017-04-20] MEDS: MULTIVITAMINS 1 EACH TAB PO SCH (07:42)
[2017-04-20] MEDS: THIAMINE HCL 100 MG TAB PO SCH (07:42)
[2017-04-20] MEDS: GABAPENTIN 100 MG CAP PO SCH ×3 (07:42→22:48)
[2017-04-20] MEDS: LIPASE 6,000/AMYLASE/PROTEASE (CREON) 1 CAP PO SCH ×5 (07:42→22:48)
[2017-04-20] MEDS: NICOTINE 14 MG/24 HR PATCH TD PRN (07:47)
--- NOTE | 2017-04-20 13:59 | HOSPPROG ---
Hospitalist Progress Note Assessment/Plan: 51-year-old alcoholic is admitted with acute weakness thought secondary to acute alcohol induced myopathy. # alcohol-induced myopathy, acute and recurrent. Patient has presented to this facility previously with similar complaints. Last hospitalization he was scheduled for senior living rehab and he left against medical advice preferring to return to his homeless situation. * Continue PT and OT. Continues to include proved daily * Patient now refusing rehab and wants to go back to his homeless situation tomorrow. # tachycardia, patient stable throughout his stay here with no hypoxia or other symptoms. Will continue to monitor possibly related to ongoing low-level withdrawal. # conjunctivitis or blepharitis will start him on a antibiotic eyedrop. # significantly elevated blood sugars. Will increase his insulin Lantus and increase his home dose of Humalog. # alcohol intoxication, acute * Watch for withdrawal, no evidence over the last several day # anemia likely secondary to gastritis will follow H&H and provide proton pump inhibitor. # hypokalemia, electrolyte protocol # hip pain with negative workup likely osteoarthritis Subjective: No new complaints Objective: Vital Signs Temp Pulse Resp BP Pulse Ox 36.8 C 111 H 19 120/82 H 96 04/20/17 12:00 04/20/17 12:00 04/20/17 12:00 04/20/17 12:00 04/20/17 12:00 Laboratory Results 04/18/17 04:50 04/18/17 04:50 04/19/17 04/20/17 04/21/17 05:59 05:59 05:59 Intake Total 1818 1205 Output Total 2075 Balance -257 1205 PT 12.9 SEC (12.0-15.0) 04/15/17 22:47 INR 0.98 (0.83-1.16) 04/15/17 22:47 - Physical Exam Constitutional: no apparent distress, chronically ill appearing Cardiovascular: tachycardia Respiratory: no respiratory distress Gastrointestinal: normoactive bowel sounds Skin: warm ICD10 Worksheet Patient Problems: Problems Problem Status Onset Alcohol withdrawal Acute Alcohol intoxication Acute Altered mental status Acute Contusion of right hip Acute Cervical strain, acute Acute Alcohol intoxication Acute Hyperglycemia Acute Leg weakness, bilateral Acute Inability to ambulate due to hip Acute Ataxia Acute
--- NOTE | 2017-04-20 16:27 | ASMTCMCOM ---
CM Note CM Note Notes: Pt requested clothing from the donation bin. CM provided pt w/ gloves and socks. Pt will be discharging independent when he is medically stable. CM available for changes. Date Signed: 04/20/2017 04:27 PM Electronically Signed By:GERMAN Su
[2017-04-20] MEDS: PATCH REMOVAL 1 EA PATCH TD SCH (23:59)
[2017-04-21] MEDS: LORazepam 1 MG TAB PO PRN ×2 (00:58→06:06)
[2017-04-21 03:36] VITALS: RESP 18; O2SAT 95
[2017-04-21 07:16] VITALS: BP 143/99; PULSE 99; TEMP 98.4
[2017-04-21] MEDS: LIDOCAINE 5% 1 EA PATCH TD SCH ×2 (08:25→08:38)
[2017-04-21] MEDS: INSULIN GLARGINE 100 UNITS/ML SYRINGE SC SCH (08:25)
[2017-04-21] MEDS: INSULIN LISPRO 100 UNIT/ML SC SCH (08:25)
[2017-04-21] MEDS: FOLIC ACID 1 MG TAB PO SCH (08:26)
[2017-04-21] MEDS: MULTIVITAMINS 1 EACH TAB PO SCH (08:26)
[2017-04-21] MEDS: LIPASE 6,000/AMYLASE/PROTEASE (CREON) 1 CAP PO SCH ×2 (08:26→08:28)
[2017-04-21] MEDS: PANTOPRAZOLE SODIUM 40 MG TAB PO SCH (08:27)
[2017-04-21] MEDS: LISINOPRIL 20 MG TAB PO SCH (08:27)
[2017-04-21] MEDS: GABAPENTIN 100 MG CAP PO SCH (08:27)
[2017-04-21] MEDS: THIAMINE HCL 100 MG TAB PO SCH (08:27)
--- NOTE | 2017-04-21 09:52 | GDS ---
[f rep st] DISCHARGE SUMMARY DIAGNOSES: 1. Alcohol-induced myopathy, acute and recurrent, improving at the time of discharge, patient refusi ng rehab. 2. Tachycardia, ongoing, with no hypoxia or other symptoms, likely low-level withdrawal. 3. Alcohol abuse, ongoing. 4. Conjunctivitis and blepharitis, treated with antibiotic eyedrops. 5. Diabetes. 6. Anemia, likely secondary to alcoholic gastritis. Patient discharged on proton-pump inhibitor. 7. Hypokalemia, resolved with replacement. 8. Hip pain, negative workup, likely osteoarthritis, treated with Lidoderm patch. HOSPITAL COURSE: The patient is a 51-year-old alcoholic homeless man who was admitted with acute wea kness thought secondary to acute alcohol-induced myopathy. He has had multiple admissions at [facility] with similar complaints. His last admission, he was recommended to go to a skilled rehab and it was set up until the day of discharge when he opted to leave and continue to be homeless rather th an going to skilled rehab. He was admitted with weakness, worked with Physical and [employer]o [employer] apy. He slowly got stronger and had some mild withdrawals during his stay here. It was again recomm ended he go to skilled rehab and the patient refused, preferring to go back to his homeless situation . His diabetes was slightly out of control in the hospital, but did improve over the course of his h ospitalization. He had some mild conjunctivitis, which was treated with TobraDex, and he was started on Protonix. CONDITION ON DISCHARGE: Good. PHYSICAL EXAMINATION: VITAL SIGNS: Stable. Heart rate 99, blood pressure 143/99, respirations 18. He is 95% on room air. GENERAL: He is alert and oriented. Exam is fairly benign. DISCHARGE MEDICATIONS: Please see discharge medication form. New medications include Lidoderm patch and Protonix. FOLLOWUP INSTRUCTIONS: He should follow up with Dr. Méndez in a week. Total time spent with the patient on the day of discharge and coordination of care is 35 minutes. /[id number]/MODL
[2017-04-21] MEDS: TOBRAMYCIN/DEXAMETH 5 ML OPHT.BTL EACHEYE SCH ×2 (10:54)
--- NOTE | 2017-04-21 12:19 | ASDISCHSUM ---
Discharge Information Plan Status:Home with No Needs Medically Cleared to Leave:04/21/2017 Discharge Date:04/21/2017 11:44 AM CM D/C Disposition: ADT D/C Disposition:Home, Routine, Self-Care Projected Discharge Date:04/21/2017 12:00 AM Transportation at D/C: Discharge Delay Reason: Follow-Up Date:04/21/2017 12:00 AM Discharge Slot: Final Diagnosis: Placement Information Patient Contact Information Contact Name:ANALI Relationship: Address:[address] [place] [address] Work Phone: City:[place] Alternate Phone: [facility]/Zip Code:[place] [address] Email: Financial Information Financial Class: Primary Plan Desc:MEDICAID [place] Primary Plan Number:[id number] Secondary Plan Desc: Secondary Plan Number: Assessment Information [facility] CM Progress Note CM Note CM Note Notes: Pt. is a 51-year-old man who goes by "Gonzalo" who was last d/c'ed on 04/01/17 from [facility] to the [place]. Pt. did not want to go to skilled nursing LTC stay at the time. Will re-visit this admission. Pt. admitted this time w/ lower extremity weakness. Hx. chronic pancreatitis, alcoholic hepatitis, chronic alcoholism, chronic neuropathy of the lower extremities, and Type 2 diabetes. Per H&P, Pt. not interested in stopping drinking at this time. Heather went to see Pt. in room alone today. Pt. seemed to remember SWer. Pt. was quite tremulous. Wondered where his friend's backpack might be. Pt. states friend came with him in ambulance. We discussed calling security for backpack when friend visits. SWer let Pt. know that SWer will come back tomorrow to discuss skilled nursing option. Pt. gave Heather explicit verbal consent to speak with Maya Varma Court Navigator about his situation. Heather called Maya who is very concerned about Pt. States he appears to be incontinent of bowel when she sees him in the community setting. Per Maya Pt. w/ history of delusions and hallucinations. Maya would like to be kept in the loop regarding Pt. Maya states Pt. might be interested in DNR status. SWer to let MD know to have this conversation w/ Pt. Daltonr will follow up w/ Pt. tomorrow on establishing MDPOA. SW/CM to follow. Date Signed: 04/16/2017 11:43 AM Electronically Signed By:Kenzie Sahu LCSW [facility] CM Progress Note CM Note CM Note Notes: SWer met w/ Pt. again today in room alone. Pt. still not able to articulate that he wants to go to a Medicaid LT skilled nursing stay for some 30-days. Pt. states he has Court dates to go to and other obligations that he is quite fixated on. Pt. does acknowledge that his homelessness is not conducive to him doing better, "cold and concrete do not help your legs do better". Pt. did feel that [facility] was managing his alcohol withdrawal well. Pt. also states fentanyl patch is very much helping his hip pain. SWer gave bedside RN Pt's feedback. SWer brought up in conversation who Pt. may want as his medical decision maker if he was not able to make is own decisions. Had a brief conversation that he would like his ex- Monica Scott to be his decision maker ideally, but she is now remarried and wants to move on. Daltonr informed Pt. that Maya Varma Court Navigator was willing to be his decision-maker only if he wanted it. Pt. became overwhelmed by conversation. MDPOA form not yet completed. Maya Varma plans to visit Pt. this evening at [facility]. Left MDPOA paperwork with fuel efficient automobile designer should he want to complete form. Also, let fuel efficient automobile designer know Pt. might change his mind about skilled nursing and CM would need to do ULTC 100 if Pt. is indeed interested in LTC. SWer called RN MOSHE who is covering floor tomorrow. Updated her on case. CM to follow for d/c POC. Date Signed: 04/17/2017 05:26 PM Electronically Signed By:Kenzie Sahu LCSW [facility] CM Progress Note CM Note CM Note Notes: Per hospitalist, pt is refusing SNF d/c. He said he has Court dates and other things he needs to attend to after leaving the hospital. He wants to leave tomorrow and has declined the [facility] bed. Apparently Mounika Fritz, the Court Navigator, is going on vacation. Pt said she hasn't done much for him. He also has been told housing is available through [facility] but they haven't shown him any places. He also thinks his belongings were mixed up with a Pratik Cali who is also homeless and was in the ED at the same time. The talked with Security who do not have any items belonging to him. Date Signed: 04/19/2017 04:29 PM Electronically Signed By:GILBERT Mcnamara [facility] MOSHE Progress Note CM Note CM Note Notes: Pt requested clothing from the donation bin. CM provided pt w/ gloves and socks. Pt will be discharging independent when he is medically stable. CM available for changes. Date Signed: 04/20/2017 04:27 PM Electronically Signed By:GERMAN Su Intervention Information
== END 2017-04-21 11:44 | disposition home or self-care (01) | DRG 91 ==
LOC: INTOOBSV 23:59 → F3E 04-16 01:21 → OBSVTOIN 04-16 14:33
PROVIDERS: ADMIT Family Medicine; ATTEND Internal Medicine
PROC: HZ2ZZZZ Detoxification Services for Substance Abuse Treatment (ICD-10-PCS; principal; 2017-04-16)
DX: G72.1 Alcoholic myopathy (principal); F10.230 Alcohol dependence with withdrawal, uncomplicated; F10.220 Alcohol dependence with intoxication, uncomplicated; Y90.8 Blood alcohol level of 240 mg/100 ml or more; H10.023 Other mucopurulent conjunctivitis, bilateral; E11.65 Type 2 diabetes mellitus with hyperglycemia; Z79.4 Long term (current) use of insulin; D50.0 Iron deficiency anemia secondary to blood loss (chronic); K29.21 Alcoholic gastritis with bleeding; E87.6 Hypokalemia; M16.11 Unilateral primary osteoarthritis, right hip; F20.9 Schizophrenia, unspecified; Z59.0 Homelessness
CPT/HCPCS: 80305; 84466-90; 96365; 97116-GP; 97162-GP; 97165-GO; 97535-GO; G0378; G0480; J1650; J1815; J2060; J3411; J3475

== ENCOUNTER 2017-05-11 13:54 | Emergency (ER) | payer MEDICAID ==
[2017-05-11] MEDS ORDERED: LORazepam 2 MG/ML INJ IVP ONE (15:11)
[2017-05-11] MEDS ORDERED: NS 1,000 ML IV ONE (15:11)
--- NOTE | 2017-05-11 15:11 | EDPHY ---
H & P Time Seen by Provider: 05/11/17 14:56 HPI/ROS: CHIEF COMPLAINT: Generalized weakness, having difficulty standing HISTORY OF PRESENT ILLNESS: 51-year-old male with a history of alcoholism and diabetes presents with recurrent weakness and difficulty ambulating. He has multiple prior emergency department visits and admissions for myopathy, related to alcoholism. He continues to have trouble getting up from a supine position to standing. He also has intermittent difficulty with ambulation. During his last admission earlier this month, it was suggested that he go to rehab, but he declined and went back to living on the streets. Since then he has continued to drink alcohol. Nothing has really changed today, except that is cold outside. No recent illness or injury. REVIEW OF SYSTEMS: Constitutional: No fever, no chills Eyes: No visual changes ENT: No sore throat Respiratory: No cough, no shortness of breath Cardiac: No chest pain Gastrointestinal: No nausea, no vomiting, no abdominal pain Genitourinary: no dysuria Musculoskeletal: No leg pain or swelling Skin: No rash Neurological: No headache Psychiatric: depression Past Medical/Surgical History: Alcoholism Myopathy Diabetes Social History: Homeless Smoking Status: Current every day smoker Physical Exam: General Appearance: Alert, cooperative Eyes: Pupils equal and round, no conjunctival pallor or injection ENT, Mouth: Mucous membranes moist Neck: Normal inspection Respiratory: Lungs are clear to auscultation Cardiovascular: Regular rate and rhythm Gastrointestinal: Abdomen is soft and nontender Neurological: A&O, resting tremor of the upper extremities, decreased strength in the lower extremities, 5-over 5 Skin: Warm and dry Extremities: Nontender, no pedal edema Psychiatric: flat affect Constitutional: Initial Vital Signs Temperature (C) 37.0 C 05/11/17 14:11 Heart Rate 122 H 05/11/17 14:11 Respiratory Rate 18 05/11/17 14:11 Blood Pressure 149/127 H 05/11/17 14:11 O2 Sat (%) 99 05/11/17 14:11 O2 Delivery Mode Room Air Allergies/Adverse Reactions: milk thistle (Silybum marianum) Allergy (Verified 03/30/17 14:55) Home Medications: Medication Instructions Recorded Lipase 6,000/Amylase/Protease 4 cap PO TIDMEAL 01/20/17 [Creon 6 (*)] Gabapentin [Neurontin 100 MG (*)] 100 mg PO TID 03/25/17 Insulin Detemir [Levemir] 8 unit SQ DAILY 03/25/17 Lisinopril [Zestril 20 mg (*)] 20 mg PO DAILY 03/25/17 Insulin Aspart [novoLOG] 5 unit SC TIDMEAL 04/16/17 Lipase 6,000/Amylase/Protease 2 cap PO BID 04/16/17 [Creon 6 (*)] Lidocaine 5% [Lidoderm 5% Patch 1 ea TD DAILY #30 patch 04/21/17 (*)] Pantoprazole Sodium [Protonix 40mg 40 mg PO DAILY #30 tab 04/21/17 (*)] Thiamine HCl [Vitamin B-1] 100 mg PO DAILY tab 04/21/17 Medical Decision Making ED Course/Re-evaluation: This patient presents with generalized and recurrent weakness, most likely secondary to alcoholic myopathy. He also appears to be in alcohol withdrawal, with a resting tremor and tachycardia. IV normal saline 1 L and Ativan 1 mg IV given. prototype engineer manager was consulted. 5:00 p.m.-able to walk with a steady gait. Repeat vital signs are normal. prototype engineer manager had a prolonged discussion with the patient and provided him with multiple options. He has been admitted in the past for similar symptoms and has refused rehab. Continues to refuse rehab today. He plans to continue drinking alcohol. Differential Diagnosis: Includes but not limited to CVA, hypoglycemia, dehydration, hyponatremia, infection. - Data Points Laboratory Results: Laboratory Results 05/11/17 15:40 05/11/17 15:40 05/11/17 05/11/17 15:40 15:40 WBC 5.39 10^3/uL 10^3/uL (3.80-9.50) RBC 3.39 10^6/uL L 10^6/uL (4.40-6.38) Hgb 9.7 g/dL L g/dL (13.7-17.5) Hct 30.0 % L % (40.0-51.0) MCV 88.5 fL fL (81.5-99.8) MCH 28.6 pg pg (27.9-34.1) MCHC 32.3 g/dL L g/dL (32.4-36.7) RDW 18.5 % H % (11.5-15.2) Plt Count 96 10^3/uL L 10^3/uL (150-400) MPV 10.6 fL fL (8.7-11.7) Neut % (Auto) 67.2 % % (39.3-74.2) Lymph % (Auto) 23.0 % % (15.0-45.0) Terrell % (Auto) 8.7 % % (4.5-13.0) Eos % (Auto) 0.7 % % (0.6-7.6) Baso % (Auto) 0.2 % L % (0.3-1.7) Nucleat RBC Rel Count 0.0 % % (0.0-0.2) Absolute Neuts (auto) 3.62 10^3/uL 10^3/uL (1.70-6.50) Absolute Lymphs (auto) 1.24 10^3/uL 10^3/uL (1.00-3.00) Absolute Monos (auto) 0.47 10^3/uL 10^3/uL (0.30-0.80) Absolute Eos (auto) 0.04 10^3/uL 10^3/uL (0.03-0.40) Absolute Basos (auto) 0.01 10^3/uL L 10^3/uL (0.02-0.10) Absolute Nucleated RBC 0.00 10^3/uL 10^3/uL (0-0.01) Immature Gran % 0.2 % % (0.0-1.1) Immature Gran # 0.01 10^3/uL 10^3/uL (0.00-0.10) Sodium 132 mEq/L L mEq/L (134-144) Potassium 4.0 mEq/L mEq/L (3.5-5.2) Chloride 94 mEq/L L mEq/L (97-110) Carbon Dioxide 24 mEq/l mEq/l (22-31) Anion Gap 14 mEq/L mEq/L (8-16) BUN 8 mg/dL mg/dL (7-23) Creatinine 0.8 mg/dL mg/dL (0.7-1.3) Estimated GFR > 60 Glucose 210 mg/dL H mg/dL (70-100) Calcium 9.0 mg/dL mg/dL (8.5-10.4) Ethyl Alcohol < 10 mg/dL mg/dL (0-10) Medications Given: Discontinued Medications Sodium Chloride (Ns) 1,000 mls @ 0 mls/hr IV EDNOW ONE; Wide Open PRN Reason: Protocol Stop: 05/11/17 15:12 Last Admin: 05/11/17 15:38 Dose: 1,000 mls Lorazepam (Ativan Injection) 1 mg IVP EDNOW ONE Stop: 05/11/17 15:12 Last Admin: 05/11/17 15:41 Dose: 1 mg Departure - Departure Disposition: Home, Routine, Self-Care Clinical Impression: Alcoholic myopathy Condition: Fair Instructions: Additional Information Additional Instructions: User cane to ambulate. Return with any concerns. Referrals: Mingo Méndez MD [Primary Care Provider] - 1-2 days without fail
[2017-05-11 16:08] LABS: PLATELET COUNT 96 10^3/uL (150-400)
[2017-05-11 16:28] VITALS: TEMP 98.4
[2017-05-11 17:50] VITALS: BP 141/98; PULSE 96; RESP 18; O2SAT 96
--- NOTE | 2017-05-12 20:33 | ASMTCMCOM ---
CM Note CM Note Notes: Late Entry from yesterday: Spoke with patient about current homelessness and safe discharge options. Patient was recently discharged from the hospital and at that time had declined/refused SNF placement and the reserved [facility] bed, so patient was discharged back to the street. Patient prefers outdoor camping to the shelters. Patient is a chronic acholic and has expressed he does not want to quit drinking at this time. Patient was brought into the ED for leg weakness, difficulty walking, by Officer Jack with [facility]'s Homeless Outreach Team, who is very familiar with the patient. Spoke with Officer Jack (contacted through [facility] non-emergent dispatch [phone]) and he states he took patient last week to complete Coordinated entry and patient ultimately didn't complete it because he didn't want to stay at the [facility]. Spoke today and discussed the CE process and possibility of transitional housing, case management assistance. Patient was initially hesitant/reluctant but ultimately he verbally agreed to follow-up with CE tomorrow. Patient was discharged via taxi voucher to the emergency warming [facility] location for the night ([facility]) and plan is that Officer Jack will meet patient at 7am at the [facility] to deliver patient's backpack and to also transport patient to his appt with [facility] at [facility] and then also transport patient to . This CM attempted to contact patient's court navigator, Maya Varma ([phone]) but was unable to get a hold of her. Also tried to connect with Danya, patient's embedded case manager at [facility], but office was closed. Spoke with Officer Santiago today and patient did follow through with his appointment with [facility] and he did complete the CE process. Officer Jack also stated it sounds like patient's embedded case manager Danya at [facility] is hoping to find patient housing soon, possibly this week, through their Section 8 voucher program (through [employer]). Date Signed: 05/12/2017 08:32 PM Electronically Signed By:Kenzie Loco RN
--- NOTE | 2017-05-12 20:33 | ASMTCMCOM ---
CM Note CM Note Notes: Late Entry from yesterday: Spoke with patient about current homelessness and safe discharge options. Patient was recently discharged from the hospital and at that time had declined/refused SNF placement and the reserved [facility] bed, so patient was discharged back to the street. Patient prefers outdoor camping to the shelters. Patient is a chronic acholic and has expressed he does not want to quit drinking at this time. Patient was brought into the ED for leg weakness, difficulty walking, by Officer Jack with [facility]'s Homeless Outreach Team, who is very familiar with the patient. Spoke with Officer Jack (contacted through [facility] non-emergent dispatch [phone]) and he states he took patient last week to complete Coordinated entry and patient ultimately didn't complete it because he didn't want to stay at the [facility]. Spoke today and discussed the CE process and possibility of transitional housing, case management assistance. Patient was initially hesitant/reluctant but ultimately he verbally agreed to follow-up with CE tomorrow. Patient was discharged via taxi voucher to the emergency warming [facility] location for the night ([facility]) and plan is that Officer Jack will meet patient at 7am at the [facility] to deliver patient's backpack and to also transport patient to his appt with [facility] at [facility] and then also transport patient to . This CM attempted to contact patient's court navigator, Maya Varma ([phone]) but was unable to get a hold of her. Also tried to connect with Danya, patient's rn case manager at [facility], but office was closed. Spoke with Officer Santiago today and patient did follow through with his appointment with [facility] and he did complete the CE process. Officer Jack also stated it sounds like patient's rn case manager Danya at [facility] is hoping to find patient housing soon, possibly this week, through their Section 8 voucher program (through [email or web address]). Date Signed: 05/12/2017 08:32 PM Electronically Signed By:Kenzie Loco RN
--- NOTE | 2017-05-12 20:33 | ASMTCMCOM ---
CM Note CM Note Notes: Late Entry from yesterday: Spoke with patient about current homelessness and safe discharge options. Patient was recently discharged from the hospital and at that time had declined/refused SNF placement and the reserved care home bed, so patient was discharged back to the street. Patient prefers outdoor camping to the shelters. Patient is a chronic acholic and has expressed he does not want to quit drinking at this time. Patient was brought into the ED for leg weakness, difficulty walking, by Officer Jack with [facility]'s Homeless Outreach Team, who is very familiar with the patient. Spoke with Officer Jack (contacted through [facility] non-emergent dispatch [phone]) and he states he took patient last week to complete Coordinated entry and patient ultimately didn't complete it because he didn't want to stay at the care home. Spoke today and discussed the CE process and possibility of transitional housing, case management assistance. Patient was initially hesitant/reluctant but ultimately he verbally agreed to follow-up with CE tomorrow. Patient was discharged via taxi voucher to the emergency warming care home location for the night ([facility]) and plan is that Officer Jack will meet patient at 7am at the [facility] to deliver patient's backpack and to also transport patient to his appt with [facility] at [facility] and then also transport patient to . This CM attempted to contact patient's court navigator, Maya Varma ([phone]) but was unable to get a hold of her. Also tried to connect with Danya, patient's case management social worker at [facility], but office was closed. Spoke with Officer Santiago today and patient did follow through with his appointment with [facility] and he did complete the CE process. Officer Jack also stated it sounds like patient's case management social worker Danya at [facility] is hoping to find patient housing soon, possibly this week, through their Section 8 voucher program (through [employer]). Date Signed: 05/12/2017 08:32 PM Electronically Signed By:Kenzie Loco RN
--- NOTE | 2017-05-12 20:34 | ASDISCHSUM ---
Discharge Information Plan Status:Homeless/Snf Medically Cleared to Leave: Discharge Date:05/11/2017 06:03 PM CM D/C Disposition:Streets (Homeless) ADT D/C Disposition:Home, Routine, Self-Care Projected Discharge Date:05/11/2017 06:03 PM Transportation at D/C:Cab Voucher Discharge Delay Reason: Follow-Up Date:05/11/2017 06:03 PM Discharge Slot: Final Diagnosis: Placement Information Patient Contact Information Contact Name:ANALI Relationship: Address:[address] [place] [address] Work Phone: City:[place] Alternate Phone: [facility]/Zip Code:[place] [address] Email: Financial Information Financial Class: Primary Plan 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 Patient was recently discharged from the hospital and at that time had declined/refused SNF placement and the reserved [facility] bed, so patient was discharged back to the street. Patient prefers outdoor camping to the shelters. Patient is a chronic acholic and has expressed he does not want to quit drinking at this time. Patient was brought into the ED for leg weakness, difficulty walking, by Officelobo Santiago with [facility]'s Homeless Outreach Team, who is very familiar with the patient. Spoke with Officer Jack (contacted through [facility] non-emergent dispatch [phone]) and he states he took patient last week to complete Coordinated entry and patient ultimately didn't complete it because he didn't want to stay at the [facility]. Spoke today and discussed the CE process and possibility of transitional housing, case management assistance. Patient was initially hesitant/reluctant but ultimately he verbally agreed to follow-up with CE tomorrow. Patient was discharged via taxi voucher to the emergency [facility] location for the night ([facility]) and plan is that Officer Jack will meet patient at 7am at the [facility] to deliver patient's backpack and to also transport patient to his appt with [facility] at [facility] and then also transport patient to CE. This CM attempted to contact patient's court navigator, Mayapopeye Varma ([phone]) but was unable to get a hold of her. Also tried to connect with Danya, patient's case picker at [facility], but office was closed. Spoke with Officer Jack today and patient did follow through with his appointment with [facility] and he did complete the CE process. Officer Jack also stated it sounds like patient's case picker Danya at [facility] is hoping to find patient housing soon, possibly this week, through their Section 8 voucher program (through [employer]). Date Signed: 05/12/2017 08:32 PM Electronically Signed By:Kenzie Loco RN LACE HILDA Emergency dept visits in Answers: 3 last 6 months Score: 3 Date Signed: 05/12/2017 08:33 PM Electronically Signed By:Kenzie Loco RN Intervention Information
--- NOTE | 2017-05-12 20:34 | ASDISCHSUM ---
Discharge Information Plan Status:Homeless/Fci Medically Cleared to Leave: Discharge Date:05/11/2017 06:03 PM CM D/C Disposition:Streets (Homeless) ADT D/C Disposition:Home, Routine, Self-Care Projected Discharge Date:05/11/2017 06:03 PM Transportation at D/C:Cab Voucher Discharge Delay Reason: Follow-Up Date:05/11/2017 06:03 PM Discharge Slot: Final Diagnosis: Placement Information Patient Contact Information Contact Name:ANALI Relationship: Address:[address] [place] [address] Work Phone: City:[place] Alternate Phone: [facility]/Zip Code:[place] [address] Email: Financial Information Financial Class: Primary Plan 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 Patient was recently discharged from the hospital and at that time had declined/refused SNF placement and the reserved group home bed, so patient was discharged back to the street. Patient prefers outdoor camping to the shelters. Patient is a chronic acholic and has expressed he does not want to quit drinking at this time. Patient was brought into the ED for leg weakness, difficulty walking, by Officelobo Santiago with [facility]'s Homeless Outreach Team, who is very familiar with the patient. Spoke with Officer Jack (contacted through [facility] non-emergent dispatch [phone]) and he states he took patient last week to complete Coordinated entry and patient ultimately didn't complete it because he didn't want to stay at the group home. Spoke today and discussed the CE process and possibility of transitional housing, case management assistance. Patient was initially hesitant/reluctant but ultimately he verbally agreed to follow-up with CE tomorrow. Patient was discharged via taxi voucher to the emergency [facility] group home location for the night ([facility]) and plan is that Officer Jack will meet patient at 7am at the [facility] to deliver patient's backpack and to also transport patient to his appt with [facility] at [facility] and then also transport patient to CE. This CM attempted to contact patient's court navigator, Mayapopeye Varma ([phone]) but was unable to get a hold of her. Also tried to connect with Danya, patient's pillowcase cleaner at [facility], but office was closed. Spoke with Officer Jack today and patient did follow through with his appointment with [facility] and he did complete the CE process. Officer Jack also stated it sounds like patient's pillowcase cleaner Danya at [facility] is hoping to find patient housing soon, possibly this week, through their Section 8 voucher program (through [employer]). Date Signed: 05/12/2017 08:32 PM Electronically Signed By:Kenzie Loco RN LACE HILDA Emergency dept visits in Answers: 3 last 6 months Score: 3 Date Signed: 05/12/2017 08:33 PM Electronically Signed By:Kenzie Loco RN Intervention Information
--- NOTE | 2017-05-12 20:34 | ASDISCHSUM ---
Discharge Information Plan Status:Homeless/Longterm Medically Cleared to Leave: Discharge Date:05/11/2017 06:03 PM CM D/C Disposition:Streets (Homeless) ADT D/C Disposition:Home, Routine, Self-Care Projected Discharge Date:05/11/2017 06:03 PM Transportation at D/C:Cab Voucher Discharge Delay Reason: Follow-Up Date:05/11/2017 06:03 PM Discharge Slot: Final Diagnosis: Placement Information Patient Contact Information Contact Name:ANALI Relationship: Address:[address] [place] [address] Work Phone: City:[place] Alternate Phone: [facility]/Zip Code:[place] [address] Email: Financial Information Financial Class: Primary Plan 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 Patient was recently discharged from the hospital and at that time had declined/refused SNF placement and the reserved [facility] bed, so patient was discharged back to the street. Patient prefers outdoor camping to the shelters. Patient is a chronic acholic and has expressed he does not want to quit drinking at this time. Patient was brought into the ED for leg weakness, difficulty walking, by Officelobo Santiago with [facility]'s Homeless Outreach Team, who is very familiar with the patient. Spoke with Officer Jack (contacted through [facility] non-emergent dispatch [phone]) and he states he took patient last week to complete Coordinated entry and patient ultimately didn't complete it because he didn't want to stay at the [facility]. Spoke today and discussed the CE process and possibility of transitional housing, case management assistance. Patient was initially hesitant/reluctant but ultimately he verbally agreed to follow-up with CE tomorrow. Patient was discharged via taxi voucher to the emergency [facility] location for the night ([facility]) and plan is that Officer Jack will meet patient at 7am at the [facility] to deliver patient's backpack and to also transport patient to his appt with [facility] at [facility] and then also transport patient to CE. This CM attempted to contact patient's court navigator, Mayapopeye Varma ([phone]) but was unable to get a hold of her. Also tried to connect with Danya, patient's telehealth case manager at [facility], but office was closed. Spoke with Officer Jack today and patient did follow through with his appointment with [facility] and he did complete the CE process. Officer Jack also stated it sounds like patient's telehealth case manager Danya at [facility] is hoping to find patient housing soon, possibly this week, through their Section 8 voucher program (through [employer]). Date Signed: 05/12/2017 08:32 PM Electronically Signed By:Kenzie Loco RN LACE HILDA Emergency dept visits in Answers: 3 last 6 months Score: 3 Date Signed: 05/12/2017 08:33 PM Electronically Signed By:Kenzie Loco RN Intervention Information
== END 2017-05-11 18:03 | disposition home or self-care (01) ==
PROC: 3E0337Z Introduction of Electrolytic and Water Balance Substance into Peripheral Vein, Percutaneous Approach (ICD-10-PCS; principal; 2017-05-11)
DX: G72.1 Alcoholic myopathy (principal); F10.20 Alcohol dependence, uncomplicated; E11.9 Type 2 diabetes mellitus without complications; F17.200 Nicotine dependence, unspecified, uncomplicated; E86.9 Volume depletion, unspecified; Z79.4 Long term (current) use of insulin
CPT/HCPCS: 96374; G0480; J2060

== ENCOUNTER 2017-06-16 21:08 | Emergency (ER) | payer MEDICAID ==
[2017-06-16] MEDS ORDERED: NS 1,000 ML IV ONE (21:17)
--- NOTE | 2017-06-16 21:21 | EDPHY ---
HPI/HX/ROS/PE/MDM Narrative: CHIEF COMPLAINT: Intoxication, AMS, hypothermia HPI: The patient is a 52 y/o male arriving via EMS for evaluation of intoxication, AMS, and hypothermia. This is his 18th ED visit this year related to alcohol abuse. His medical history including alcohol dependence, pancreatitis , alcohol withdrawal seizures, neuropathy, and diabetes type 2. He has previous admitted to drinking 1 pint of vodka daily. Tonight, his friend called EMS because the patient was not responding appropriately. EMS found him outside next to an empty bottle of vodka, minimally interactive, and hypothermic. Patient remains minimally interactive here and only tells me his name. His prehospital BGL was 65. Further history limited by patient condition. REVIEW OF SYSTEMS: Unable to obtain due to patient condition. PMH: Alcohol dependence, alcoholic pancreatic, pancreatitis, withdrawal seizures , coagulopathy, osteoarthritis, bilateral lower extremity weakness related to neuropathy, diabetes type 2, history of humerus and clavicle fractures Prior medical records reviewed including admission 04/15/17 for lower extremity weakness. SOCIAL HISTORY: Homeless. Alcohol abuse of 1 pint vodka/day. Smoker. PHYSICAL EXAM: General:Patient is somnolent, responsive to verbal stimulus, cold to the touch, smells of alcohol. Hypothermic at 33.6C. ENT:Eyes are normal to inspection, CURTIS. ENT inspection normal. Neck: Normal inspection. Full range of motion. Respiratory:No respiratory distress. Breath sounds normal bilaterally. Cardiovascular: Regular rate and rhythm. Strong peripheral pulses. Normal cap refill. Abdomen:The abdomen is nontender to palpation. There are no peritoneal signs. Back: Normal to inspection. No tenderness to palpation. Skin: Normal color. No rash. Cold and dry. Extremities: Normal appearance. Full range of motion. Neuro: Alert to verbal stimulus, will state his name, moving all 4 extremities. (Luis Fernando Moyer) ED Course: This is a 52 y/o male with a long history of chronic alcoholism and related pathologies who presents altered, smelling of alcohol, and hypothermic at 33.6C. He tells me his name, but otherwise is nonparticipatory in history and remains curled in position. He was immediately warmed with the Miguel A hugger and warm IV fluids. Labs drawn including EtOH serum level. EtOH serum: 367. (Luis Fernando Moyer) 1:33 a.m.- Patient's temperature is now 37 degree C. He feels well. He is able to walk with a steady gait. [facility] ( Alicia Blackwell) - Data Points Laboratory Results: Laboratory Results 06/16/17 21:43 06/16/17 21:43 06/16/17 06/16/17 21:43 21:43 WBC 4.82 10^3/uL 10^3/uL (3.80-9.50) RBC 3.84 10^6/uL L 10^6/uL (4.40-6.38) Hgb 10.8 g/dL L g/dL (13.7-17.5) Hct 32.5 % L % (40.0-51.0) MCV 84.6 fL fL (81.5-99.8) MCH 28.1 pg pg (27.9-34.1) MCHC 33.2 g/dL g/dL (32.4-36.7) RDW 21.9 % H % (11.5-15.2) Plt Count 132 10^3/uL L 10^3/uL (150-400) MPV 10.1 fL fL (8.7-11.7) Neut % (Auto) 70.4 % % (39.3-74.2) Lymph % (Auto) 21.4 % % (15.0-45.0) [place] % (Auto) 6.2 % % (4.5-13.0) Eos % (Auto) 1.2 % % (0.6-7.6) Baso % (Auto) 0.6 % % (0.3-1.7) Nucleat RBC Rel Count 0.0 % % (0.0-0.2) Absolute Neuts (auto) 3.39 10^3/uL 10^3/uL (1.70-6.50) Absolute Lymphs (auto) 1.03 10^3/uL 10^3/uL (1.00-3.00) Absolute Monos (auto) 0.30 10^3/uL 10^3/uL (0.30-0.80) Absolute Eos (auto) 0.06 10^3/uL 10^3/uL (0.03-0.40) Absolute Basos (auto) 0.03 10^3/uL 10^3/uL (0.02-0.10) Absolute Nucleated RBC 0.00 10^3/uL 10^3/uL (0-0.01) Immature Gran % 0.2 % % (0.0-1.1) Immature Gran # 0.01 10^3/uL 10^3/uL (0.00-0.10) Toxic Granulation PRESENT H Platelet Estimate DECREASED L (ADEQ) Polychromasia 1+ H Hypochromasia 2+ H Microcytic Cells 1+ H Elliptocytes 1+ H Acanthocytes (Spur) 1+ H Sodium 144 mEq/L mEq/L (134-144) Potassium 3.5 mEq/L mEq/L (3.5-5.2) Chloride 107 mEq/L mEq/L (97-110) Carbon Dioxide 21 mEq/l L mEq/l (22-31) Anion Gap 16 mEq/L mEq/L (8-16) BUN 12 mg/dL mg/dL (7-23) Creatinine 0.7 mg/dL mg/dL (0.7-1.3) Estimated GFR > 60 Glucose 81 mg/dL mg/dL (70-100) Calcium 8.1 mg/dL L mg/dL (8.5-10.4) Ethyl Alcohol 367 mg/dL H mg/dL (0-10) Medications Given: Discontinued Medications Sodium Chloride (Ns) 1,000 mls @ 0 mls/hr IV EDNOW ONE; Wide Open PRN Reason: Protocol Stop: 06/16/17 21:18 Last Admin: 06/16/17 21:19 Dose: 1,000 mls General Time Seen by Provider: 06/16/17 21:08 Initial Vital Signs: Initial Vital Signs Temperature (C) 33.6 C L 06/16/17 21:23 Heart Rate 59 L 06/16/17 21:23 Respiratory Rate 16 06/16/17 21:23 Blood Pressure 101/60 06/16/17 21:23 O2 Sat (%) 98 06/16/17 21:23 O2 Delivery Mode Room Air Allergies/Adverse Reactions: milk thistle (Silybum marianum) Allergy (Verified 03/30/17 14:55) Home Medications: Medication Instructions Recorded Lipase 6,000/Amylase/Protease 4 cap PO TIDMEAL 01/20/17 [Creon 6 (*)] Gabapentin [Neurontin 100 MG (*)] 100 mg PO TID 03/25/17 Insulin Detemir [Levemir] 8 unit SQ DAILY 03/25/17 Lisinopril [Zestril 20 mg (*)] 20 mg PO DAILY 03/25/17 Insulin Aspart [novoLOG] 5 unit SC TIDMEAL 04/16/17 Lipase 6,000/Amylase/Protease 2 cap PO BID 04/16/17 [Creon 6 (*)] Lidocaine 5% [Lidoderm 5% Patch 1 ea TD DAILY #30 patch 04/21/17 (*)] Pantoprazole Sodium [Protonix 40mg 40 mg PO DAILY #30 tab 04/21/17 (*)] Thiamine HCl [Vitamin B-1] 100 mg PO DAILY tab 04/21/17 Departure - Departure Disposition: Home, Routine, Self-Care Clinical Impression: Alcohol intoxication Qualifiers: Complication of substance-induced condition: with unspecified complication Qualified Code(s): F10.929 - Alcohol use, unspecified with intoxication, unspecified Hypothermia Qualifiers: Encounter type: initial encounter Qualified Code(s): T68.XXXA - Hypothermia, initial encounter Altered mental status Qualifiers: Altered mental status type: somnolence Qualified Code(s): R40.0 - Somnolence Condition: Good Instructions: Abuse of Alcohol (ED), Acute Hypothermia (ED), Alcohol Use Disorder (ED) Additional Instructions: Medically clear for detox. Avoid abuse of alcohol. Referrals: Mingo Méndez MD [Primary Care Provider] - As per Instructions [facility] 24 Hours [Outside] - As per Instructions Report Scribed for: Luis Fernando Moyer Report Scribed by: Esperanza Welch Date of Report: 06/16/17 Time of Report: 21:31 Physician Review and Approval Statement: Portions of this note were transcribed by an ED scribe. I personally performed the history, physical exam, and medical decision making; and confirm the accuracy of the information in the transcribed note.
[2017-06-16 21:51] LABS: % IMMATURE GRANULYOCYTES 0.2 % (0.0-1.1); ABSOLUTE IMMATURE GRANULOCYTES 0.01 10^3/uL (0.00-0.10); ADD DIFF? NO; ADD MORPH? YES; ADD SCAN? NO; ATYPICAL LYMPHOCYTE FLAG 0 (0-99); FRAGMENT RBC FLAG 20 (0-99); HEMATOCRIT 32.5 % (40.0-51.0); HEMOGLOBIN 10.8 g/dL (13.7-17.5); LEFT SHIFT FLG 0 (0-99); LIPEMIA HEMOLYSIS FLAG 80 (0-99); MEAN CELL HEMOGLOBIN 28.1 pg (27.9-34.1); MEAN CELL HEMOGLOBIN CONCENTR. 33.2 g/dL (32.4-36.7); MEAN CELL VOLUME 84.6 fL (81.5-99.8); MEAN PLATELET VOLUME 10.1 fL (8.7-11.7); PLATELET CLUMPS FLAG 10 (0-99); PLATELET COUNT 132 10^3/uL (150-400); RED BLOOD CELL COUNT 3.84 10^6/uL (4.40-6.38)
[2017-06-16 21:55] LABS: RED CELL DISTRIBUTION WIDTH 21.9 % (11.5-15.2)
[2017-06-16 22:07] LABS: ANION GAP 16 mEq/L (8-16); CALCIUM 8.1 mg/dL (8.5-10.4); CARBON DIOXIDE 21 mEq/l (22-31); CHLORIDE 107 mEq/L (97-110); CREATININE 0.7 mg/dL (0.7-1.3); GLOMERULAR FILTRATION RATE > 60; GLUCOSE 81 mg/dL (70-100); POTASSIUM 3.5 mEq/L (3.5-5.2); SODIUM 144 mEq/L (134-144)
[2017-06-16 22:22] LABS: ETHANOL SERUM 367 mg/dL (0-10); HYPOCHROMIA 2+; MICROCYTES 1+
[2017-06-16 22:24] LABS: POLYCHROMASIA 1+
[2017-06-16 22:25] LABS: ACANTHOCYTES 1+; ELLIPTOCYTES 1+; PLATELET ESTIMATE DECREASED (ADEQ)
[2017-06-16 22:28] LABS: TOXIC GRANULATION PRESENT
[2017-06-17 01:56] VITALS: BP 112/80; PULSE 60; RESP 17; TEMP 98.8; O2SAT 96
== END 2017-06-17 01:54 | disposition home or self-care (01) ==
LOC: EDUNIT#
DX: R40.0 Somnolence (principal); T68.XXXA Hypothermia, initial encounter; F10.929 Alcohol use, unspecified with intoxication, unspecified; E11.9 Type 2 diabetes mellitus without complications; E86.9 Volume depletion, unspecified; Z79.4 Long term (current) use of insulin; X31.XXXA Exposure to excessive natural cold, initial encounter
CPT/HCPCS: G0480

== ENCOUNTER 2017-08-21 14:27 | Emergency (ER) | payer MEDICAID ==
[2017-08-21] MEDS ORDERED: NS 1,000 ML IV ONE (14:54)
[2017-08-21] MEDS ORDERED: ONDANSETRON 4 MG/2 ML VIAL IVP ONE (15:12)
[2017-08-21 15:13] LABS: PLATELET COUNT 78 10^3/uL (150-400)
[2017-08-21] MEDS ORDERED: LORazepam 2 MG/ML INJ IVP ONE (15:19)
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
[2017-08-21 20:18] VITALS: RESP 19; O2SAT 94
[2017-08-21] MEDS ORDERED: ACETAMINOPHEN 500 MG TAB PO ONE (20:18)
[2017-08-21 20:31] VITALS: BP 112/78; PULSE 99; TEMP 98.2
== END 2017-08-21 20:52 | disposition home or self-care (01) ==
LOC: EDUNIT#
DX: S09.90XA Unspecified injury of head, initial encounter (principal); F10.129 Alcohol abuse with intoxication, unspecified; E11.9 Type 2 diabetes mellitus without complications; I10 Essential (primary) hypertension; F17.200 Nicotine dependence, unspecified, uncomplicated; Z79.4 Long term (current) use of insulin; W18.39XA Other fall on same level, initial encounter
CPT/HCPCS: 96374; G0480

== ENCOUNTER 2017-08-23 17:57 | Inpatient (IN) | payer MEDICAID ==
[2017-08-23] MEDS ORDERED: NS 1,000 ML IV ONE (18:12)
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
[2017-08-23 18:18] LABS: PLATELET COUNT 53 10^3/uL (150-400)
[2017-08-23 18:29] LABS: INR 1.13 (0.83-1.16); PROTIME(PATIENT) 14.7 SEC (12.0-15.0)
[2017-08-23] MEDS ORDERED: D5W 1/2 NS 1,000 ML IV SCH (19:15)
[2017-08-23] MEDS ORDERED: oxyCODONE IR 5 MG TAB PO PRN (22:46)
[2017-08-23] MEDS ORDERED: ONDANSETRON 4 MG/2 ML VIAL IVP PRN (22:46)
[2017-08-24] MEDS ORDERED: LORazepam 1 MG TAB PO PRN (00:11)
[2017-08-24] MEDS: chlordiazePOXIDE 25 MG CAP PO SCH ×2 (00:24→10:58)
[2017-08-24] MEDS ORDERED: D50W 25 GM/50 ML SYR IVP PRN (01:09)
[2017-08-24] MEDS: THIAMINE HCL 100 MG TAB PO SCH ×2 (01:10→10:58)
[2017-08-24] MEDS: PANTOPRAZOLE SODIUM 40 MG TAB PO SCH ×2 (01:24→10:58)
[2017-08-24] MEDS ORDERED: 1/2 NS 1,000 ML IV SCH (02:00)
[2017-08-24] MEDS: LORazepam 2 MG/ML INJ IVP PRN ×3 (02:31→04:41)
[2017-08-24] MEDS ORDERED: DEXMEDETOMIDINE HCL 400 MCG in NS 100 ML IV SCH (05:00)
[2017-08-24 05:02] LABS: PLATELET COUNT 32 10^3/uL (150-400)
[2017-08-24] MEDS: DEXMEDETOMIDINE IN 0.9 % NACL 50 ML IV SCH ×2 (05:15→06:54)
[2017-08-24] MEDS ORDERED: ALBUMIN 5% 500 ML BOTTLE IV ONE (06:49)
[2017-08-24] MEDS ORDERED: ALBUMIN 5% 500 ML IV ONE ×3 (07:30→08:00)
[2017-08-24] MEDS ORDERED: NS 1,000 ML IV ONE ×5 (07:30→11:00)
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
[2017-08-24] MEDS ORDERED: SODIUM BICARBONATE 50 MEQ/50 ML SYR IVP ONE (07:49)
[2017-08-24] MEDS ORDERED: FOLIC ACID 1 MG TAB PO SCH (09:00)
[2017-08-24] MEDS ORDERED: D5W NS 1,000 ML IV SCH (09:00)
[2017-08-24] MEDS ORDERED: MULTIVITAMINS 1 EACH TAB PO SCH (09:00)
[2017-08-24] MEDS ORDERED: ENOXAPARIN 30 MG/0.3 ML SYR SC SCH (09:00)
[2017-08-24] MEDS: INSULIN LISPRO 100 UNIT/ML SC SCH ×2 (09:17→12:10)
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
[2017-08-24] MEDS ORDERED: ALBUMIN 25% 100 ML IV ONE (09:30)
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
--- NOTE | 2017-08-24 10:16 | WOCRNPDOC ---
WOCRN Advanced Assessment Note - Skin Integrity Problem, Advanced Assess Medial Scalp Laceration Dressing Type: Band Aid, Gauze Dressing Description: Intact, Shadowed Exudate Amount: None Integumentary Issue Intervention: Dressing Removed Margo Wound Tissue: Ecchymotic Margo Wound Swelling: Severe Wound Edges: Irregular Site Measurement - Head-to-Toe Length X Width X Depth (cm): 3x0.7x1 Skin Integrity Problem Comment: Wound bed full of dried blood and it could not be visualized. Advised to apply copious wound gel and cover with Allevyn Life. Wound care will round again tomorrow to see and will update order accordingly. Lennie RN in room.
[2017-08-24] MEDS ORDERED: ALTEPLASE 2 MG VIAL IVP PRN (10:35)
[2017-08-24] MEDS ORDERED: THIAMINE HCL 500 MG in NS 100 ML IV SCH (11:15)
[2017-08-24] MEDS ORDERED: THIAMINE HCL 500 MG in NS 250 ML IV SCH ×2 (11:15→11:30)
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
[2017-08-24] MEDS ORDERED: NOREPINEPHRINE/NS 500 ML IV SCH (11:30)
[2017-08-24] MEDS ORDERED: PANTOPRAZOLE SODIUM 40 MG VIAL IVP SCH (11:30)
[2017-08-24] MEDS ORDERED: PIPERACILLIN/TAZO 2.25 GM/DEX 50 ML IV SCH (12:00)
[2017-08-24 12:04] VITALS: TEMP 101.1
[2017-08-24 12:17] VITALS: BP 98/48; PULSE 115; RESP 33; O2SAT 85
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
[2017-08-24] MEDS ORDERED: GABAPENTIN 100 MG CAP PO SCH (16:00)
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
== END 2017-08-24 13:00 | disposition expired | DRG 871 ==
LOC: EDUNIT# → F3E 21:43 → F2N 08-24 05:04
PROVIDERS: ADMIT Internal Medicine; ATTEND Internal Medicine
DX: A41.9 Sepsis, unspecified organism (principal); R65.21 Severe sepsis with septic shock; J96.01 Acute respiratory failure with hypoxia; E87.2 Acidosis; N17.9 Acute kidney failure, unspecified; G93.40 Encephalopathy, unspecified; S00.83XA Contusion of other part of head, initial encounter; S01.01XA Laceration without foreign body of scalp, initial encounter; W19.XXXA Unspecified fall, initial encounter; R40.2411 Glasgow coma scale score 13-15, in the field [EMT or ambulance]; I95.9 Hypotension, unspecified; F10.220 Alcohol dependence with intoxication, uncomplicated; Y90.8 Blood alcohol level of 240 mg/100 ml or more; D63.8 Anemia in other chronic diseases classified elsewhere; D69.6 Thrombocytopenia, unspecified; K70.9 Alcoholic liver disease, unspecified; E10.9 Type 1 diabetes mellitus without complications; Z91.14 Patient's other noncompliance with medication regimen; I10 Essential (primary) hypertension; F20.9 Schizophrenia, unspecified; F17.210 Nicotine dependence, cigarettes, uncomplicated; G62.9 Polyneuropathy, unspecified; M50.30 Other cervical disc degeneration, unspecified cervical region; Z79.4 Long term (current) use of insulin; Z87.820 Personal history of traumatic brain injury; Z91.81 History of falling; Z59.0 Homelessness; Z66 Do not resuscitate
CPT/HCPCS: 80307; 96365; 96366; G0480; J2060; J2543; J3411; P9041; P9047